=== PATIENT | male | born 1955 | race Caucasian/White ===

== ENCOUNTER 2016-05-06 16:49 | Emergency (ER) | payer BC ==
[~2016-05-06] VITALS: Ht 180.3 cm; Wt 143.2 kg
[~2016-05-06 16:49] MED LIST: ATEN100T PO; ATOR-22 PO; FLX10 PO; GLIM1TAB PO; OXYC1TAB3 PO; OXYSR10 PO; [UNRECOGNIZED DRUG - OTHER] MS
[2016-05-06 16:56] VITALS: TEMP 36.7; Ht 180.3 cm; Wt 143.2 kg
[2016-05-06] MEDS ORDERED: IBUP-1428 PO (17:22)
[2016-05-06] MEDS: LABETALOL HCL IV 5 MG/ML 20ML IV STA ×2 (17:25→17:52)
--- NOTE | 2016-05-06 17:29 | EMERGENCY ROOM VISIT NOTE ---
History Report prepared by Timoteo: Jan Leal Under the Supervision of: Dr. Keaton Morgan M.D. First contact with patient: 17:10 Chief Complaint: HYPERTENSION Stated Complaint: HYPERTENSION, ELEVATED HEART R- PHYSICIAN REFERRED History of Present Illness The patient is a 61 year old male who presents to the Emergency Room with complaints of persistent hypertension that was detected prior to arrival. The patient was referred here from his primary care physician, after it was found that the patient's heart rate was elevated and his blood pressure was "off the charts". Currently, the patient says that he feels fine and has been feeling fine, except for a cough that he has had for a couple weeks. He denies nausea, vomiting, fevers, chest pain, shortness of breath, abdominal pain, urinary burning, or leg swelling. He has chronic hypertension, but no history of diabetes. He does have a chronic tremor. He has no history of pneumonia. Source of History: patient Onset: Prior to arrival Position: other (global - hypertension) Timing: other (persistent) Associated Symptoms: + cough, No SOB, No abdominal pain, No chest pain, No fevers, No nausea, No urinary symptoms, No vomiting Note: Associated symptoms: Elevated heart rate. Denies leg swelling. Review of Systems See HPI for pertinent positives & negatives. A total of 10 systems reviewed and were otherwise negative. Past Medical & Surgical Medical Problems: (1) Hyperlipidemia (2) Hypertension (3) Tremor Surgical Problems: (1) Post-operative state Family History FHx: cancer Social History Smoking Status: Former Smoker Marital Status: single Housing Status: lives alone Occupation Status: employed Current/Historical Medications Scheduled Atenolol (Tenormin), 100 MG PO QAM Ibuprofen (Motrin), 800 MG PO QAM Allergies Coded Allergies: Erythromycin (Unverified Allergy, Unknown, per PCP/cardio note , 05/06/16) Physical Exam Vital Signs Date Time Temp Pulse Resp B/P Pulse Ox O2 Delivery O2 Flow Rate FiO2 05/06/16 18:59 101 18 132/88 97 05/06/16 18:32 112 132/88 05/06/16 17:36 110 20 180/97 96 05/06/16 17:25 116 20 182/94 95 05/06/16 16:56 36.7 108 18 202/118 96 Room Air Physical Exam GENERAL: Patient is morbidly obese, in no acute distress. HEENT: No acute trauma, normocephalic atraumatic, mucous membranes moist, no nasal congestion, no scleral icterus. NECK: No stridor, no adenopathy, no meningismus, trachea is midline. LUNGS: No dyspnea. Clear to auscultation and equal bilaterally. No wheeze, no rhonchi. HEART: Tachycardic heart rate and regular rhythm. No murmurs, rubs, gallops appreciated. ABDOMEN: Soft, nontender, bowel sounds positive, no masses appreciated, no peritonitis. BACK: No midline tenderness, no CVA tenderness EXTREMITIES: Normal motion all extremities, no cyanosis, no edema. NEUROLOGIC: Flat affect. Has a tremor. Alert and oriented, no focal weakness, cranial nerves grossly intact. SKIN: No rash, no jaundice, no diaphoresis. Medical Decision & Procedures ER Provider Diagnostic Interpretation: X ray results are stated below per my interpretation and the radiologist's interpretation. CHEST ONE VIEW PORTABLE CLINICAL HISTORY: tachycardia COMPARISON STUDY: 12/22/2014 FINDINGS: Generator pack spur presumed bilateral neural stimulators are again visualized. The heart is the upper limits of normal in size. There is ill-definition left hemidiaphragm. This may indicate a small left pleural effusion and/or left basilar atelectasis/consolidation. There is mild central vascular prominence. Evaluation is limited given the patient's large body habitus and AP portable technique.[ IMPRESSION: 1. Mild central vascular prominence 2. Ill-defined left hemidiaphragm. A left pleural effusion and/or left basilar atelectasis/consolidation cannot be excluded 3. Technically limited study given the patient's large body habitus and AP portable technique Electronically signed by: Deepak Huggins M.D. 05/06/2016 5:47 PM Dictated Date/Time: 05/06/2016 5:45 PM Laboratory Results 05/06/16 17:15 Red Blood Count 4.72, Mean Corpuscular Volume 85.4, Mean Corpuscular Hemoglobin 26.7, Mean Corpuscular Hemoglobin Concent 31.3, Mean Platelet Volume 9.7, Neutrophils (%) (Auto) 72.0, Lymphocytes (%) (Auto) 16.7, Monocytes (%) (Auto) 9.2, Eosinophils (%) (Auto) 1.3, Basophils (%) (Auto) 0.4, Neutrophils # (Auto) 3.74, Lymphocytes # (Auto) 0.87, Monocytes # (Auto) 0.48, Eosinophils # (Auto) 0.07, Basophils # (Auto) 0.02 05/06/16 17:15 Test 05/06/16 17:15 05/06/16 17:21 White Blood Count 5.20 K/uL (4.8-10.8) Red Blood Count 4.72 M/uL (4.7-6.1) Hemoglobin 12.6 g/dL (14.0-18.0) Hematocrit 40.3 % (42-52) Mean Corpuscular Volume 85.4 fL (80-100) Mean Corpuscular Hemoglobin 26.7 pg (25-34) Mean Corpuscular Hemoglobin Concent 31.3 g/dl (32-36) Platelet Count 300 K/uL (130-400) Mean Platelet Volume 9.7 fL (7.4-10.4) Neutrophils (%) (Auto) 72.0 % Lymphocytes (%) (Auto) 16.7 % Monocytes (%) (Auto) 9.2 % Eosinophils (%) (Auto) 1.3 % Basophils (%) (Auto) 0.4 % Neutrophils # (Auto) 3.74 K/uL (1.4-6.5) Lymphocytes # (Auto) 0.87 K/uL (1.2-3.4) Monocytes # (Auto) 0.48 K/uL (0.11-0.59) Eosinophils # (Auto) 0.07 K/uL (0-0.5) Basophils # (Auto) 0.02 K/uL (0-0.2) RDW Standard Deviation 47.2 fL (36.4-46.3) RDW Coefficient of Variation 14.9 % (11.5-14.5) Immature Granulocyte % (Auto) 0.4 % Immature Granulocyte # (Auto) 0.02 K/uL (0.00-0.02) Anion Gap 8.0 mmol/L (3-11) Est Creatinine Clear Calc Drug Dose 144.1 ml/min Estimated GFR () 113.1 Estimated GFR (Non- 97.6 BUN/Creatinine Ratio 22.5 (10-20) Calcium Level 8.4 mg/dl (8.5-10.1) Troponin I < 0.015 ng/ml (0-0.045) C-Reactive Protein 0.39 mg/dl (0-0.29) Bedside Glucose 146 mg/dl (70-99) Laboratory results as reviewed by me. Medications Administered Medications (Trade) Dose Ordered Sig/Parris Route Start Time Stop Time Status Last Admin Dose Admin Metoprolol Tartrate 5 mg 5 mg NOW STAT IV 05/06/16 18:21 05/06/16 18:23 DC 05/06/16 18:32 5 MG Sodium Chloride (Nss 250ml) 250 ml @ 999 mls/hr Q16M STAT IV 05/06/16 18:21 05/06/16 18:36 DC 05/06/16 18:31 999 MLS/HR ECG Indication: other (hypertension) Rate (beats per minute): 116 Rhythm: other (very poor baseline, appears to be tachycardic rate, unknown otherwise) Findings: other (very poor baseline) Change: Repeat ECG: Sinus tachycardia at 111 bpm, PVC, no acute ischemic changes, poor baseline. ED Course 172: The patient was evaluated in room B4B. A complete history and physical exam was performed. 172: Ordered Normodyne IV 20 mg IV. 1820: Ordered NSS 250 ml @ 999 mls/hr IV, Lopressor IV 5 mg IV. 182: I reevaluated the patient and he remembers that he did not take his Atenolol this morning. 1845: Reevaluated the patient and his heart rate is down to the 90s and he wants to go home. Discussed results and discharge instructions: He verbalized understanding and agreement. The patient is ready for discharge. Medical Decision Differential: Benign Hypertension, Hypertensive Urgency/Emergency, Cardiovascular Pathology, Endocrine, Metabolic/Electrolyte, Renal Disease, Endorgan Damage, amongst other pathologies entertained. 61 yr old male with chronic tremor arrives from PCP due to hypertension and tachycardia. Work-up benign and BP trending down on its own. He is in no distress and denies any symptoms. He refuses UA. After further discussions it became clear patient has been severely non-compliant with his meds, including atenolol which he has not been taking. Tachy resolved with lopressor. I have discussed the dangers of med noncompliance. There is no indication for admission/obs at this time and patient is not interested in further work-up nor evaluation. Aware of symptoms requiring RTED. Impression Primary Impression: Tachycardia Additional Impressions: Hypertension Medical non-compliance Scribe Attestation The scribe's documentation has been prepared under my direction and personally reviewed by me in its entirety. I confirm that the note above accurately reflects all work, treatment, procedures, and medical decision making performed by me. Departure Information Dispostion Home / Self-Care Referrals Nickolas Friedman M.D. (PCP) Patient Instructions My [facility] Additional Instructions It is very important that you take your medications as prescribed. If you have chest pain, passing out, difficulty breathing, vomiting, severe headache, weakness or other concerns return for further evaluation. Problem Qualifiers Additional Impressions: Hypertension Hypertension type: essential hypertension Qualified Codes: I10 - Essential ( primary) hypertension
[2016-05-06 17:35] LABS: BASO % 0.4 %; BASO ABS # 0.02 K/uL (0-0.2); COMPLETE YES; EOS % 1.3 %; HEMATOCRIT 40.3 % (42-52); IG% 0.4 %; LYMPH % 16.7 %; LYMPH ABS # 0.87 K/uL (1.2-3.4); MEAN CELL VOLUME 85.4 fL (80-100); MEAN CORPUSCULAR HEMOGLOBIN 26.7 pg (25-34); MEAN CORPUSCULAR HGB CONC 31.3 g/dl (32-36); MEAN PLATELET VOLUME 9.7 fL (7.4-10.4); MONO % 9.2 %; PLATELET COUNT 300 K/uL (130-400); RED BLOOD COUNT 4.72 M/uL (4.7-6.1)
--- NOTE | 2016-05-06 17:48 | DIAGNOSTIC IMAGING REPORT ---
CHEST ONE VIEW PORTABLE CLINICAL HISTORY: tachycardia COMPARISON STUDY: 12/22/2014 FINDINGS: Generator pack spur presumed bilateral neural stimulators are again visualized. The heart is the upper limits of normal in size. There is ill-definition left hemidiaphragm. This may indicate a small left pleural effusion and/or left basilar atelectasis/consolidation. There is mild central vascular prominence. Evaluation is limited given the patient's large body habitus and AP portable technique.[ IMPRESSION: 1. Mild central vascular prominence 2. Ill-defined left hemidiaphragm. A left pleural effusion and/or left basilar atelectasis/consolidation cannot be excluded 3. Technically limited study given the patient's large body habitus and AP portable technique Electronically signed by: Deepak Huggins M.D. 05/06/2016 5:47 PM Dictated Date/Time: 05/06/2016 5:45 PM
[2016-05-06 17:54] LABS: BLOOD UREA NITROGEN 18 mg/dl (7-18); BUN/CREATININE RATIO 22.5 (10-20); CALCIUM 8.4 mg/dl (8.5-10.1); CARBON DIOXIDE 25 mmol/L (21-32); CHLORIDE 104 mmol/L (98-107); CREATININE 0.79 mg/dl (0.60-1.40); GLUCOSE 150 mg/dl (70-99); POTASSIUM 4.1 mmol/L (3.5-5.1); SODIUM 137 mmol/L (136-145)
[2016-05-06 17:59] LABS: C-REACTIVE PROTEIN 0.39 mg/dl (0-0.29)
[2016-05-06] MEDS ORDERED: METOPROLOL TARTRATE 1 MG/ML VIAL IV STA (18:21)
[2016-05-06] MEDS ORDERED: SODIUM CHLORIDE 0.9% 250ML 250 ML IV STA (18:21)
[2016-05-06 18:59] VITALS: BP 132/88; PULSE 101; O2SAT 97
[2016-08-13] MEDS ORDERED: LSX40 PO (08:54)
[2016-08-13] MEDS ORDERED: GLC500 PO (08:54)
[2016-08-13] MEDS ORDERED: MCRK20 PO (08:54)
[2016-08-13] MEDS ORDERED: LSN5 PO (08:54)
[2016-08-13] MEDS ORDERED: ASPEC81 PO (08:54)
[2016-08-13] MEDS ORDERED: SNM/25100 PO (08:54)
[2016-08-13] MEDS ORDERED: TPRSR25 PO (08:54)
[2016-08-13] MEDS ORDERED: ULT50X PO (08:54)
[2016-08-21] MEDS ORDERED: VNCE1000 IV (17:33)
== END 2016-05-06 19:16 | disposition home or self-care (01) ==
LOC: C.EDB 16:53
DX: R00.0 Tachycardia, unspecified (principal); I10 Essential (primary) hypertension; Z91.14 Patient's other noncompliance with medication regimen; Z87.891 Personal history of nicotine dependence

== ENCOUNTER 2016-08-06 13:34 | Inpatient (IN) | payer BC ==
[~2016-08-06] VITALS: Ht 182.9 cm; Wt 169.2 kg
[~2016-08-06 13:34] MED LIST changes: -ATOR-22 PO; -GLIM1TAB PO; +IBUP-1428 PO; -OXYSR10 PO; -[UNRECOGNIZED DRUG - OTHER] MS
[2016-08-06] MEDS ORDERED: FLUO20CA36 PO (13:54)
--- NOTE | 2016-08-06 14:02 | EMERGENCY ROOM VISIT NOTE ---
History Report prepared by Timoteo: Dimple Rios Under the Supervision of: Dr. Surya Juárez D.O. First contact with patient: 13:51 Chief Complaint: FALL Stated Complaint: FALL/ BACK PAIN History of Present Illness The patient is a 61 year old male who presents to the Emergency Room with complaints of a sudden fall that occurred around 0830 this morning. He currently rates his discomfort as a 5/10 in severity. The patient states that he lost his balance today and fell out of bed. Nursing staff reports that the patient laid on the floor for four hours until a friend came to see him. The patient reports an increase in leg swelling, weight gain, and shortness of breath with lying flat. He reports a history of chronic back pain, arthritis, and tremor. The patient reports a surgical history of bilateral knee replacements and bilateral hip replacements. He states that he was unable to get up off the floor due to his arthritis. The patient reports normal eating and drinking. He denies any alcohol or tobacco use. The patient denies any head injury, neck pain, fever, urinary symptoms, hip pain, or extremity pain. Source of History: patient Onset: 0830 this morning Position: other (global) Symptom Intensity: 5/10 Quality: other (fall) Timing: other (sudden) Associated Symptoms: + SOB, + back pain, No fevers, No neck pain, No urinary symptoms Note: Associated Symptoms: increase in leg swelling, weight gain Review of Systems See HPI for pertinent positives & negatives. A total of 10 systems reviewed and were otherwise negative. Past Medical & Surgical Medical Problems: (1) Hyperlipidemia (2) Hypertension (3) Tremor Surgical Problems: (1) Post-operative state Family History FHx: cancer Social History Smoking Status: Never Smoker Marital Status: single Housing Status: lives alone Occupation Status: employed Current/Historical Medications Scheduled Atenolol (Tenormin), 100 MG PO QAM Fluoxetine HCl (Fluoxetine HCl), 20 MG PO DAILY Allergies Coded Allergies: Erythromycin (Unverified Allergy, Unknown, per PCP/cardio note , 08/06/16) Physical Exam Vital Signs Date Time Temp Pulse Resp B/P (MAP) Pulse Ox O2 Delivery O2 Flow Rate FiO2 08/06/16 16:30 91 14 94 08/06/16 16:24 176/101 08/06/16 16:00 84 15 94 08/06/16 15:30 86 17 95 08/06/16 15:00 85 15 95 08/06/16 14:54 95 Room Air 08/06/16 14:37 89 18 157/97 08/06/16 13:41 37.7 101 16 176/99 95 Room Air Physical Exam GENERAL: Patient is awake, alert, somewhat anxious appearing, does not appear to be in pain. EYES: The conjunctivae are clear. The pupils are round and reactive. EARS, NOSE, MOUTH AND THROAT: The nose is without any evidence of any deformity. Mucous membranes are moist tongue is midline NECK: The neck is nontender and supple. RESPIRATORY: Lung sounds are diminished throughout, scattered rales in all lung wheeler, shallow respirations. CARDIOVASCULAR: Regular rate and rhythm noted there no murmurs rubs or gallops normal S1 normal S2 GASTROINTESTINAL: The abdomen is soft. Bowel sounds are present in all quadrants. Abdomen is nontender MUSCULOSKELETAL/EXTREMITIES: There is no evidence of gross deformity full range of motion is noted in the hips and shoulders SKIN: Pedal edema noted bilaterally, no erythema or signs of cellulitis. NEUROLOGIC: Patient is awake alert and oriented x3. Medical Decision & Procedures ER Provider Diagnostic Interpretation: X-ray results as stated below per interpretation by me and the radiologist. CHEST ONE VIEW PORTABLE CLINICAL HISTORY: Sepsis COMPARISON STUDY: 05/06/2016 FINDINGS: The heart remains mildly enlarged. Bilateral neurostimulator generator packs are again visualized. There is mild central vascular prominence unchanged the prior study. There is no lobar consolidation. Evaluation is limited due to the patient's large body habitus.[ IMPRESSION: Mild cardiomegaly and central vascular prominence. No evidence of focal pulmonary consolidation Electronically signed by: Deepak Huggins M.D. 08/06/2016 2:22 PM Dictated Date/Time: 08/06/2016 2:21 PM Laboratory Results 08/06/16 13:55 Red Blood Count 4.75, Mean Corpuscular Volume 83.4, Mean Corpuscular Hemoglobin 24.8, Mean Corpuscular Hemoglobin Concent 29.8, Mean Platelet Volume 9.8, Neutrophils (%) (Auto) 82.3, Lymphocytes (%) (Auto) 7.4, Monocytes (%) (Auto) 9.3, Eosinophils (%) (Auto) 0.5, Basophils (%) (Auto) 0.3, Neutrophils # (Auto) 4.89, Lymphocytes # (Auto) 0.44, Monocytes # (Auto) 0.55, Eosinophils # (Auto) 0.03, Basophils # (Auto) 0.02 08/06/16 13:55 Test 08/06/16 13:55 08/06/16 14:43 White Blood Count 5.94 K/uL (4.8-10.8) Red Blood Count 4.75 M/uL (4.7-6.1) Hemoglobin 11.8 g/dL (14.0-18.0) Hematocrit 39.6 % (42-52) Mean Corpuscular Volume 83.4 fL (80-100) Mean Corpuscular Hemoglobin 24.8 pg (25-34) Mean Corpuscular Hemoglobin Concent 29.8 g/dl (32-36) Platelet Count 258 K/uL (130-400) Mean Platelet Volume 9.8 fL (7.4-10.4) Neutrophils (%) (Auto) 82.3 % Lymphocytes (%) (Auto) 7.4 % Monocytes (%) (Auto) 9.3 % Eosinophils (%) (Auto) 0.5 % Basophils (%) (Auto) 0.3 % Neutrophils # (Auto) 4.89 K/uL (1.4-6.5) Lymphocytes # (Auto) 0.44 K/uL (1.2-3.4) Monocytes # (Auto) 0.55 K/uL (0.11-0.59) Eosinophils # (Auto) 0.03 K/uL (0-0.5) Basophils # (Auto) 0.02 K/uL (0-0.2) RDW Standard Deviation 49.7 fL (36.4-46.3) RDW Coefficient of Variation 16.3 % (11.5-14.5) Immature Granulocyte % (Auto) 0.2 % Immature Granulocyte # (Auto) 0.01 K/uL (0.00-0.02) Erythrocyte Sedimentation Rate 19 mm/hr (0-14) Prothrombin Time 10.7 SECONDS (9.0-12.0) Prothromb Time International Ratio 1.0 (0.9-1.1) Activated Partial Thromboplast Time 21.3 SECONDS (21.0-31.0) Partial Thromboplastin Ratio 0.8 Anion Gap 8.0 mmol/L (3-11) Est Creatinine Clear Calc Drug Dose 158.7 ml/min Estimated GFR () 110.8 Estimated GFR (Non- 95.6 BUN/Creatinine Ratio 24.9 (10-20) Calcium Level 8.4 mg/dl (8.5-10.1) Phosphorus Level 3.0 mg/dl (2.5-4.9) Magnesium Level 2.1 mg/dl (1.8-2.4) Total Bilirubin 0.4 mg/dl (0.2-1) Aspartate Amino Transf (AST/SGOT) 15 U/L (15-37) Alanine Aminotransferase (ALT/SGPT) 25 U/L (12-78) Alkaline Phosphatase 50 U/L (45-117) Total Creatine Kinase 171 U/L (39-308) Creatine Kinase MB 1.3 ng/ml (0.5-3.6) Creatine Kinase MB Ratio 0.8 (0-3.0) Troponin I 0.048 ng/ml (0-0.045) C-Reactive Protein 0.44 mg/dl (0-0.29) Pro-B-Type Natriuretic Peptide 120 pg/ml (0-900) Total Protein 7.3 gm/dl (6.4-8.2) Albumin 3.5 gm/dl (3.4-5.0) Globulin 3.8 gm/dl (2.5-4.0) Albumin/Globulin Ratio 0.9 (0.9-2) Lipase 157 U/L (73-393) Venous Blood pH 7.42 (7.36-7.41) Venous Blood Partial Pressure CO2 45 mmHg (38.0-50.0) Venous Blood Partial Pressure O2 39 mmHg Venous Blood HCO3 28 mmol/L Venous Blood Oxygen Saturation 72.5 % Venous Blood Base Excess 3.3 mmol/L Laboratory results per my review. ECG Indication: SOB/dyspnea Rate (beats per minute): 89 Rhythm: normal sinus Findings: no ectopy, other (no acute ST segment abnormalities, poor baseline due to the patient's implanted stimulator) ED Course 1353: The patient was evaluated in room A3. A complete history and physical examination were performed. 1631: Per nursing staff, the patient had difficulty with his ambulation trial. 1644: I discussed the patients case with MICHAEL Carter. He is going to evaluate the patient for further treatment. 1705: I reevaluated the patient and he is resting. I discussed all the exam findings with him and I discussed the treatment plan. He verbalized complete understanding and agreement. He is going to be evaluated for further treatment/ Medical Decision Differential diagnosis: Etiologies such as metabolic, infection, hypo/hyperglycemia, electrolyte abnormalities, cardiac sources, intracerebral event, toxicologic, neurologic, as well as others were entertained. Medication Reconciliation: I attest that I have personally reviewed the patient' s current medications list. Blood pressure screening: Patient was found to have an elevated blood pressure and was referred to their primary doctor for recheck and further treatment. The patient is a 61-year-old male who presented to the emergency department for an evaluation of lower extremity weakness and back pain. The patient has a history of obesity. He fell out of bed and was unable to get back into bed. The patient was brought to the emergency room by ambulance after significant difficulty in trying to help him ambulate. The patient was very listless. I am unsure if this is the patient's baseline. I discussed the patient's laboratory and radiographic studies with him. Because of his ongoing symptoms and difficulty ambulating as well as the severity of his shortness of breath upon any induration whatsoever I discussed his case with the on-call [facility] hospitalist. He was found have an elevated troponin but I am unsure the significance of this at this time. He will definitely require further workup prior to any final disposition. Consults Time Called: 164 Consulting Physician: MICHAEL Carter Returned Call: 1644 I discussed the patients case with MICHAEL Carter. He is going to evaluate the patient for further treatment. Impression Primary Impression: Shortness of breath Additional Impressions: Dyspnea on exertion Weakness Chronic low back pain Inability to ambulate due to multiple joints Scribe Attestation The scribe's documentation has been prepared under my direction and personally reviewed by me in its entirety. I confirm that the note above accurately reflects all work, treatment, procedures, and medical decision making performed by me. Departure Information Dispostion Being Evaluated By Hospitalist Referrals Nickolas Friedman M.D. (PCP) Problem Qualifiers Additional Impressions: Chronic low back pain Back pain laterality: unspecified Sciatica presence: without sciatica Qualified Codes: M54.5 - Low back pain; G89.29 - Other chronic pain
[2016-08-06 14:11] LABS: BASO % 0.3 %; BASO ABS # 0.02 K/uL (0-0.2); COMPLETE YES; EOS % 0.5 %; HEMATOCRIT 39.6 % (42-52); IG% 0.2 %; LYMPH % 7.4 %; LYMPH ABS # 0.44 K/uL (1.2-3.4); MEAN CELL VOLUME 83.4 fL (80-100); MEAN CORPUSCULAR HEMOGLOBIN 24.8 pg (25-34); MEAN CORPUSCULAR HGB CONC 29.8 g/dl (32-36); MEAN PLATELET VOLUME 9.8 fL (7.4-10.4); MONO % 9.3 %; NEUT % 82.3 %; PLATELET COUNT 258 K/uL (130-400); RED BLOOD COUNT 4.75 M/uL (4.7-6.1); WHITE BLOOD COUNT 5.94 K/uL (4.8-10.8)
[2016-08-06 14:21] LABS: PARTIAL THROMBOPLASTIN RATIO 0.8; PROTHROMBIN TIME (PATIENT) 10.7 SECONDS (9.0-12.0)
--- NOTE | 2016-08-06 14:24 | DIAGNOSTIC IMAGING REPORT ---
CHEST ONE VIEW PORTABLE CLINICAL HISTORY: Sepsis COMPARISON STUDY: 05/06/2016 FINDINGS: The heart remains mildly enlarged. Bilateral neurostimulator generator packs are again visualized. There is mild central vascular prominence unchanged the prior study. There is no lobar consolidation. Evaluation is limited due to the patient's large body habitus.[ IMPRESSION: Mild cardiomegaly and central vascular prominence. No evidence of focal pulmonary consolidation Electronically signed by: Deepak Huggins M.D. 08/06/2016 2:22 PM Dictated Date/Time: 08/06/2016 2:21 PM
[2016-08-06 14:29] LABS: BUN/CREATININE RATIO 24.9 (10-20); C-REACTIVE PROTEIN 0.44 mg/dl (0-0.29); CALCIUM 8.4 mg/dl (8.5-10.1); CREATININE 0.83 mg/dl (0.60-1.40); MAGNESIUM 2.1 mg/dl (1.8-2.4); POTASSIUM 4.3 mmol/L (3.5-5.1)
[2016-08-06 14:38] LABS: ALB/GLOB RATIO 0.9 (0.9-2); CKMB/CK RATIO 0.8 (0-3.0)
[2016-08-06 14:51] LABS: VEN BLD GAS O2 SATURATION 72.5 %; VEN BLOOD GAS BASE EXCESS 3.3 mmol/L
[2016-08-06] MEDS ORDERED: ZOLPIDEM TARTRATE 5 MG TAB PO PRN (20:30)
[2016-08-06] MEDS ORDERED: POLYETHYLENE (MIRALAX) 17 GM PACK PO PRN (20:30)
--- NOTE | 2016-08-06 21:05 | HISTORY & PHYSICAL EXAMINATION ---
DATE OF ADMISSION: 08/06/2016 CHIEF COMPLAINT: Severe shortness of breath -- fall. HISTORY OF PRESENT ILLNESS: The patient is a 61-year-old man who is morbidly obese, does not smoke, lives by himself. The patient stated that he has static tremors that he has to implant neuro stimulators that keep his tremors under control. He also has morbid obesity, hypertension, and dyslipidemia. The patient had a fall that occurred earlier this morning and was not able to stand up due to left lower extremity weakness. He stayed on the floor for a few hours until his friend came to the house and found him and called 911. He complains of severe shortness of breath on minimal exertion and increased leg swelling. Also, complained of severe deterioration in his tremors in his hands. Will be admitted for further evaluation and management. REVIEW OF SYSTEMS: Denies any headache, double vision, blurry vision. Denies any chest pain but admits to severe shortness of breath. Denies any palpitations. Denies any cough, wheezing. Denies any diarrhea, blood in the stool. Denies any burning sensation in the urine or blood. Denies any focal weakness, tingling or numbness, but has weak left lower extremity. Denies any skin rash or erythema. Admits to significant tremors that are getting worse. FAMILY HISTORY: Positive for cancer. PAST MEDICAL HISTORY: As HPI. SOCIAL HISTORY: Does not smoke, drinks socially once every month. Single, lives alone. CURRENT HOME MEDICATIONS: 1. Atenolol 100 mg p.o. daily. 2. Fluoxetine 20 mg p.o. daily. ALLERGIES: ALLERGY TO ERYTHROMYCIN. PHYSICAL EXAMINATION: VITAL SIGNS: Temperature is 37.7, heart rate is 91, respirations 14, blood pressure 176/101, pulse ox is 94% on room air. GENERAL: Morbidly obese, appears to be in mild distress. HEENT: No jaundice. No pallor with mucous membranes. NECK: Supple. No swelling. HEART: S1, S2 normal. No gallop, rub or murmur. LUNGS: Extremely hard to auscultate due to morbid obesity but can appreciate decreased air entry bilaterally. ABDOMEN: Soft, nontender, nondistended. The patient does have 2 implants under the skin in the anterior chest wall on both sides, right and left. MUSCULOSKELETAL: Bilateral lower extremity edema. SKIN: No rash or erythema. NEUROLOGIC: Awake, alert, oriented to time, place, and person and follow commands. Moves all extremities, but has a very slow cerebration, Answers questions very slowly. IMAGING: Chest x-ray showed cardiomegaly and bilateral lung congestion. LABORATORY DATA: White blood cell count 5.9, hemoglobin 11.8, platelet 258. BUN is 21, creatinine 0.8. Sodium 138, potassium 4.3, magnesium is 2.1, phosphorus 3. BNP is 120. Lipase is 157. ASSESSMENT: 1. Severe exertional shortness of breath. 2. Severe deconditioning and generalized weakness. 3. Left lower extremity weakness. 4. Morbid obesity. 5. Clinically suspected obstructive sleep apnea/obesity hypoventilation syndrome. 6. 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 7. Suspected congestive heart failure, initial diagnosis unspecified. 8. Chronic lower back pain and neck pain. PLAN: 1. Admit patient to telemetry. Obtain D-dimer stat to rule out underlying PE or DVT. 2. Obtain neurology consult, patient was supposed to see Dr. Virk as an outpatient anyway. 3. Obtain 2-D echo. 4. Obtain TSH, lipids and hemoglobin A1c to stratify his risk. 5. Obtain serial cardiac enzymes, first set was borderline positive. 6. Obtain PT and OT. 7. Continue home medications. 8. We will switch atenolol to Toprol-XL and add small dose of lisinopril/hydrochlorothiazide to control the blood pressure. 9. Overnight oxygen saturation recording to rule out obstructive sleep apnea. [facility]
[2016-08-06 21:26] LABS: CHOLESTEROL/HDL RATIO 3.6; THYROID STIMULATING HORMONE 0.747 uIu/ml (0.300-4.500)
[2016-08-06 21:59] VITALS: BP_SYST 217; BP_SYST 221; BP_DIAS 110; BP_DIAS 133; PULSE 88; TEMP 37.5; O2SAT 96; BMI 52.3
[2016-08-06 22:19] VITALS: BP 176/90
[2016-08-06] MEDS: ASPIRIN 325 MG ECTAB PO SCH (22:28)
[2016-08-06] MEDS: HEPARIN SOD 5000 UNIT/0.5 ML CARP SQ SCH (22:30)
[2016-08-06 22:33] LABS: MANUAL MICROSCOPIC REQUIRED? NO; REVIEW REQ? NO; URINE APPEARANCE CLEAR (CLEAR); URINE BILIRUBIN NEG (NEG); URINE COLOR YELLOW; URINE NITRITE NEG (NEG); URINE SPECIFIC GRAVITY 1.023 (1.000-1.030); UROBILINOGEN NEG (NEG); ZZUR CULT IF INDIC CLEAN CATCH NO
[2016-08-06] MEDS ORDERED: METOPROLOL TARTRATE 1 MG/ML VIAL IV PRN (23:00)
[2016-08-06] MEDS: SODIUM CHLORIDE 0.9% 1000ML 1,000 ML IV SCH (23:35)
[2016-08-06] MEDS: ACETAMINOPHEN 500 MG TAB PO SCH (23:51)
[2016-08-07] VITALS (16 sets, daily range): BP systolic 136–162; BP diastolic 66–94; PULSE 72–92; TEMP 36.6–37.4; O2SAT 90–99; Ht 182.9 cm; Wt 169.2 kg
[2016-08-07 02:23] LABS: BASO % 0.1 %; BASO ABS # 0.01 K/uL (0-0.2); COMPLETE YES; EOS % 1.3 %; HEMATOCRIT 35.4 % (42-52); IG% 0.3 %; LYMPH % 13.5 %; MEAN CELL VOLUME 84.1 fL (80-100); MEAN CORPUSCULAR HEMOGLOBIN 26.1 pg (25-34); MEAN CORPUSCULAR HGB CONC 31.1 g/dl (32-36); MEAN PLATELET VOLUME 9.5 fL (7.4-10.4); MONO % 10.2 %; NEUT % 74.6 %; PLATELET COUNT 246 K/uL (130-400); RED BLOOD COUNT 4.21 M/uL (4.7-6.1); WHITE BLOOD COUNT 6.69 K/uL (4.8-10.8)
[2016-08-07 02:36] LABS: ALT/SGPT 22 U/L (12-78); AST/SGOT 13 U/L (15-37); BLOOD UREA NITROGEN 16 mg/dl (7-18); BUN/CREATININE RATIO 22.4 (10-20); CALCIUM 7.8 mg/dl (8.5-10.1); CARBON DIOXIDE 29 mmol/L (21-32); CHLORIDE 103 mmol/L (98-107); CREATININE 0.71 mg/dl (0.60-1.40); GLUCOSE 170 mg/dl (70-99); MAGNESIUM 2.1 mg/dl (1.8-2.4); POTASSIUM 3.7 mmol/L (3.5-5.1); SODIUM 139 mmol/L (136-145)
[2016-08-07 02:45] LABS: ALB/GLOB RATIO 0.9 (0.9-2); ALKALINE PHOSPHATASE 51 U/L (45-117); PHOSPHORUS 3.9 mg/dl (2.5-4.9)
[2016-08-07] MEDS: ACETAMINOPHEN 500 MG TAB PO SCH ×3 (05:35→19:47)
[2016-08-07] MEDS: HEPARIN SOD 5000 UNIT/0.5 ML CARP SQ SCH ×3 (05:39→20:38)
[2016-08-07 06:53] LABS: ESTIMATED AVERAGE GLUCOSE 166 mg/dl; HA1C FLAG Normal (Normal)
[2016-08-07] MEDS ORDERED: PERFLUTREN LIPID MICROSPHERE (DEFINITY) IV ONE (07:24)
--- NOTE | 2016-08-07 08:08 | Hospitalist Progress Note ---
Hospitalist Progress Note Date of Service Aug 07, 2016. (Guera Freeman PA-C) Subjective Pt evaluation today including: conversation w/ patient, physical exam, chart review, lab review, review of studies Pain: None PO Intake: Good Voiding: no voiding problems The patient was seen and examined this morning. Pt reports feeling very tired as he did not sleep overnight. His breathing is "wheezy" and has a cough, which sounds wet to him and he's hoping that he can cough something up. He denies any chest pain. Of note, he reports having two implanted neurostimulators and a generator that runs them which slow his speech. If he turns off the generator, he starts talking normally after a while, but tremors also return. This was placed by Dr. Calderón at [facility] in 2012 per his report. While the generator runs it impairs the ability for us to get an EKG. He has gained 25 lbs in the past 6 months due to worsened mobility. He does not check his blood sugar as previously the hgb A1C has been fine, he has not required medication for a long time, but had taken something orally for glucose control in the past. Constitutional: + fatigue, No fever, No chills, No sweats Eyes: No redness, No diplopia ENT: No nasal symptoms, No sore throat, No trouble swallowing Respiratory: + cough, + wheezing, + shortness of breath, + dyspnea on exertion, No sputum, No dyspnea at rest Cardiovascular: No chest pain, No palpitations Abdomen: No pain, No nausea, No vomiting, No diarrhea, No constipation Musculoskeletal: + swelling (BLE), No joint pain Neurologic: + weakness (BLE), + problem reported (uses cane for ambulation) , No numbness/tingling Endo: + fatigue Skin: No rash, No itch (Guera Freeman PA-C) Objective Vital Signs Date Time Temp Pulse Resp B/P (MAP) Pulse Ox O2 Delivery O2 Flow Rate FiO2 08/07/16 07:04 36.7 74 20 159/84 (109) 96 Room Air 08/07/16 04:00 36.6 72 19 153/85 (107) 96 Room Air 08/07/16 04:00 95 Room Air 08/07/16 00:30 36.6 86 18 156/66 (96) 95 Room Air 08/07/16 00:30 95 Room Air 08/07/16 00:00 95 08/06/16 22:19 176/90 (118) 08/06/16 21:59 37.5 88 19 217/110 96 Room Air 221/133 08/06/16 21:14 37.7 82 17 155/99 98 08/06/16 20:45 82 17 155/99 98 08/06/16 20:15 90 15 98 08/06/16 19:45 87 17 97 08/06/16 19:15 89 19 97 08/06/16 18:45 82 18 08/06/16 18:40 85 14 96 08/06/16 18:10 83 14 97 08/06/16 18:05 83 18 176/99 96 08/06/16 17:35 87 18 96 08/06/16 17:05 88 17 94 08/06/16 16:35 87 17 94 08/06/16 16:30 91 14 94 08/06/16 16:24 176/101 08/06/16 16:00 84 15 94 08/06/16 15:30 86 17 95 08/06/16 15:00 85 15 95 08/06/16 14:54 95 Room Air 08/06/16 14:37 89 18 157/97 08/06/16 13:41 37.7 101 16 176/99 95 Room Air (Guera Freeman, PA-C) Physical Exam General Appearance: WD/WN, no apparent distress, + obese (morbidly), + pertinent finding (slow speech) Eyes: PERRL, EOMI ENT: hearing grossly normal, pharynx normal Neck: supple, no JVD Respiratory/Chest: no respiratory distress, no accessory muscle use, + pertinent finding (On room air, + cough, nonproductive, + inspiratory & expiratory wheeze on R, diminished breath sounds on the left. ) Cardiovascular: regular rate, rhythm, no JVD, no murmur Abdomen: normal bowel sounds, non tender, soft, no organomegaly Extremities: no calf tenderness, + pedal edema (1+ pitting in BLE) Neurologic/Psychiatric: alert, oriented x 3, + pertinent finding (speech is slowed. No tremor apparent throughout exam. ) Skin: normal color, warm/dry (Guera Freeman PA-C) Laboratory Results Last 24 Hours Test 08/06/16 13:55 08/06/16 14:06 08/06/16 14:43 08/06/16 20:41 White Blood Count 5.94 K/uL Red Blood Count 4.75 M/uL Hemoglobin 11.8 g/dL Hematocrit 39.6 % Mean Corpuscular Volume 83.4 fL Mean Corpuscular Hemoglobin 24.8 pg Mean Corpuscular Hemoglobin Concent 29.8 g/dl Platelet Count 258 K/uL Mean Platelet Volume 9.8 fL Neutrophils (%) (Auto) 82.3 % Lymphocytes (%) (Auto) 7.4 % Monocytes (%) (Auto) 9.3 % Eosinophils (%) (Auto) 0.5 % Basophils (%) (Auto) 0.3 % Neutrophils # (Auto) 4.89 K/uL Lymphocytes # (Auto) 0.44 K/uL Monocytes # (Auto) 0.55 K/uL Eosinophils # (Auto) 0.03 K/uL Basophils # (Auto) 0.02 K/uL RDW Standard Deviation 49.7 fL RDW Coefficient of Variation 16.3 % Immature Granulocyte % (Auto) 0.2 % Immature Granulocyte # (Auto) 0.01 K/uL Erythrocyte Sedimentation Rate 19 mm/hr Prothrombin Time 10.7 SECONDS Prothromb Time International Ratio 1.0 Activated Partial Thromboplast Time 21.3 SECONDS Partial Thromboplastin Ratio 0.8 Sodium Level 138 mmol/L Potassium Level 4.3 mmol/L Chloride Level 104 mmol/L Carbon Dioxide Level 26 mmol/L Anion Gap 8.0 mmol/L Blood Urea Nitrogen 21 mg/dl Creatinine 0.83 mg/dl Est Creatinine Clear Calc Drug Dose 158.7 ml/min Estimated GFR () 110.8 Estimated GFR (Non- 95.6 BUN/Creatinine Ratio 24.9 Random Glucose 159 mg/dl Calcium Level 8.4 mg/dl Phosphorus Level 3.0 mg/dl Magnesium Level 2.1 mg/dl Total Bilirubin 0.4 mg/dl Aspartate Amino Transf (AST/SGOT) 15 U/L Alanine Aminotransferase (ALT/SGPT) 25 U/L Alkaline Phosphatase 50 U/L Total Creatine Kinase 171 U/L Creatine Kinase MB 1.3 ng/ml Creatine Kinase MB Ratio 0.8 Troponin I 0.048 ng/ml 0.059 ng/ml C-Reactive Protein 0.44 mg/dl Pro-B-Type Natriuretic Peptide 120 pg/ml Total Protein 7.3 gm/dl Albumin 3.5 gm/dl Globulin 3.8 gm/dl Albumin/Globulin Ratio 0.9 Lipase 157 U/L Bedside Lactic Acid Venous 1.99 mmol/L Venous Blood pH 7.42 Venous Blood Partial Pressure CO2 45 mmHg Venous Blood Partial Pressure O2 39 mmHg Venous Blood HCO3 28 mmol/L Venous Blood Oxygen Saturation 72.5 % Venous Blood Base Excess 3.3 mmol/L Triglycerides Level 115 mg/dl Cholesterol Level 160 mg/dl HDL Cholesterol 45 mg/dl LDL Cholesterol, Calculated 92 mg/dl VLDL Cholesterol, Calculated 23 mg/dl Cholesterol/HDL Ratio 3.6 Procalcitonin 0.10 ng/ml Thyroid Stimulating Hormone (TSH) 0.747 uIu/ml Test 08/06/16 21:45 08/07/16 02:05 08/07/16 07:28 Urine Color YELLOW Urine Appearance CLEAR Urine pH 6.0 Urine Specific Bayard 1.023 Urine Protein NEG Urine Glucose (UA) 2+ Urine Ketones NEG Urine Occult Blood NEG Urine Nitrite NEG Urine Bilirubin NEG Urine Urobilinogen NEG Urine Leukocyte Esterase NEG Urine WBC (Auto) 1-5 /hpf Urine RBC (Auto) 0-4 /hpf Urine Hyaline Casts (Auto) 1-5 /lpf Urine Epithelial Cells (Auto) 10-20 /lpf Urine Bacteria (Auto) NEG White Blood Count 6.69 K/uL Red Blood Count 4.21 M/uL Hemoglobin 11.0 g/dL Hematocrit 35.4 % Mean Corpuscular Volume 84.1 fL Mean Corpuscular Hemoglobin 26.1 pg Mean Corpuscular Hemoglobin Concent 31.1 g/dl Platelet Count 246 K/uL Mean Platelet Volume 9.5 fL Neutrophils (%) (Auto) 74.6 % Lymphocytes (%) (Auto) 13.5 % Monocytes (%) (Auto) 10.2 % Eosinophils (%) (Auto) 1.3 % Basophils (%) (Auto) 0.1 % Neutrophils # (Auto) 4.99 K/uL Lymphocytes # (Auto) 0.90 K/uL Monocytes # (Auto) 0.68 K/uL Eosinophils # (Auto) 0.09 K/uL Basophils # (Auto) 0.01 K/uL RDW Standard Deviation 50.4 fL RDW Coefficient of Variation 16.6 % Immature Granulocyte % (Auto) 0.3 % Immature Granulocyte # (Auto) 0.02 K/uL Sodium Level 139 mmol/L Potassium Level 3.7 mmol/L Chloride Level 103 mmol/L Carbon Dioxide Level 29 mmol/L Anion Gap 7.0 mmol/L Blood Urea Nitrogen 16 mg/dl Creatinine 0.71 mg/dl Est Creatinine Clear Calc Drug Dose 182.4 ml/min Estimated GFR () 118.2 Estimated GFR (Non- 102.0 BUN/Creatinine Ratio 22.4 Random Glucose 170 mg/dl Estimated Average Glucose 166 mg/dl Hemoglobin A1c 7.4 % Lactic Acid Level 1.2 mmol/L Calcium Level 7.8 mg/dl Phosphorus Level 3.9 mg/dl Magnesium Level 2.1 mg/dl Total Bilirubin 0.4 mg/dl Aspartate Amino Transf (AST/SGOT) 13 U/L Alanine Aminotransferase (ALT/SGPT) 22 U/L Alkaline Phosphatase 51 U/L Creatine Kinase MB 1.4 ng/ml Creatine Kinase MB Ratio Troponin I 0.049 ng/ml Total Protein 6.6 gm/dl Albumin 3.2 gm/dl Globulin 3.4 gm/dl Albumin/Globulin Ratio 0.9 Hepatitis C Antibody Screen NEG Bedside Glucose 118 mg/dl (Guera Freeman, PAJasperC) Assessment and Plan 61 yo M with PMHx of hz of tremors with implant neuro stimulator, HTN, HLD, morbid obesity who sustained a fall yesterday and was unable to get up due to bilateral lower extremity weakness, sob on minimal exertion and increased leg swelling. Weakness and SOB with exertion and increased leg swelling - Neurology consulted, pt follows with Dr. Virk as an outpatient. - ? If there is a component of heart failure? Troponins were mildly elevated 0.048-->0.059-->0.049. Echo completed showing grade 1 diastolic dysfunction Possible that this was a cardiac event although will rule out PE today with CTA. EKG was obtained however neuro stimulator inhibits accurate read. I have asked the pt to bring in the device to turn it off in the event that we need a readable EKG. - CXR reviewed: IMPRESSION: Mild cardiomegaly and central vascular prominence. No evidence of focal pulmonary consolidation - D-dimer in process,have ordered a CTA to r/o PE or DVT due to body habitus - Follow BCx - PT/OT consulted Tremor - s/p neuro-stimulator and generator [place] [address] Calderón at [facility], office #: [phone] - will call and attempt to get EMR - Have asked the pt to bring the generator to the hospital so that if stimulator needs turned off, it is available to do so. HTN - Pt was in hypertensive urgency when arrived with SBBp > 200s. - Will hold atenolol 100 QAm for now and change to Toprol-XL 25 mg QAM and Lisinopril 5 mg QAM. He got a dose of toprol yesterday and BP seems to be much better. - Checking 2-D echo - Lipids are WNL: HDL is 45 and LDL is 92. DM II - Hgb A1C= 7.4 - A1C has been fine for years per pt report. He was previously on an oral agent, although was taken off bc his numbers were ok. He cannot recall this medication or when it was stopped. Pt not on any regimen as an outpatient currently, nor does he check blood glucose regularly. May need to initiate metformin as an outpatient or start him on insulin. - ISS with accuchecks ordered - Will ask cardiopulmonary supervisor to visit the patient. Morbid Obesity - BMI=54. - Pt has gained 25 lbs in the past 6 months, discussion regarding diet was held. He is agreeable to being more careful with his diet, and is also agreeable to speaking with the cardiopulmonary supervisor. ARCHIE - Pt wears CPAP at home at baseline, will order for tonight. He did not wear it last night but did not sleep. Speech appears slow by pt reports this is his baseline, if speech or neurological status worsens will check ABG. DVT ppx: Teds, SCDS, heparin Q8H CODE STATUS: FULL code Disposition: From home, lives alone, discharge unknown, likely > 2 days. (Guera Freeman PA-C) Attending Attestation & Admission Note: Pt seen/examined, chart reviewed, and care plan d/w TRUNG Freeman. I agree w/ the burch components of her documentation. Pt with c/o cough, sob, weight gain. Vitals - elevated BPs, O2 sats acceptable gen - nad, obese neck - unable to assess for JVD due to body habitus heart - RRR, s1, s2 lungs - diffuse wheezing, decreased BS bases abd - soft, NT, obese, BS+ ext - edema 2+ b/l, stasis changes, pulses 2+ b/l neuro - mild tremors a1c 7.4% bmp stable trop minimally elevated A/P: 1. suspected acute/chronic diastolic CHF - lasix 60mg IV x 1; re-eval in am 2. morbid obesity - BMI 54 3. probable pulmonary HTN based on CTA findings 4. no evidence of PEs on CTA 5. parkinson's disease with deep brain stimulator - neuro recommending adding sinemet 6. T2DM 7. HTN - uncontrolled; adding BB, YUNIEL 8. ambulatory dysfunction - PT, OT consults 9. recent fall 10. mediastinal and hilar lymphadenopathy - chronic - etiology?? sarcoid? other ? Theresa DURAN MD (Sky Duran MD)
[2016-08-07] MEDS: ASPIRIN 325 MG ECTAB PO SCH (08:42)
[2016-08-07] MEDS ORDERED: METOPROLOL SUCC 25MG EXT REL TAB PO SCH (09:00)
--- NOTE | 2016-08-07 09:18 | Medical Student: [facility] ---
Consultation Date of Consultation: Aug 07, 2016. Attending Physician: Sky Duran MD Reason for Consultation: weakness and tremors History of Present Illness Henrik Canas is a 61-year-old male with past medical history of essential tremor and bilateral total knee and hip replacements who presented to the ED on 2016 after falling. On the morning of 08/06/2016 at 0830, Mr. Canas attempted to transfer out of bed. He reported feeling unsteady and weak in his legs. He denies any explicit lightheadedness or vertigo during the episode. He fell on his left side and could not stand up. He states that he was dehydrated and after his fall felt as if he were "in a daze." At around 1130, he called his friend for help, and upon arrival, his friend called 911. He denies any head trauma or loss of consciousness during his fall. Today Mr. Canas complains primarily of weakness (i.e., feeling fatigued) in all four limbs and back pain. Currently, patient complains primarily of full body weakness, low back pain, and a persistent cough. Past Medical/Surgical History Medical History: 1) Mixed tremor - Mr. Canas reports having a bilateral resting tremor in his hands for his whole life, which was brought to his attention when a childhood friend commented during adulthood that he has noticed a tremor for as long as he knew Mr. Canas. In retrospect, Mr. Canas's essential tremor was improved with alcohol. He reports drinking 3-4 drinks a day for twenty years but stopped drinking alcohol in 2010 left hip replacement. At that point, his essential tremor returned in both hands and his left leg. He saw Dr. Virk, who prescribed ropinirole, which did not improve his tremor, and primidone, which his tremor initially responded to. However, he eventually failed primidone therapy and in March 2012, he sought a second opinion for his tremor and underwent deep brain stimulation implantation at [facility]. His left hand and leg tremor disappeared with it but his right hand still had a slight tremor afterwards. The procedure also slowed down his speech considerably and he reports that his speech is continuing to slow down. He has not seen Dr. Virk since 2010. However, he made an appointment to see him soon due to the worsening of the tremor in both hands and in his left leg. The tremors reappeared around six months ago. Mr. Canas states the tremor appears when he moves, but I observed a resting tremor in both hands and feet during this interview. Additionally, three months ago, he began experiencing increased rigidity and "locking up" when attempting to walk. 2) Chronic low back pain 3) Hypertension - takes atenolol 100 mg. 4) Diabetes - previous history of metformin therapy but reports stopping it 2-3 years ago since he "did not have diabetes." However, his random glucose upon admission was 170 mg/dL. 5) Hyperlipidemia 6) Depression - his depression has worsened in the past month due to all of his chronic health problems and was placed on 20 mg Prozac last week. It is not currently on his medication list as an inpatient. 7) Morbid obesity 8) Sleep apnea - reports using CPAP every night when sleeping in his bed. Surgical History: 1) Implantation of deep brain stimulator devices - underwent surgery at [facility] in March 2012 for ET. Replaced the device in his chest in March 2013 with a rechargeable device. 2) Status post bilateral total knee and hip replacements - his right and left knees were replaced in 2010, his left hip was replaced in 2011, and his right hip was replaced in 2015. 3) Status post tonsillectomy - performed at age 7. Family History Mother age age 80 from bladder cancer. Father at age 62 from cirrhosis secondary to hepatitis B or C. 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[employer]) Allergies Coded Allergies: Erythromycin (Unverified Allergy, Unknown, per PCP/cardio note , 08/06/16) Medications Current Inpatient Medications Medications (Trade) Dose Ordered Sig/Parris Route Start Time Stop Time Status Last Admin Dose Admin Heparin Sodium (Porcine) (Heparin Sq 5000 Unit/0.5ml) 5,000 unit Q8 SQ 08/06/16 22:00 09/05/16 21:59 08/07/16 05:39 5,000 UNIT Sodium Chloride 1,000 ml @ 15 mls/hr Q24H IV 08/06/16 22:00 09/05/16 21:59 6/20/17 23:35 15 MLS/HR Zolpidem Tartrate (Ambien Tab) 5 mg HSZ PRN PO 08/06/16 20:30 09/05/16 20:29 Aspirin (Ecotrin Tab) 325 mg QAM PO 08/06/16 22:00 09/05/16 21:59 08/07/16 08:42 325 MG Polyethylene (Miralax Powder Packet) 17 gm DAILY PRN PO 08/06/16 20:30 09/05/16 20:29 Acetaminophen (Tylenol Tab) 1,000 mg Q8 PO 08/07/16 06:00 09/06/16 05:59 08/07/16 05:35 1,000 MG Metoprolol Tartrate (Lopressor Iv) 5 mg Q4H PRN IV 08/06/16 23:00 09/05/16 22:59 Metoprolol Succinate (Toprol Xl Tab) 25 mg QAM PO 08/07/16 09:00 09/06/16 08:59 Lisinopril (Zestril Tab) 5 mg QAM PO 08/07/16 09:00 09/06/16 08:59 Physical Exam Date Time Temp Pulse Resp B/P (MAP) Pulse Ox O2 Delivery O2 Flow Rate FiO2 08/07/16 07:04 36.7 74 20 159/84 (109) 96 Room Air 08/07/16 04:00 36.6 72 19 153/85 (107) 96 Room Air 08/07/16 04:00 95 Room Air 08/07/16 00:30 36.6 86 18 156/66 (96) 95 Room Air 08/07/16 00:30 95 Room Air 08/07/16 00:00 95 08/06/16 22:19 176/90 (118) 08/06/16 21:59 37.5 88 19 217/110 96 Room Air 221/133 08/06/16 21:14 37.7 82 17 155/99 98 08/06/16 20:45 82 17 155/99 98 08/06/16 20:15 90 15 98 08/06/16 19:45 87 17 97 08/06/16 19:15 89 19 97 08/06/16 18:45 82 18 08/06/16 18:40 85 14 96 08/06/16 18:10 83 14 97 08/06/16 18:05 83 18 176/99 96 08/06/16 17:35 87 18 96 08/06/16 17:05 88 17 94 08/06/16 16:35 87 17 94 08/06/16 16:30 91 14 94 08/06/16 16:24 176/101 08/06/16 16:00 84 15 94 08/06/16 15:30 86 17 95 08/06/16 15:00 85 15 95 08/06/16 14:54 95 Room Air 08/06/16 14:37 89 18 157/97 08/06/16 13:41 37.7 101 16 176/99 95 Room Air Eyes: bilateral eyes normal inspection, bilateral eyes PERRL, bilateral eyes EOMI Mr. Canas is a pleasant 61-year-old male who was alert and oriented to person, place, and time. He was very pleasant to talk to. His thought processes are intact. His speech is notably slow and bus mechanic, but otherwise is free of dysarthria or aphasia. He demonstrates good recall of remote and recent events. Mr. Canas has mild to moderate masked facies, but his mood and affect seemed appropriate judging by our conversation. He reports worsening depression in the past month, but since starting Prozac last week, he has felt better, stating he thinks more clearly. CN II - both pupils are equally round and reactive to light. Visual wheeler intact bilaterally. CN III, IV, - all extraocular movements are full and intact. No nystagmus was noted. Right eyelid seemed slightly droopy, although patient did not notice it. CN V - intact sensation to light touch in forehead, upper lip, and chin bilaterally and symmetrically. CN VII - no facial droop or asymmetry noted. Normal strength of muscles of facial expression bilaterally. Masked facies. CN VIII - finger rub detected bilaterally. CN IX, X - palate elevated bilaterally & symmetrically. Midline tongue protrusion. CN XI - 5/5 strength on shoulder shrug against resistance bilaterally. CN XII - 5/5 strength on lateral deviation of tongue against resistance bilaterally. On motor exam, Mr. Canas demonstrated 5/5 strength in both deltoids, biceps, triceps, wrist extensors and flexors, and intrinsic hand muscles and 5/5 strength in both quadriceps, hip flexors, hamstrings, and gastrocnemius. He was able to complete bilateral rapid tapping movements. Bulk was normal. Mild to moderate cogwheel rigidity noted in the left arm but no rigidity in his right arm. A resting tremor was noted in both hands and feet that disappeared with movement. Dystonia was noted in the right hand. On [id number] testing, he displayed an action tremor bilaterally. Reflexes were elicited in the upper extremities, 1/4, but not in the lower extremities. A plantar reflex was elicited in both feet. Sensation to light touch was intact and symmetric in all four extremities. Gait was not assessed; patient had difficulty standing up out of a chair due to weakness. Laboratory Results Last 24 Hours Test 08/06/16 13:55 08/06/16 14:06 08/06/16 14:43 08/06/16 20:41 White Blood Count 5.94 K/uL Red Blood Count 4.75 M/uL Hemoglobin 11.8 g/dL Hematocrit 39.6 % Mean Corpuscular Volume 83.4 fL Mean Corpuscular Hemoglobin 24.8 pg Mean Corpuscular Hemoglobin Concent 29.8 g/dl Platelet Count 258 K/uL Mean Platelet Volume 9.8 fL Neutrophils (%) (Auto) 82.3 % Lymphocytes (%) (Auto) 7.4 % Monocytes (%) (Auto) 9.3 % Eosinophils (%) (Auto) 0.5 % Basophils (%) (Auto) 0.3 % Neutrophils # (Auto) 4.89 K/uL Lymphocytes # (Auto) 0.44 K/uL Monocytes # (Auto) 0.55 K/uL Eosinophils # (Auto) 0.03 K/uL Basophils # (Auto) 0.02 K/uL RDW Standard Deviation 49.7 fL RDW Coefficient of Variation 16.3 % Immature Granulocyte % (Auto) 0.2 % Immature Granulocyte # (Auto) 0.01 K/uL Erythrocyte Sedimentation Rate 19 mm/hr Prothrombin Time 10.7 SECONDS Prothromb Time International Ratio 1.0 Activated Partial Thromboplast Time 21.3 SECONDS Partial Thromboplastin Ratio 0.8 Sodium Level 138 mmol/L Potassium Level 4.3 mmol/L Chloride Level 104 mmol/L Carbon Dioxide Level 26 mmol/L Anion Gap 8.0 mmol/L Blood Urea Nitrogen 21 mg/dl Creatinine 0.83 mg/dl Est Creatinine Clear Calc Drug Dose 158.7 ml/min Estimated GFR () 110.8 Estimated GFR (Non- 95.6 BUN/Creatinine Ratio 24.9 Random Glucose 159 mg/dl Calcium Level 8.4 mg/dl Phosphorus Level 3.0 mg/dl Magnesium Level 2.1 mg/dl Total Bilirubin 0.4 mg/dl Aspartate Amino Transf (AST/SGOT) 15 U/L Alanine Aminotransferase (ALT/SGPT) 25 U/L Alkaline Phosphatase 50 U/L Total Creatine Kinase 171 U/L Creatine Kinase MB 1.3 ng/ml Creatine Kinase MB Ratio 0.8 Troponin I 0.048 ng/ml 0.059 ng/ml C-Reactive Protein 0.44 mg/dl Pro-B-Type Natriuretic Peptide 120 pg/ml Total Protein 7.3 gm/dl Albumin 3.5 gm/dl Globulin 3.8 gm/dl Albumin/Globulin Ratio 0.9 Lipase 157 U/L Bedside Lactic Acid Venous 1.99 mmol/L Venous Blood pH 7.42 Venous Blood Partial Pressure CO2 45 mmHg Venous Blood Partial Pressure O2 39 mmHg Venous Blood HCO3 28 mmol/L Venous Blood Oxygen Saturation 72.5 % Venous Blood Base Excess 3.3 mmol/L Triglycerides Level 115 mg/dl Cholesterol Level 160 mg/dl HDL Cholesterol 45 mg/dl LDL Cholesterol, Calculated 92 mg/dl VLDL Cholesterol, Calculated 23 mg/dl Cholesterol/HDL Ratio 3.6 Procalcitonin 0.10 ng/ml Thyroid Stimulating Hormone (TSH) 0.747 uIu/ml Test 08/06/16 21:45 08/07/16 02:05 08/07/16 07:28 08/07/16 08:24 Urine Color YELLOW Urine Appearance CLEAR Urine pH 6.0 Urine Specific [place] 1.023 Urine Protein NEG Urine Glucose (UA) 2+ Urine Ketones NEG Urine Occult Blood NEG Urine Nitrite NEG Urine Bilirubin NEG Urine Urobilinogen NEG Urine Leukocyte Esterase NEG Urine WBC (Auto) 1-5 /hpf Urine RBC (Auto) 0-4 /hpf Urine Hyaline Casts (Auto) 1-5 /lpf Urine Epithelial Cells (Auto) 10-20 /lpf Urine Bacteria (Auto) NEG White Blood Count 6.69 K/uL Red Blood Count 4.21 M/uL Hemoglobin 11.0 g/dL Hematocrit 35.4 % Mean Corpuscular Volume 84.1 fL Mean Corpuscular Hemoglobin 26.1 pg Mean Corpuscular Hemoglobin Concent 31.1 g/dl Platelet Count 246 K/uL Mean Platelet Volume 9.5 fL Neutrophils (%) (Auto) 74.6 % Lymphocytes (%) (Auto) 13.5 % Monocytes (%) (Auto) 10.2 % Eosinophils (%) (Auto) 1.3 % Basophils (%) (Auto) 0.1 % Neutrophils # (Auto) 4.99 K/uL Lymphocytes # (Auto) 0.90 K/uL Monocytes # (Auto) 0.68 K/uL Eosinophils # (Auto) 0.09 K/uL Basophils # (Auto) 0.01 K/uL RDW Standard Deviation 50.4 fL RDW Coefficient of Variation 16.6 % Immature Granulocyte % (Auto) 0.3 % Immature Granulocyte # (Auto) 0.02 K/uL Sodium Level 139 mmol/L Potassium Level 3.7 mmol/L Chloride Level 103 mmol/L Carbon Dioxide Level 29 mmol/L Anion Gap 7.0 mmol/L Blood Urea Nitrogen 16 mg/dl Creatinine 0.71 mg/dl Est Creatinine Clear Calc Drug Dose 182.4 ml/min Estimated GFR () 118.2 Estimated GFR (Non- 102.0 BUN/Creatinine Ratio 22.4 Random Glucose 170 mg/dl Estimated Average Glucose 166 mg/dl Hemoglobin A1c 7.4 % Lactic Acid Level 1.2 mmol/L Calcium Level 7.8 mg/dl Phosphorus Level 3.9 mg/dl Magnesium Level 2.1 mg/dl Total Bilirubin 0.4 mg/dl Aspartate Amino Transf (AST/SGOT) 13 U/L Alanine Aminotransferase (ALT/SGPT) 22 U/L Alkaline Phosphatase 51 U/L Creatine Kinase MB 1.4 ng/ml Creatine Kinase MB Ratio Troponin I 0.049 ng/ml Total Protein 6.6 gm/dl Albumin 3.2 gm/dl Globulin 3.4 gm/dl Albumin/Globulin Ratio 0.9 Hepatitis C Antibody Screen NEG Bedside Glucose 118 mg/dl Test 08/07/16 08:30 Assessment & Plan Problem List: Chronic low back pain Fall Assessment 1) Mixed tremor - patient presents with both a resting tremor and action tremor. His tremors on exam and from his history therefore suggest that he has both Parkinson disease and essential tremor, or his Parkinson disease includes elements of an action tremor. While much of history covered his essential tremor , he has several symptoms suggesting PD, including a resting tremor in all four extremities, bradykinesia, slight masked facies, dystonia, cogwheel rigidity, and anecdotal episodes of rigidity and "freezing." He is also weak and has poor balance. Plan 1) Start Sinemet - while he failed on Requip therapy after initiation in 2010, he now clearly has signs of PD and therefore Sinemet is warranted. He has an appointment with Dr. Virk in August but may start now on Sinemet. 2) Monitor DBS implants - his tremors were markedly improved with DBS implantation but have worsened in the past six months. He is monitored for his DBS twice a year but it would be recommended to follow up on his implant soon. 3) Restart Prozac - while patient reports starting Prozac last week, it does not currently appear on his medication list. As his depression has recently worsened, it is important to continue antidepressant therapy. 4) PT and OT - patient is quite weak and has poor balance, which led to his admission. However, his individual muscle strength is good. He would benefit greatly from an inpatient stay at a rehab center to regain his strength and mobility. He additionally lives alone and should thus make adjustments at home as needed with OT so he can complete ADLs.
[2016-08-07] MEDS ORDERED: OPTIRAY 320 IV PRN (09:30)
[2016-08-07] MEDS: LISINOPRIL 5 MG TAB PO SCH (10:15)
--- NOTE | 2016-08-07 10:24 | Neurology Consultation ---
Neurology Consultation Date of Consultation: Aug 07, 2016. Attending Physician: Sky Duran MD Primary Care Physician: Nickolas Friedman M.D. Reason for Consultation: Patient is a 61-year-old, who was asked to see at the request of Dr. Michoacano Noel, for neurologic consultation regarding tremor and weakness. History of Present Illness Source: patient, caregiver, clinic records, hospital records This patient tells me that he remembers having a bit of tremor in his hands, of a mild nature, when he was a teenager, in his 20s, and thereafter. He was always fairly mild and he noted that when he had a drink of alcohol it would dampen. He was a fairly heavy drinker for at least 20 years having as many as 3 -4 drinks per day but he stopped in 2010 following his total hip replacement surgery. After this, he noted that his tremor became much more prominent and he noted to sit with action and with rest. He saw Dr. Virk in 2010 who diagnosed katie-parkinsonism and a resting tremor. Requip was of no help. Primidone 50 mg 3 times a day helps some but then stopped helping. On his own, the patient went to [facility] ended up having a deep brain stimulator placed in 2012 for Parkinson's and tremor. This greatly decreased the left-sided tremor but he still had a little tremor of the right upper extremity. Following the deep brain stimulation surgery he had "slowed speech" he knows exactly what he wants to say and is not confused but comes out and a mechanically slow fashion. This has been consistent since his surgery. The patient has noticed that over the last 6 months he has had increased left- sided tremor and the right upper extremity tremor. Over the last 3 months she' s been slower and more rigid in the limbs. His speech is slower also. He has a slight bit of drooling recently. His deep brain stimulator was last checked in [place] in March 2016 and they had adjusted the voltage up bilaterally. I do not have any details regarding this. On August 06, the patient was attempting to get out of bed but as he dangled his legs over the bed and tried to stand up he lost his balance and fell. He did not hit his head or have loss of consciousness. He did not have dizziness or lightheadedness. He simply couldn't maintain his balance. He because of his size and arthritic condition as well as the parkinsonism, he could not get himself up off the floor. Around 11:30 he called for a friend and by 12:30 he was attended to by EMS. He arrived emergency room at 1341 hours with a temperature 37.7, pulse 101, respiratory rate 16, blood pressure 176/99, and O2 saturation 95%. He was in pain diffusely but had no focal findings. His speech was noticeably slow but he answered questions correctly. He feels that his left leg is a little weaker than his right and his tremor is worse. He has low back pain chronically. CBC showed mild anemia, sedimentation rate 19, glucose 159, calcium 8.4, hemoglobin A1c 7.4 and lipid profile was unremarkable. Because of his physical problems. The patient has had some significant depression over the last month. He was initiated on 20 mg fluoxetine one week ago and feels that this is already helping. 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 Since 2010 when he stopped his twenty-year history of 3-4 drinks of alcohol per day, he drinks perhaps one every 3 months or so Smoking Status: Never smoker Smokeless Tobacco Use: No Alcohol Use: occasionally Drug Use: none Marital Status: single, Housing Status: lives alone Occupation Status: retired Allergies Coded Allergies: Erythromycin (Unverified Allergy, Unknown, per PCP/cardio note , 08/06/16) Current Inpatient Medications Current Inpatient Medications Medications (Trade) Dose Ordered Sig/Parris Route Start Time Stop Time Status Last Admin Dose Admin Heparin Sodium (Porcine) (Heparin Sq 5000 Unit/0.5ml) 5,000 unit Q8 SQ 08/06/16 22:00 09/05/16 21:59 08/07/16 05:39 5,000 UNIT Sodium Chloride 1,000 ml @ 15 mls/hr Q24H IV 08/06/16 22:00 09/05/16 21:59 08/06/16 23:35 15 MLS/HR Zolpidem Tartrate (Ambien Tab) 5 mg HSZ PRN PO 08/06/16 20:30 09/05/16 20:29 Aspirin (Ecotrin Tab) 325 mg QAM PO 08/06/16 22:00 09/05/16 21:59 08/07/16 08:42 325 MG Polyethylene (Miralax Powder Packet) 17 gm DAILY PRN PO 08/06/16 20:30 09/05/16 20:29 Acetaminophen (Tylenol Tab) 1,000 mg Q8 PO 08/07/16 06:00 09/06/16 05:59 08/07/16 05:35 1,000 MG Metoprolol Tartrate (Lopressor Iv) 5 mg Q4H PRN IV 08/06/16 23:00 09/05/16 22:59 Metoprolol Succinate (Toprol Xl Tab) 25 mg QAM PO 08/07/16 09:00 09/06/16 08:59 Lisinopril (Zestril Tab) 5 mg QAM PO 08/07/16 09:00 09/06/16 08:59 Albuterol/ Ipratropium (Duoneb) 3 ml QIDR INH 08/07/16 12:00 09/06/16 11:59 Ioversol (Optiray 320) 100 ml UD PRN IV 08/07/16 09:30 08/11/16 09:29 Review of Systems Constitutional: + weakness, + fatigue Eyes: No worsening of vision, No diplopia ENT: No tinnitus, No trouble swallowing Respiratory: No cough, No shortness of breath Cardiovascular: No chest pain, No palpitations Abdomen: No pain, No nausea Musculoskeletal: + joint pain, No muscle pain Genitourinary - Male: No dysuria, No urinary incontinence Neurologic: + weakness, + balance problems, No memory loss, No numbness/ tingling, No vertigo Psychiatric: + depression symptoms, No anxiety Endocrine: + fatigue Hematologic / Lymphatic: No abnormal bleeding/bruising Integumentary: No rash Allergic / Immunologic: No hives Physical Exam Vital Signs (Past 24 Hrs): Date Time Temp Pulse Resp B/P (MAP) Pulse Ox O2 Delivery O2 Flow Rate FiO2 08/07/16 07:04 36.7 74 20 159/84 (109) 96 Room Air 08/07/16 04:00 36.6 72 19 153/85 (107) 96 Room Air 08/07/16 04:00 95 Room Air 08/07/16 00:30 36.6 86 18 156/66 (96) 95 Room Air 08/07/16 00:30 95 Room Air 08/07/16 00:00 95 08/06/16 22:19 176/90 (118) 08/06/16 21:59 37.5 88 19 217/110 96 Room Air 221/133 08/06/16 21:14 37.7 82 17 155/99 98 08/06/16 20:45 82 17 155/99 98 08/06/16 20:15 90 15 98 08/06/16 19:45 87 17 97 08/06/16 19:15 89 19 97 08/06/16 18:45 82 18 08/06/16 18:40 85 14 96 08/06/16 18:10 83 14 97 08/06/16 18:05 83 18 176/99 96 08/06/16 17:35 87 18 96 08/06/16 17:05 88 17 94 08/06/16 16:35 87 17 94 08/06/16 16:30 91 14 94 08/06/16 16:24 176/101 08/06/16 16:00 84 15 94 08/06/16 15:30 86 17 95 08/06/16 15:00 85 15 95 08/06/16 14:54 95 Room Air 08/06/16 14:37 89 18 157/97 08/06/16 13:41 37.7 101 16 176/99 95 Room Air Patient is right-handed. The patient is awake and alert. Speech is slow and deliberate but he does not have any specific aphasia or dysarthria. Mentation and thought processes are intact with orientation and normal fund of knowledge. Mood and affect seem normal and appropriate. Appearance and grooming are normal. The discs are sharp with positive venous pulsations. There are no exudates, hemorrhages, or blood vessel changes seen. Pupils are 4mm bilaterally and reactive to light. Extraocular eye muscles are intact without nystagmus. Visual acuity and visual wheeler seem normal grossly to confrontation. He has a mild positive glabellar sign. There are no deficits to sensation of the face bilaterally. Corneal reflexes are positive bilaterally. Facial strength and symmetry is normal bilaterally. Hearing seems intact grossly to voice and finger rub. Palate moves well without asymmetry. There is normal sternocleidomastoid and trapezius strength bilaterally. Tongue is midline with good strength bilaterally. He has a mild to moderate masklike face and has bradykinesia in general a mild to moderate degree. Neck is somewhat stiff with a reasonable range of motion. There are no cervical bruits. There are no cranial or ocular bruits. Heart is without murmur. Cervical, thoracic, and lumbar spine are nontender to palpation. Gait is is not testable. Stance sitting in the chair is normal. He is very difficult for him to push himself up and stand from a sitting position. He loses his balance easily. With outstretched arms there is no drift. There are mild resting tremors in the hands bilaterally and the left leg. These decrease with action. There is no ataxia with [id number] testing. He does have some mild action tremor bilaterally. There is decreased facility in the hands. There are no abnormal involuntary movements noted. Motor strength is 5/5 diffusely in the arms bilaterally including deltoids, biceps, brachioradialis, wrist flexors and extensors, cafeteria food server, and intrinsic hand muscles. Motor strength is 5/5 diffusely in the legs bilaterally including hip flexors, quadriceps, hamstring, gastrocnemius, tibialis anterior, tibialis posterior, and peroneii muscles bilaterally. Toe extensors are normal and there is good bulk in the extensor digitorum brevis muscle bilaterally. The limbs have very mild cogwheel rigidity on the left and minimal to no rigidity on the right Sensory examination is intact to pin and touch throughout all four limbs. Reflexes are 0/4 in the biceps, triceps, brachioradialis, quadriceps, and Achilles tendons bilaterally. Toes are downgoing with plantar stimulation bilaterally. Peripheral pulses are present and of normal quality distally in all four limbs. There is no peripheral edema noted. Laboratory Results Past 24 Hours: 08/07/16 02:05 Red Blood Count 4.21, Mean Corpuscular Volume 84.1, Mean Corpuscular Hemoglobin 26.1, Mean Corpuscular Hemoglobin Concent 31.1, Mean Platelet Volume 9.5, Neutrophils (%) (Auto) 74.6, Lymphocytes (%) (Auto) 13.5, Monocytes (%) (Auto) 10.2, Eosinophils (%) (Auto) 1.3, Basophils (%) (Auto) 0.1, Neutrophils # (Auto ) 4.99, Lymphocytes # (Auto) 0.90, Monocytes # (Auto) 0.68, Eosinophils # (Auto ) 0.09, Basophils # (Auto) 0.01 08/07/16 02:05 Test 08/06/16 13:55 08/06/16 14:06 08/06/16 14:43 08/06/16 20:41 Erythrocyte Sedimentation Rate 19 mm/hr (0-14) Prothrombin Time 10.7 SECONDS (9.0-12.0) Prothromb Time International Ratio 1.0 (0.9-1.1) Activated Partial Thromboplast Time 21.3 SECONDS (21.0-31.0) Partial Thromboplastin Ratio 0.8 Total Creatine Kinase 171 U/L (39-308) C-Reactive Protein 0.44 mg/dl (0-0.29) Pro-B-Type Natriuretic Peptide 120 pg/ml (0-900) Lipase 157 U/L (73-393) Bedside Lactic Acid Venous 1.99 mmol/L (0.90-1.70) Venous Blood pH 7.42 (7.36-7.41) Venous Blood Partial Pressure CO2 45 mmHg (38.0-50.0) Venous Blood Partial Pressure O2 39 mmHg Venous Blood HCO3 28 mmol/L Venous Blood Oxygen Saturation 72.5 % Venous Blood Base Excess 3.3 mmol/L Triglycerides Level 115 mg/dl (0-150) Cholesterol Level 160 mg/dl (0-200) HDL Cholesterol 45 mg/dl LDL Cholesterol, Calculated 92 mg/dl VLDL Cholesterol, Calculated 23 mg/dl Cholesterol/HDL Ratio 3.6 Procalcitonin 0.10 ng/ml (0-0.5) Thyroid Stimulating Hormone (TSH) 0.747 uIu/ml (0.300-4.500) Test 08/06/16 21:45 08/07/16 02:05 08/07/16 07:28 08/07/16 08:24 Urine Color YELLOW Urine Appearance CLEAR (CLEAR) Urine pH 6.0 (4.5-7.5) Urine Specific Artie 1.023 (1.000-1.030) Urine Protein NEG (NEG) Urine Glucose (UA) 2+ (NEG) Urine Ketones NEG (NEG) Urine Occult Blood NEG (NEG) Urine Nitrite NEG (NEG) Urine Bilirubin NEG (NEG) Urine Urobilinogen NEG (NEG) Urine Leukocyte Esterase NEG (NEG) Urine WBC (Auto) 1-5 /hpf (0-5) Urine RBC (Auto) 0-4 /hpf (0-4) Urine Hyaline Casts (Auto) 1-5 /lpf (0-5) Urine Epithelial Cells (Auto) 10-20 /lpf (0-5) Urine Bacteria (Auto) NEG (NEG) White Blood Count 6.69 K/uL (4.8-10.8) Red Blood Count 4.21 M/uL (4.7-6.1) Hemoglobin 11.0 g/dL (14.0-18.0) Hematocrit 35.4 % (42-52) Mean Corpuscular Volume 84.1 fL (80-100) Mean Corpuscular Hemoglobin 26.1 pg (25-34) Mean Corpuscular Hemoglobin Concent 31.1 g/dl (32-36) Platelet Count 246 K/uL (130-400) Mean Platelet Volume 9.5 fL (7.4-10.4) Neutrophils (%) (Auto) 74.6 % Lymphocytes (%) (Auto) 13.5 % Monocytes (%) (Auto) 10.2 % Eosinophils (%) (Auto) 1.3 % Basophils (%) (Auto) 0.1 % Neutrophils # (Auto) 4.99 K/uL (1.4-6.5) Lymphocytes # (Auto) 0.90 K/uL (1.2-3.4) Monocytes # (Auto) 0.68 K/uL (0.11-0.59) Eosinophils # (Auto) 0.09 K/uL (0-0.5) Basophils # (Auto) 0.01 K/uL (0-0.2) RDW Standard Deviation 50.4 fL (36.4-46.3) RDW Coefficient of Variation 16.6 % (11.5-14.5) Immature Granulocyte % (Auto) 0.3 % Immature Granulocyte # (Auto) 0.02 K/uL (0.00-0.02) Anion Gap 7.0 mmol/L (3-11) Est Creatinine Clear Calc Drug Dose 182.4 ml/min Estimated GFR () 118.2 Estimated GFR (Non- 102.0 BUN/Creatinine Ratio 22.4 (10-20) Estimated Average Glucose 166 mg/dl Hemoglobin A1c 7.4 % (4.5-5.6) Lactic Acid Level 1.2 mmol/L (0.4-2.0) Calcium Level 7.8 mg/dl (8.5-10.1) Phosphorus Level 3.9 mg/dl (2.5-4.9) Magnesium Level 2.1 mg/dl (1.8-2.4) Total Bilirubin 0.4 mg/dl (0.2-1) Aspartate Amino Transf (AST/SGOT) 13 U/L (15-37) Alanine Aminotransferase (ALT/SGPT) 22 U/L (12-78) Alkaline Phosphatase 51 U/L (45-117) Total Protein 6.6 gm/dl (6.4-8.2) Albumin 3.2 gm/dl (3.4-5.0) Globulin 3.4 gm/dl (2.5-4.0) Albumin/Globulin Ratio 0.9 (0.9-2) Hepatitis C Antibody Screen NEG (NEG) Bedside Glucose 118 mg/dl (70-99) Creatine Kinase MB Ratio (0-3.0) Test 08/07/16 08:30 Creatine Kinase MB 1.2 ng/ml (0.5-3.6) Troponin I 0.031 ng/ml (0-0.045) Impression 1. Parkinson's disease Mixed tremor with predominant resting and also action components. This is coupled with bradykinesia and some cogwheel rigidity left greater than right side. A significant percentage of Parkinson's patients can have a mixed tremor. Patient has a deep brain stimulator which did help but now he is progressing despite the stimulator and a recent increase in voltage March 2016. 2. Leg weakness. This is a making it difficult for him to stand from a seated position and is likely a combination of his size, deconditioning, and his Parkinson's disease. He has some cardiac issues and possible congestive heart failure which could contribute to his general feelings of weakness and fatigue. 3. Depression This is secondary to his physical condition and is mild. He is already making some improvement with low-dose fluoxetine after one week. 4. Sleep apnea He uses C Pap at night 5. Slowed speech. This is a direct result of his deep brain stimulation procedure. 6. Significant osteoarthritis This gives him chronic spine pain and has resulted in hip and knee replacements bilaterally. Plan 1. Initiate Sinemet 25/100, 1 tablet by mouth 3 times daily This can be titrated as an outpatient. 2. Physical and occupational therapy consults. Consider rehabilitation hospital stay for conditioning and strengthening 3. As an outpatient he will have to have his deep brain stimulator checked and voltage adjusted as necessary. 4. There is no neurologic reason for aspirin daily. I have no problem with an 81 mg aspirin tablet daily however. 5. Restart the fluoxetine and he was on as an outpatient at 20 mg daily. 6. Make sure he gets his C Pap device at night I spoke with Dr. Duran regarding this case including differential diagnosis and treatment options.
--- NOTE | 2016-08-07 11:00 | ECHOCARDIOGRAM REPORT ---
*NOTICE TO RECEIVING CONSTITUTION PARTY AGENCY This information is strictly Confidential and protected under [place] law. [place] law prohibits you from making any further disclosure of this information unless further disclosure is expressly permitted by the written consent of the person to whom it pertains or is authorized by law. A general authorization for the release of medical or other information is not sufficient for this purpose. Hospital accepts no responsibility if the information is made available to any other person, INCLUDING THE PATIENT. Interpretation Summary * Name: JUAN ABDULLAHI Study Date: 08/07/2016 06:59 AM BP: 159/84 mmHg * Patient Location: C.2E\S\E205\S\1 HR: 74 * : 1955 (M/d/yyyy) Gender: Male Height: 72 in * Age: 61 yrs Ethnicity: CA Weight: 396 lb * Ordering Physician: Artemio Marvin * Referring Physician: Self, Referred * Performed By: Dimple Connolly RDCS * * Reason For Study: PULMONARY HTN * BSA: 2.8 m2 * -- Conclusions -- * Image quality was sub-optimal and will affect interpretation. * The left ventricle is mildly dilated. * There is moderate concentric left ventricular hypertrophy. * Left ventricular systolic function is normal. * Grade I diastolic dysfunction, (abnormal relaxation pattern). * Pulmonary pressures could not be measured due to the lack of significant tricuspid regurgitation. * Compared to a study from 2015, there is no appreciable difference Procedure Details * A contrast injection of Definity was performed to improve assessment of LV function. * Contrast was injected into an intravenous site in the left arm. * One vial of Definity ultrasound contrast was diluted in normal saline to a total volume of 10 ml. A total of '2' ml of solution was administered during imaging. * Lot # [id number] of Definity utilized for procedure. * Expiration date SEP 03. * The attending nurse who injected the contrast agent was SWAPNIL ASTORGA. * The study was technically difficult. * Image quality was sub-optimal and will affect interpretation. Left Ventricle * The left ventricle is mildly dilated. * There is moderate concentric left ventricular hypertrophy. * Ejection Fraction = 55-60%. * Left ventricular systolic function is normal. * Grade I diastolic dysfunction, (abnormal relaxation pattern). * The left ventricular wall motion is normal. Right Ventricle * The right ventricle is not well visualized. * Grossly normal function with limited visualization Atria * The left atrium is not well visualized. * Right atrium not well visualized. Mitral Valve * The mitral valve is not well visualized. * Significant mitral regurgitation is absent. Tricuspid Valve * The tricuspid valve is not well visualized. * No tricuspid regurgitation. Aortic Valve * The aortic valve is not well visualized. * No hemodynamically significant valvular aortic stenosis. * There is no significant aortic regurgitation. Pericardium/Pleural * There is no pericardial effusion. MMode 2D Measurements and Calculations IVSd 1.4 cm IVSs 1.8 cm LVIDd 6.4 cm LVIDs 4.6 cm LVPWd 1.5 cm LVPWs 2.1 cm IVS/LVPW 0.95 FS 28.5 % EDV(Teich) 206.9 ml ESV(Teich) 95.6 ml EF(Teich) 53.8 % EDV(cubed) 259.5 ml ESV(cubed) 95.1 ml EF(cubed) 63.4 % % IVS thick 27.1 % % LVPW thick 36.5 % LV mass(C)d 462.7 grams LV mass(C)dI 162.5 grams/m\S\2 LV mass(C)s 427.4 grams LV mass(C)sI 150.1 grams/m\S\2 SV(Teich) 111.4 ml SI(Teich) 39.1 ml/m\S\2 SV(cubed) 164.5 ml SI(cubed) 57.8 ml/m\S\2 LVAd ap4 45.6 cm\S\2 LVLd ap4 10.2 cm EDV(MOD-sp4) 166.0 ml EDV(sp4-el) 173.9 ml LVAs ap4 27.3 cm\S\2 LVLs ap4 8.7 cm ESV(MOD-sp4) 74.0 ml ESV(sp4-el) 72.4 ml EF(MOD-sp4) 55.4 % EF(sp4-el) 58.3 % LVAd ap2 39.3 cm\S\2 LVLd ap2 9.7 cm EDV(MOD-sp2) 128.5 ml EDV(sp2-el) 134.9 ml LVAs ap2 23.9 cm\S\2 LVLs ap2 8.2 cm ESV(MOD-sp2) 58.8 ml ESV(sp2-el) 59.4 ml EF(MOD-sp2) 54.3 % EF(sp2-el) 56.0 % LVLd %diff -4.61 % EDV(MOD-bp) 148.6 ml LVLs %diff -6.38 % ESV(MOD-bp) 63.5 ml EF(MOD-bp) 57.2 % SV(MOD-sp4) 92.0 ml SI(MOD-sp4) 32.3 ml/m\S\2 SV(MOD-sp2) 69.7 ml SI(MOD-sp2) 24.5 ml/m\S\2 SV(MOD-bp) 85.0 ml SI(MOD-bp) 29.9 ml/m\S\2 SV(sp4-el) 101.4 ml SI(sp4-el) 35.6 ml/m\S\2 SV(sp2-el) 75.5 ml SI(sp2-el) 26.5 ml/m\S\2 Doppler Measurements and Calculations MV E max therese 66.0 cm/sec MV A max therese 74.2 cm/sec MV E/A 0.89 MV dec time 0.17 sec Ao V2 max 106.9 cm/sec Ao max PG 4.6 mmHg Ao max PG (full) 2.5 mmHg LV V1 max PG 2.1 mmHg LV V1 max 72.3 cm/sec
[2016-08-07] MEDS: ALBUT/IPRATROP 3MG/0.5MG NEB 3 ML VIAL INH SCH ×3 (11:16→19:12)
[2016-08-07] MEDS ORDERED: GLUCOSE 40% GEL 15 GM TUBE PO PRN (11:30)
[2016-08-07] MEDS ORDERED: GLUCOSE 10 TABS/TUBE PO PRN (11:30)
[2016-08-07] MEDS ORDERED: DEXTROSE 50% 50 ML SYR IV PRN (11:30)
[2016-08-07] MEDS ORDERED: GLUCAGON FOR INJ 1 MG VIAL SQ PRN (11:30)
--- NOTE | 2016-08-07 11:40 | DIAGNOSTIC IMAGING REPORT ---
CT ANGIOGRAM OF THE CHEST CLINICAL HISTORY: Dyspnea. COMPARISON STUDY: Chest CT dated 11/15/2014. Chest x-ray dated 08/06/2016. TECHNIQUE: Following the IV administration of 119 cc of Optiray 320, CT angiogram of the chest was performed from the upper abdomen to the thoracic inlet utilizing the pulmonary embolus protocol. Images are reviewed in the axial, sagittal, and coronal planes. 3-D MIPS images are created and assessed. IV contrast was administered without complication. The examination is significantly degraded by large body habitus and by streak artifact from the patient's body wall abutting the CT gantry. The examination is also significantly degraded by motion artifact. CT DOSE: 724.20 mGy.cm FINDINGS: Thyroid: Imaged portions of the thyroid gland are normal in size and attenuation. Thoracic aorta: The thoracic aorta is normal in caliber and the arch demonstrates standard 3-vessel anatomy. No dissection is seen. Pulmonary vasculature: The main pulmonary arteries are dilated suggesting pulmonary artery hypertension. There are no filling defects identified in main, lobar, or proximal segmental pulmonary branches to suggest pulmonary embolus. Evaluation of the peripheral vessels is significantly degraded by motion artifact. Heart: The heart is enlarged and there is a small pericardial effusion. Lungs and pleural spaces: Evaluation of the lung parenchyma is significantly degraded by motion artifact. There is a trace left pleural effusion. There is no airspace consolidation typical for pneumonia. Small nodules are identified in the left upper lobe on image #206 and in the right upper lobe on image #187. These measure up to 10 mm and are unchanged from 11/15/2014. A 9 mm right middle lobe nodule is seen on image #111. A 10 mm pleural-based nodule is seen at the right lung base image #89. These were also likely present previously but are difficult to visualize due to artifact. Mediastinum: There is mediastinal lymphadenopathy. An AP window node on image #150 measures up to 1.9 cm in short axis. Paratracheal nodes measure up to 1.5 cm in short axis. Kalyani: There are numerous mildly enlarged bilateral hilar lymph nodes. These measure up to 2.2 cm in short axis. Axillae: There is no axillary lymphadenopathy. Upper abdomen: There is a small hiatal hernia. Hepatic steatosis is observed. Soft tissues: Gynecomastia is noted. Electronic devices are present within the upper chest wall. Skeletal structures: The skeletal structures appear osteopenic. No lytic or blastic bony lesions are seen. Moderate degenerative changes are present throughout the thoracic spine. IMPRESSION: 1. Motion and streak artifact degraded examination. 2. There is no evidence of pulmonary embolus in the main, lobar, or proximal segmental pulmonary arteries. 3. Cardiomegaly and small pericardial effusion. 4. Nonspecific mediastinal and hilar lymphadenopathy. This was also seen on 11/15/2014. Pulmonology follow-up is recommended. 5. Evaluation of the lung parenchyma is significantly degraded by motion. There is no airspace consolidation typical for pneumonia. A trace left pleural effusion is noted. 6. Numerous pulmonary and pleural-based nodules are identified and measure up to 10 mm. These were also seen on 11/15/2014 and are pathologically indeterminant but of low suspicion. 7. Hepatic steatosis and small hiatal hernia. 8. Additional changes as above. Electronically signed by: Aryan Ayers M.D. 08/07/2016 11:38 AM Dictated Date/Time: 08/07/2016 11:28 AM
[2016-08-07] MEDS ORDERED: FUROSEMIDE INJ 60 MG in SYRINGE 0 ML IV SCH (13:30)
[2016-08-07] MEDS: CARBIDOPA/LEVODOPA 25/100MG TAB PO SCH ×2 (14:05→19:47)
[2016-08-07] MEDS: INSULIN ASPART 100 UNITS/ML 3 ML PEN SC SCH ×2 (16:48→20:10)
[2016-08-07] MEDS: SODIUM CHLORIDE 0.9% 1000ML 1,000 ML IV SCH (19:45)
[2016-08-08] VITALS (12 sets, daily range): BP systolic 132–166; BP diastolic 72–89; PULSE 72–114; TEMP 36.4–36.9; O2SAT 93–96
[2016-08-08] MEDS: HEPARIN SOD 5000 UNIT/0.5 ML CARP SQ SCH ×3 (05:52→21:23)
[2016-08-08] MEDS: ACETAMINOPHEN 500 MG TAB PO SCH ×3 (05:52→21:16)
[2016-08-08 06:55] LABS: BUN/CREATININE RATIO 24.6 (10-20); CALCIUM 8.4 mg/dl (8.5-10.1); CREATININE 0.68 mg/dl (0.60-1.40); POTASSIUM 3.8 mmol/L (3.5-5.1)
[2016-08-08] MEDS: ALBUT/IPRATROP 3MG/0.5MG NEB 3 ML VIAL INH SCH ×4 (07:07→19:39)
--- NOTE | 2016-08-08 07:20 | Hospitalist Progress Note ---
Hospitalist Progress Note Date of Service Aug 08, 2016. (Guera Freeman PA-C) Subjective Pt evaluation today including: conversation w/ patient, physical exam, chart review, lab review, review of studies Pain: None PO Intake: Good Voiding: no voiding problems The patient was seen and examined this morning. Pt reports he feels a little better overall this morning. Yesterday when he got given lasix IV he states "I felt it in my kidneys, and now its finally starting to feel normal". He had large volume of urine outs yesterday, he denies difficulty with urination and needs to use the restroom multiple times daily. He has been ambulating from bed to chair without difficulty and is using the walker during our visit. He notes the swelling in his legs is much improved. Also his cough and wheezing is much better. He had a BM last night. Pt denies any other acute complaints. Constitutional: No fever, No chills, No sweats Eyes: No redness, No diplopia ENT: No sore throat, No trouble swallowing Respiratory: No shortness of breath, No dyspnea at rest Cardiovascular: No chest pain, No palpitations Abdomen: No pain, No nausea, No vomiting, No diarrhea, No constipation Musculoskeletal: No joint pain, No muscle pain, No swelling Male : No dysuria Neurologic: No weakness, No numbness/tingling Endo: No fatigue Skin: No rash, No itch (Guera Freeman PA-C) Objective Vital Signs Date Time Temp Pulse Resp B/P (MAP) Pulse Ox O2 Delivery O2 Flow Rate FiO2 08/08/16 07:09 88 16 95 Room Air 08/08/16 04:00 Room Air 08/08/16 03:53 36.6 72 18 139/72 (94) 95 Room Air 08/08/16 00:00 Room Air 08/07/16 23:50 36.6 76 20 136/73 (94) 94 Room Air 08/07/16 20:00 Room Air 08/07/16 20:00 95 08/07/16 19:18 36.9 92 20 145/81 (102) 99 Room Air 08/07/16 19:13 92 16 93 Room Air 08/07/16 16:04 92 16 95 Room Air 08/07/16 16:00 95 Room Air 08/07/16 15:10 36.6 89 24 161/93 (115) 95 Room Air 08/07/16 15:10 36.6 89 24 161/93 (115) 95 Room Air 08/07/16 14:02 162/87 (112) 08/07/16 14:00 85 158/82 (107) 08/07/16 12:00 Room Air 08/07/16 08:00 96 Room Air (Guera Freeman PA-C) Physical Exam Notes: General Appearance: WD/WN, no apparent distress, + obese (morbidly), + pertinent finding (slow speech) Eyes: PERRL, EOMI ENT: hearing grossly normal, pharynx normal Neck: supple, no JVD Respiratory/Chest: no respiratory distress, no accessory muscle use, + pertinent finding (On room air, no cough, breath sounds are clear throughout and much improved, no adventitious breath sounds including wheezing rhales or rhonchi. Cardiovascular: regular rate, rhythm, no JVD, no murmur Abdomen: normal bowel sounds, non tender, soft, no organomegaly Extremities: no calf tenderness, + pedal edema (1+ pitting in BLE, improved) Neurologic/Psychiatric: alert, oriented x 3, + pertinent finding (speech is slowed. + Mild tremor in RUE ) Skin: normal color, warm/dry (Guera Freeman, TRUNG-C) Laboratory Results Last 24 Hours Test 08/07/16 07:28 08/07/16 08:24 08/07/16 08:30 08/07/16 14:15 Bedside Glucose 118 mg/dl Creatine Kinase MB Ratio Creatine Kinase MB 1.2 ng/ml 1.5 ng/ml Troponin I 0.031 ng/ml 0.023 ng/ml Test 08/07/16 16:17 08/07/16 20:00 08/07/16 20:24 08/07/16 20:52 Bedside Glucose 157 mg/dl 147 mg/dl Creatine Kinase MB Ratio Creatine Kinase MB 1.2 ng/ml Troponin I < 0.015 ng/ml Test 08/08/16 05:47 Sodium Level 138 mmol/L Potassium Level 3.8 mmol/L Chloride Level 102 mmol/L Carbon Dioxide Level 30 mmol/L Anion Gap 6.0 mmol/L Blood Urea Nitrogen 17 mg/dl Creatinine 0.68 mg/dl Est Creatinine Clear Calc Drug Dose 194.0 ml/min Estimated GFR () 120.3 Estimated GFR (Non- 103.8 BUN/Creatinine Ratio 24.6 Random Glucose 117 mg/dl Calcium Level 8.4 mg/dl (Guera Freeman, DEVON) Assessment and Plan 61 yo M with PMHx of hz of tremors with implant neuro stimulator, HTN, HLD, morbid obesity who sustained a fall yesterday and was unable to get up due to bilateral lower extremity weakness, sob on minimal exertion and increased leg swelling. Weakness and SOB with exertion and increased leg swelling - Neurology consulted, pt follows with Dr. Virk as an outpatient. Appreciate Dr. Reyes's imput. Sinemet 25/100 TID ordered as well as fluoxetine 20 mg daily. Diastolic CHF, mild - Troponins were mildly elevated 0.048-->0.059-->0.049. - CTA negative for PE - EKG was obtained however neuro stimulator inhibits accurate read. Currently the pts neurostimulator is off and this is likely why his tremor is much more apparent this morning. Will await EKG read for results - Echo was obtained- showing grade 1 diastolic dysfunction and dilated pulmonary vasculature indicating pulmonary hypertension -- Conclusions -- * Image quality was sub-optimal and will affect interpretation. * The left ventricle is mildly dilated. * There is moderate concentric left ventricular hypertrophy. * Left ventricular systolic function is normal. * Grade I diastolic dysfunction, (abnormal relaxation pattern). * Pulmonary pressures could not be measured due to the lack of significant tricuspid regurgitation. * Compared to a study from 2015, there is no appreciable difference - Breath sounds are much improved today with diuresis yesterday, outs were > 4175 mL yesterday, will give another dose of IV lasix 60 mg this morning. - Follow BCx - PT/OT consulted Parkinsonism with mild Tremor - s/p neuro-stimulator and generator [place] [address] Calderón at [facility], office #: [phone] - Appreciate neuro recs - Continue Sinemet 25/100 TID HTN - Pt was in hypertensive urgency when arrived with SBBp > 200s. - Will hold atenolol 100 QAm for now and change to Toprol-XL, increased to 50 mg QAM today and continue Lisinopril 5 mg QAM. BP seems to be much improved on this regimen. Will continue this at time of discharge as well. - Echo as above. - Lipids are WNL: HDL is 45 and LDL is 92. DM II - Hgb A1C= 7.4 - A1C has been fine for years per pt report. He was previously on an oral agent, although was taken off bc his numbers were ok. He cannot recall this medication or when it was stopped. Pt not on any regimen as an outpatient currently, nor does he check blood glucose regularly. May need to initiate metformin as an outpatient or start him on insulin. - ISS with accuchecks ordered - hand shaker has visited the patient - appreciate. He will need Rx for lancets and testing strips at time of discharge Morbid Obesity - BMI=54. - Pt has gained 25 lbs in the past 6 months, discussion regarding diet was held. He is agreeable to being more careful with his diet,- appreciate court crier ARCHIE - Pt wears CPAP at home at baseline- ordered yesterday although was not set up per respiratory- I discussed with nursing, they will call to have it set up since pt could not get his home unit yesterday. - Speech slow at baseline with neurostimulator on, by pt reports this is his baseline, if speech or neurological status worsens will check ABG. - Noc ox completed last night which he failed DVT ppx: Teds, SCDS, heparin Q8H CODE STATUS: FULL code Disposition: From home, lives alone,move out of tele today, likely d/c in 1 day (Guera Freeman, DEVON) Attending Attestation & Admission Note: Pt seen/examined, chart reviewed, and care plan d/w TRUNG Freeman. I agree w/ the burch components of her documentation. Pt feels much better today. Breathing is improved. Tele stable overnight. Vitals - elevated BPs continues, O2 sats nl in RA gen - nad, obese neck - unable to assess for JVD due to body habitus heart - RRR, s1, s2 lungs - wheezing essentially resolved today; decreased BS bases abd - soft, NT, obese, BS+ ext - edema 1-2+ b/l, stasis changes, pulses 2+ b/l neuro - mild tremors BMP nl A/P: 1. acute/chronic diastolic CHF - lasix 60mg IV this AM again; cont salt/fluid restriction; re-eval in am 2. morbid obesity - BMI 54 3. probable pulmonary HTN based on CTA findings - will need to be assessed for home O2 at d/c 4. mediastinal and hilar lymphadenopathy - chronic - etiology?? sarcoid? other? 5. parkinson's disease with deep brain stimulator - sinemet added 6. T2DM - controlled; metformin at d/c? 7. HTN - uncontrolled; increase BB 8. ambulatory dysfunction - PT, OT consults 9. recent fall Theresa DURAN MD (Sky Duran MD)
[2016-08-08] MEDS: INSULIN ASPART 100 UNITS/ML 3 ML PEN SC SCH ×4 (07:46→21:00)
[2016-08-08] MEDS: ASPIRIN 325 MG ECTAB PO SCH (08:59)
[2016-08-08] MEDS: LISINOPRIL 5 MG TAB PO SCH (08:59)
[2016-08-08] MEDS: CARBIDOPA/LEVODOPA 25/100MG TAB PO SCH ×3 (08:59→21:16)
[2016-08-08] MEDS: FLUOXETINE HCL 20 MG CAP PO SCH (08:59)
[2016-08-08] MEDS ORDERED: FUROSEMIDE INJ 60 MG in SYRINGE 0 ML IV ONE (09:30)
--- NOTE | 2016-08-08 09:52 | Neurology Progress Notes ---
Neurology Progress Note Date of Service Aug 08, 2016. Subjective Patient has no complaint of pain or headache. He is not dizzy and has no new weakness or numbness. He is thinking well and is not confused. Patient feels that he may be slightly better on the Sinemet today compared to yesterday. His stimulator was turned off to do an EKG and his tremors were remarkably worse. Back on, his tremors are dampened considerably. Glucose was 116 this morning. Echocardiogram reveals moderate LVH but no change from 2015 Objective Date Time Temp Pulse Resp B/P (MAP) Pulse Ox O2 Delivery O2 Flow Rate FiO2 08/08/16 08:18 36.8 114 20 155/76 (102) 94 08/08/16 07:09 88 16 95 Room Air 08/08/16 04:00 Room Air 08/08/16 03:53 36.6 72 18 139/72 (94) 95 Room Air 08/08/16 00:00 Room Air 08/07/16 23:50 36.6 76 20 136/73 (94) 94 Room Air 08/07/16 20:00 Room Air 08/07/16 20:00 95 08/07/16 19:18 36.9 92 20 145/81 (102) 99 Room Air 08/07/16 19:13 92 16 93 Room Air 08/07/16 16:04 92 16 95 Room Air 08/07/16 16:00 95 Room Air 08/07/16 15:10 36.6 89 24 161/93 (115) 95 Room Air 08/07/16 15:10 36.6 89 24 161/93 (115) 95 Room Air 08/07/16 14:02 162/87 (112) 08/07/16 14:00 85 158/82 (107) 08/07/16 12:00 Room Air Last 24 Hours Test 08/07/16 14:15 08/07/16 16:17 08/07/16 20:00 08/07/16 20:24 Creatine Kinase MB 1.5 ng/ml Creatine Kinase MB Ratio Troponin I 0.023 ng/ml Bedside Glucose 157 mg/dl 147 mg/dl Test 08/07/16 20:52 08/08/16 05:47 08/08/16 06:37 Creatine Kinase MB 1.2 ng/ml Troponin I < 0.015 ng/ml Sodium Level 138 mmol/L Potassium Level 3.8 mmol/L Chloride Level 102 mmol/L Carbon Dioxide Level 30 mmol/L Anion Gap 6.0 mmol/L Blood Urea Nitrogen 17 mg/dl Creatinine 0.68 mg/dl Est Creatinine Clear Calc Drug Dose 194.0 ml/min Estimated GFR () 120.3 Estimated GFR (Non- 103.8 BUN/Creatinine Ratio 24.6 Random Glucose 117 mg/dl Calcium Level 8.4 mg/dl Bedside Glucose 116 mg/dl Exam: He is awake and alert. Speech is slow as per yesterday. He comprehends well and follows commands well. Mood and affect are normal Extraocular eye muscles are intact without nystagmus. He has [id number] bradykinesia in general and a masklike face. He has some mild cogwheel rigidity bilaterally and some resting tremor of the hands bilaterally. He has some action tremor of a mild nature bilaterally but is good strength in all 4 limbs. There is no ataxia with [id number] testing. Current Inpatient Medications Medications (Trade) Dose Ordered Sig/Parris Route Start Time Stop Time Status Last Admin Dose Admin Heparin Sodium (Porcine) (Heparin Sq 5000 Unit/0.5ml) 5,000 unit Q8 SQ 08/06/16 22:00 09/05/16 21:59 08/07/16 20:38 5,000 UNIT Sodium Chloride 1,000 ml @ 15 mls/hr Q24H IV 08/06/16 22:00 09/05/16 21:59 08/06/16 23:35 15 MLS/HR Aspirin (Ecotrin Tab) 325 mg QAM PO 08/06/16 22:00 09/05/16 21:59 08/08/16 08:59 325 MG Polyethylene (Miralax Powder Packet) 17 gm DAILY PRN PO 08/06/16 20:30 09/05/16 20:29 Acetaminophen (Tylenol Tab) 1,000 mg Q8 PO 08/07/16 06:00 09/06/16 05:59 08/07/16 19:47 1,000 MG Metoprolol Tartrate (Lopressor Iv) 5 mg Q4H PRN IV 08/06/16 23:00 09/05/16 22:59 Lisinopril (Zestril Tab) 5 mg QAM PO 08/07/16 09:00 09/06/16 08:59 08/08/16 08:59 5 MG Albuterol/ Ipratropium (Duoneb) 3 ml QIDR INH 08/07/16 12:00 09/06/16 11:59 08/08/16 07:07 3 ML Ioversol (Optiray 320) 100 ml UD PRN IV 08/07/16 09:30 08/11/16 09:29 Insulin Aspart (novoLOG ASPART) SLIDING SCALE If C... ACHS SC 08/07/16 16:15 09/06/16 16:14 08/08/16 07:46 5 UNITS Glucose (Glucose 40% Gel) 15-30 GRAMS 15 GRAMS... UD PRN PO 08/07/16 11:30 09/06/16 11:29 Glucose (Glucose Chew Tab) 4-8 Tablets 4 Tabl... UD PRN PO 08/07/16 11:30 09/06/16 11:29 Dextrose (Dextrose 50% 50ML Syringe) 25-50ML OF 50% DW IV FOR... UD PRN IV 08/07/16 11:30 09/06/16 11:29 Glucagon (Glucagon Inj) 1 mg UD PRN SQ 08/07/16 11:30 09/06/16 11:29 Carbidopa/Levodopa (Sinemet 25/ 100MG Tab) 1 tab TID PO 08/07/16 14:00 09/06/16 13:59 08/08/16 08:59 1 TAB Fluoxetine HCl (Prozac Cap) 20 mg QAM PO 08/08/16 09:00 09/07/16 08:59 08/08/16 08:59 20 MG Metoprolol Succinate (Toprol Xl Tab) 50 mg QAM PO 08/08/16 09:00 09/06/16 08:59 Impression 1. Parkinson's disease Mixed tremor with predominant resting and also action components. This is coupled with bradykinesia and some cogwheel rigidity left greater than right side. A significant percentage of Parkinson's patients can have a mixed tremor. Patient has a deep brain stimulator which did help but now he is progressing despite the stimulator and a recent increase in voltage March 2016. He is now one day on low-dose carbidopa/levodopa 25/100mg tid and no side effects 2. Leg weakness. This is a making it difficult for him to stand from a seated position and is likely a combination of his size, deconditioning, and his Parkinson's disease. He has some cardiac issues and possible congestive heart failure which could contribute to his general feelings of weakness and fatigue. 3. Depression This is secondary to his physical condition and is mild. He is already making some improvement with low-dose fluoxetine after one week. 4. Sleep apnea He uses C Pap at night 5. Slowed speech. This is a direct result of his deep brain stimulation procedure. 6. Significant osteoarthritis This gives him chronic spine pain and has resulted in hip and knee replacements bilaterally. Plan 1. Continue Sinemet 25/100, 1 tablet by mouth 3 times daily This can be titrated as an outpatient, in 3-4 weeks. 2. Physical and occupational therapy consults. I recommend rehabilitation hospital stay for conditioning and strengthening - COnsider consult Dr. Perez as well 3. As an outpatient he will have to have his deep brain stimulator checked and voltage adjusted as necessary. 4. There is no neurologic reason for aspirin daily. I have no problem with an 81 mg aspirin tablet daily however. 5. Continue fluoxetine 20 mg daily. 6. Make sure he gets his C Pap device at night
[2016-08-08] MEDS: METOPROLOL SUCC 25MG EXT REL TAB PO SCH (10:17)
[2016-08-09] VITALS (11 sets, daily range): BP systolic 121–168; BP diastolic 55–98; PULSE 76–105; TEMP 36.3–36.7; O2SAT 92–97
[2016-08-09] MEDS: SODIUM CHLORIDE 0.9% 1000ML 1,000 ML IV SCH (00:58)
[2016-08-09] MEDS: ACETAMINOPHEN 500 MG TAB PO SCH ×3 (05:52→21:28)
[2016-08-09] MEDS: HEPARIN SOD 5000 UNIT/0.5 ML CARP SQ SCH ×3 (05:59→21:29)
[2016-08-09 06:29] LABS: BUN/CREATININE RATIO 20.1 (10-20); CALCIUM 8.8 mg/dl (8.5-10.1); CREATININE 0.91 mg/dl (0.60-1.40); MAGNESIUM 2.5 mg/dl (1.8-2.4); POTASSIUM 4.3 mmol/L (3.5-5.1)
[2016-08-09] MEDS: ALBUT/IPRATROP 3MG/0.5MG NEB 3 ML VIAL INH SCH ×4 (07:35→19:04)
[2016-08-09] MEDS: INSULIN ASPART 100 UNITS/ML 3 ML PEN SC SCH ×4 (07:51→20:10)
--- NOTE | 2016-08-09 08:02 | Neurology Progress Notes ---
Neurology Progress Note Date of Service Aug 09, 2016. Subjective Patient is doing very well. He feels there is some improvement on the Sinemet. Unfortunately, he feels that wears off after 4 hours. He has no side effects to the medication is not having confusion or hallucinations. He does not have pain. His tremor is about the same. Nursing reports no new events overnight. Glucose this morning was 125. Blood pressure remains elevated at 160/96 Objective Date Time Temp Pulse Resp B/P (MAP) Pulse Ox O2 Delivery O2 Flow Rate FiO2 08/09/16 07:36 80 20 94 Room Air 08/09/16 07:16 36.7 83 21 160/96 (117) 93 Room Air 08/09/16 04:00 Room Air 08/09/16 03:27 36.3 76 21 168/98 (121) 96 CPAP 08/08/16 23:59 Room Air 08/08/16 23:35 36.4 89 22 132/72 (92) 95 Room Air 08/08/16 22:04 82 96 21 08/08/16 20:03 36.8 93 20 148/76 (100) 94 Room Air 08/08/16 20:00 Room Air 08/08/16 19:39 90 20 95 Room Air 08/08/16 16:00 94 Room Air 08/08/16 15:33 36.6 84 24 138/82 (100) 93 Room Air 08/08/16 15:23 88 20 95 Room Air 08/08/16 11:51 36.9 89 18 166/89 (114) 95 08/08/16 08:18 36.8 114 20 155/76 (102) 94 08/08/16 08:00 94 Room Air Last 24 Hours Test 08/08/16 11:25 08/08/16 16:09 08/08/16 20:34 08/09/16 05:28 Bedside Glucose 129 mg/dl 123 mg/dl 112 mg/dl Sodium Level 137 mmol/L Potassium Level 4.3 mmol/L Chloride Level 100 mmol/L Carbon Dioxide Level 31 mmol/L Anion Gap 6.0 mmol/L Blood Urea Nitrogen 18 mg/dl Creatinine 0.91 mg/dl Est Creatinine Clear Calc Drug Dose 145.0 ml/min Estimated GFR () 105.8 Estimated GFR (Non- 91.3 BUN/Creatinine Ratio 20.1 Random Glucose 128 mg/dl Calcium Level 8.8 mg/dl Magnesium Level 2.5 mg/dl Test 08/09/16 07:02 Bedside Glucose 133 mg/dl Exam: He is awake and alert. Speech is slow but without dysarthria or aphasia. He is relatively soft with his speech. Patient has no facial droop and extraocular eye muscles are intact without nystagmus. There is a mild to moderate masked face and bradykinesia present. There is mild rigidity in the arms and there is mild resting tremor. Strength is symmetrical in the limbs. Current Inpatient Medications Medications (Trade) Dose Ordered Sig/Parris Route Start Time Stop Time Status Last Admin Dose Admin Heparin Sodium (Porcine) (Heparin Sq 5000 Unit/0.5ml) 5,000 unit Q8 SQ 08/06/16 22:00 09/05/16 21:59 08/09/16 05:59 5,000 UNIT Sodium Chloride 1,000 ml @ 15 mls/hr Q24H IV 08/06/16 22:00 09/05/16 21:59 08/09/16 00:58 15 MLS/HR Aspirin (Ecotrin Tab) 325 mg QAM PO 08/06/16 22:00 09/05/16 21:59 08/08/16 08:59 325 MG Polyethylene (Miralax Powder Packet) 17 gm DAILY PRN PO 08/06/16 20:30 09/05/16 20:29 Acetaminophen (Tylenol Tab) 1,000 mg Q8 PO 08/07/16 06:00 09/06/16 05:59 08/09/16 05:52 1,000 MG Metoprolol Tartrate (Lopressor Iv) 5 mg Q4H PRN IV 08/06/16 23:00 09/05/16 22:59 Lisinopril (Zestril Tab) 5 mg QAM PO 08/07/16 09:00 09/06/16 08:59 08/08/16 08:59 5 MG Albuterol/ Ipratropium (Duoneb) 3 ml QIDR INH 08/07/16 12:00 09/06/16 11:59 08/09/16 07:35 3 ML Ioversol (Optiray 320) 100 ml UD PRN IV 08/07/16 09:30 08/11/16 09:29 Insulin Aspart (novoLOG ASPART) SLIDING SCALE If C... ACHS SC 08/07/16 16:15 09/06/16 16:14 08/08/16 16:45 4 UNITS Glucose (Glucose 40% Gel) 15-30 GRAMS 15 GRAMS... UD PRN PO 08/07/16 11:30 09/06/16 11:29 Glucose (Glucose Chew Tab) 4-8 Tablets 4 Tabl... UD PRN PO 08/07/16 11:30 09/06/16 11:29 Dextrose (Dextrose 50% 50ML Syringe) 25-50ML OF 50% DW IV FOR... UD PRN IV 08/07/16 11:30 09/06/16 11:29 Glucagon (Glucagon Inj) 1 mg UD PRN SQ 08/07/16 11:30 09/06/16 11:29 Carbidopa/Levodopa (Sinemet 25/ 100MG Tab) 1 tab TID PO 08/07/16 14:00 09/06/16 13:59 08/08/16 21:16 1 TAB Fluoxetine HCl (Prozac Cap) 20 mg QAM PO 08/08/16 09:00 09/07/16 08:59 08/08/16 08:59 20 MG Metoprolol Succinate (Toprol Xl Tab) 50 mg QAM PO 08/08/16 09:00 09/06/16 08:59 08/08/16 10:17 50 MG Impression 1. Parkinson's disease Mixed tremor with predominant resting and also action components. This is coupled with bradykinesia and some cogwheel rigidity left greater than right side. A significant percentage of Parkinson's patients can have a mixed tremor. Patient has a deep brain stimulator which did help but now he is progressing despite the stimulator and a recent increase in voltage March 2016. He is now day two on low-dose carbidopa/levodopa 25/100mg tid with no side effects. Unfortunately, his spacing is too far apart and he is "wearing off" between doses. 2. Leg weakness. This is a making it difficult for him to stand from a seated position and is likely a combination of his size, deconditioning, and his Parkinson's disease. He has some cardiac issues and possible congestive heart failure which could contribute to his general feelings of weakness and fatigue. 3. Depression This is secondary to his physical condition and is mild. He is already making some improvement with low-dose fluoxetine after one week. 4. Sleep apnea He uses C Pap at night 5. Slowed speech. This is a direct result of his deep brain stimulation procedure. 6. Significant osteoarthritis This gives him chronic spine pain and has resulted in hip and knee replacements bilaterally. Plan 1. Increase Sinemet 25/100 to 4 times daily; 0800, 1200, 1600, 2000 hours. Stay at this dose before and after discharge. This can be titrated further as an outpatient - already has an appointment with Dr. Virk in August 2. Continue intensive physical and other rehabilitation. 3. I recommend [facility] stay for conditioning and strengthening - They have an excellent Parkinson's program involving physical, occupational and speech therapy ("[facility]") 3. As an outpatient he will have to have his deep brain stimulator checked and voltage adjusted as necessary. 4. There is no neurologic reason for aspirin daily. I have no problem with an 81 mg aspirin tablet daily however. 5. Continue fluoxetine 20 mg daily. 6. Make sure he gets his C Pap device at night I have no further neurologic testing or treatment recommendations to make at this time. Please contact me if I can be of further assistance on this case. I have spoken to Josy Freeman PA-C regarding this case, including treatment options.
[2016-08-09] MEDS: METOPROLOL SUCC 25MG EXT REL TAB PO SCH (08:43)
[2016-08-09] MEDS: ASPIRIN 325 MG ECTAB PO SCH (08:43)
[2016-08-09] MEDS: CARBIDOPA/LEVODOPA 25/100MG TAB PO SCH ×4 (08:44→19:33)
[2016-08-09] MEDS: FLUOXETINE HCL 20 MG CAP PO SCH (08:44)
[2016-08-09] MEDS: LISINOPRIL 5 MG TAB PO SCH (08:44)
--- NOTE | 2016-08-09 09:41 | Hospitalist Progress Note ---
Hospitalist Progress Note Date of Service Aug 09, 2016. (Guera Freeman PA-C) Subjective Pt evaluation today including: conversation w/ patient, physical exam, chart review, lab review, review of studies Pain: none PO Intake: Good Voiding: no voiding problems The patient was seen and examined this morning. Pt reports doing well overall, he has urinated a large volume of outs. Pt reports he has lost 20 lbs since being here with fluid diuresis. He denies feeling as short of breath with ambulation, he is not coughing much, and feels his breathing is much improved. He denies any chest pain. He reports sinemet is working a little to help control his tremors, he is also agreeable to going to [facility] at time of discharge for aggressive PT/speech rehab until sinemet kicks in a little more as discussed with Dr. Reyes. Additional Comments: ROS: 6 point ROS reviewed and otherwise negative. (Guera Freeman PA-C) Objective Vital Signs Date Time Temp Pulse Resp B/P (MAP) Pulse Ox O2 Delivery O2 Flow Rate FiO2 08/09/16 07:36 80 20 94 Room Air 08/09/16 07:16 36.7 83 21 160/96 (117) 93 Room Air 08/09/16 04:00 Room Air 08/09/16 03:27 36.3 76 21 168/98 (121) 96 CPAP 08/08/16 23:59 Room Air 08/08/16 23:35 36.4 89 22 132/72 (92) 95 Room Air 08/08/16 22:04 82 96 21 08/08/16 20:03 36.8 93 20 148/76 (100) 94 Room Air 08/08/16 20:00 Room Air 08/08/16 19:39 90 20 95 Room Air 08/08/16 16:00 94 Room Air 08/08/16 15:33 36.6 84 24 138/82 (100) 93 Room Air 08/08/16 15:23 88 20 95 Room Air 08/08/16 11:51 36.9 89 18 166/89 (114) 95 (Guera Freeman PA-C) Physical Exam Notes: General Appearance: WD/WN, no apparent distress, + obese (morbidly), + pertinent finding (slow speech) Eyes: PERRL, EOMI ENT: hearing grossly normal, pharynx normal Neck: supple, no JVD Respiratory/Chest: no respiratory distress, no accessory muscle use, + pertinent finding (On room air, no cough, breath sounds are clear throughout and much improved, no adventitious breath sounds including wheezing rhales or rhonchi. Cardiovascular: regular rate, rhythm, no JVD, no murmur Abdomen: normal bowel sounds, non tender, soft, no organomegaly Extremities: no calf tenderness, + pedal edema (still with 1+ pitting in BLE, improved) Neurologic/Psychiatric: alert, oriented x 3, + pertinent finding (speech is slowed. + Mild tremor in RUE ) Skin: normal color, warm/dry (Guera Freeman, DEVON) Laboratory Results Last 24 Hours Test 08/08/16 11:25 08/08/16 16:09 08/08/16 20:34 08/09/16 05:28 Bedside Glucose 129 mg/dl 123 mg/dl 112 mg/dl Sodium Level 137 mmol/L Potassium Level 4.3 mmol/L Chloride Level 100 mmol/L Carbon Dioxide Level 31 mmol/L Anion Gap 6.0 mmol/L Blood Urea Nitrogen 18 mg/dl Creatinine 0.91 mg/dl Est Creatinine Clear Calc Drug Dose 145.0 ml/min Estimated GFR () 105.8 Estimated GFR (Non- 91.3 BUN/Creatinine Ratio 20.1 Random Glucose 128 mg/dl Calcium Level 8.8 mg/dl Magnesium Level 2.5 mg/dl Test 08/09/16 07:02 Bedside Glucose 133 mg/dl (Guera Freeman PA-C) Assessment and Plan 61 yo M with PMHx of hz of tremors with implant neuro stimulator, HTN, HLD, morbid obesity who sustained a fall yesterday and was unable to get up due to bilateral lower extremity weakness, sob on minimal exertion and increased leg swelling. Weakness and SOB with exertion and increased leg swelling - Neurology consulted, appreciate Dr. Reyes's imput. Sinemet 25/100 increased to QID today per Dr. Reyes's recommendations. Outpatient follow up with Dr. Virk scheduled in August. Diastolic CHF, mild, with pulmonary hypertension - Troponins were mildly elevated 0.048-->0.059-->0.049. - CTA negative for PE - EKG was obtained while neurostimulator was turned off and appears in NSR. No signs of ischemia. - Echo was obtained- showing grade 1 diastolic dysfunction and dilated pulmonary vasculature indicating pulmonary hypertension -- Conclusions -- * Image quality was sub-optimal and will affect interpretation. * The left ventricle is mildly dilated. * There is moderate concentric left ventricular hypertrophy. * Left ventricular systolic function is normal. * Grade I diastolic dysfunction, (abnormal relaxation pattern). * Pulmonary pressures could not be measured due to the lack of significant tricuspid regurgitation. * Compared to a study from 2015, there is no appreciable difference - Breath sounds are much improved today with diuresis yesterday, outs were > 4L x 2 days in a row, Cr is stable, will give another dose of IV lasix 60 mg this morning. - Will continue him on metprolol 50 mg BID and lisinopril. - BCx are negative - PT/OT consulted - will try for [facility] for Parkinsonian rehab Parkinsonism with mild Tremor - s/p neuro-stimulator and generator [place] [address] Calderón at [facility], office #: [phone] - Appreciate neuro recs - Continue Sinemet 25/100 QID, increased today. - Outpatient f/u with Dr. Virk in August already set up. HTN - Pt was in hypertensive urgency when arrived with SBBp > 200s. - Will hold atenolol 100 QAm for now and change to Toprol-XL, continue at 50 mg QAM and Lisinopril 5 mg QAM. BP seems to be much improved on this regimen. Will continue this at time of discharge as well. - Echo as above. - Lipids are WNL: HDL is 45 and LDL is 92. DM II - Hgb A1C= 7.4 - A1C has been fine for years per pt report. He was previously on an oral agent, although was taken off bc his numbers were ok. He cannot recall this medication or when it was stopped. Pt not on any regimen as an outpatient currently, nor does he check blood glucose regularly. May need to initiate metformin as an outpatient or start him on insulin. - ISS with accuchecks ordered - breastfeeding educator has visited the patient - appreciate. He will need Rx for lancets and testing strips at time of discharge Morbid Obesity - BMI=54. - Pt has gained 25 lbs in the past 6 months, discussion regarding diet was held. He is agreeable to being more careful with his diet,- appreciate staff educator - Since diuresis, the patient is - 20 lbs since admission. ARCHIE - Pt wears CPAP at home at baseline- wore it last night. He did not get to wear this the first 2 nights of admission. - Speech slow at baseline with neurostimulator on, by pt reports this is his baseline, if speech or neurological status worsens will check ABG. - Noc ox completed last night which he failed because he was not on cpap DVT ppx: Teds, SCDS, heparin Q8H CODE STATUS: FULL code Disposition: From home, lives alone,move out of tele today, likely d/c within 24 hours. (Guera Freeman, DEVON) Attending Attestation & Admission Note: Pt seen/examined, chart reviewed, and care plan d/w TRUNG Freeman. I agree w/ the burch components of her documentation. Pt feeling much better Most pulmonary symptoms (dyspnea on exertion etc) resolved tele normal overnight Vitals - labile BPs near net 10 L negative gen - nad, obese neck - unable to assess for JVD due to body habitus heart - RRR, s1, s2 lungs - scant rales bases, no wheezes abd - soft, NT, obese, BS+ ext - edema 1+ on left, trace on right neuro - mild tremors BMP nl A/P: 1. acute/chronic diastolic CHF - markedly improved; lasix 60mg IV this AM again ; cont salt/fluid restriction; re-eval in am 2. morbid obesity - BMI 50 3. probable pulmonary HTN based on CTA findings - will need to be assessed for home O2 at d/c 4. mediastinal and hilar lymphadenopathy - chronic - etiology?? sarcoid? other? 5. parkinson's disease with deep brain stimulator - sinemet added and titrated by neuro 6. T2DM - controlled; metformin at d/c? 7. HTN - improving BPs 8. ambulatory dysfunction - PT, OT consults appreciated; possible [facility] at d/c 9. recent fall - due to PD Theresa DURAN MD (Sky Duran MD)
[2016-08-09] MEDS ORDERED: FUROSEMIDE INJ 60 MG in SYRINGE 0 ML IV ONE (10:30)
[2016-08-10] VITALS (12 sets, daily range): BP systolic 127–171; BP diastolic 61–87; PULSE 80–95; TEMP 36.1–36.8; O2SAT 92–97
[2016-08-10] MEDS: ACETAMINOPHEN 500 MG TAB PO SCH ×3 (05:38→22:02)
[2016-08-10] MEDS: HEPARIN SOD 5000 UNIT/0.5 ML CARP SQ SCH ×3 (05:39→22:02)
[2016-08-10 06:24] LABS: HEMATOCRIT 43.2 % (42-52); MEAN CELL VOLUME 83.7 fL (80-100); MEAN CORPUSCULAR HEMOGLOBIN 24.8 pg (25-34); MEAN CORPUSCULAR HGB CONC 29.6 g/dl (32-36); MEAN PLATELET VOLUME 10.5 fL (7.4-10.4); PLATELET COUNT 288 K/uL (130-400); RED BLOOD COUNT 5.16 M/uL (4.7-6.1); WHITE BLOOD COUNT 6.03 K/uL (4.8-10.8)
[2016-08-10 06:57] LABS: BUN/CREATININE RATIO 23.8 (10-20); CALCIUM 9.2 mg/dl (8.5-10.1); CREATININE 0.9 mg/dl (0.60-1.40); POTASSIUM 4.1 mmol/L (3.5-5.1)
[2016-08-10] MEDS: ALBUT/IPRATROP 3MG/0.5MG NEB 3 ML VIAL INH SCH ×4 (06:59→19:02)
[2016-08-10] MEDS: FLUOXETINE HCL 20 MG CAP PO SCH (08:19)
[2016-08-10] MEDS: INSULIN ASPART 100 UNITS/ML 3 ML PEN SC SCH ×4 (08:20→22:02)
[2016-08-10] MEDS: CARBIDOPA/LEVODOPA 25/100MG TAB PO SCH ×4 (08:23→19:57)
[2016-08-10] MEDS: METOPROLOL SUCC 25MG EXT REL TAB PO SCH (08:23)
[2016-08-10] MEDS: LISINOPRIL 5 MG TAB PO SCH (08:24)
[2016-08-10] MEDS: ASPIRIN 325 MG ECTAB PO SCH (08:24)
[2016-08-10] MEDS ORDERED: POTASSIUM CHLORIDE 20 MEQ TABCR PO ONE (08:30)
[2016-08-10] MEDS ORDERED: FUROSEMIDE INJ 60 MG in SYRINGE 0 ML IV SCH (09:00)
[2016-08-10] MEDS ORDERED: METOPROLOL SUCC 25MG EXT REL TAB PO ONE (13:00)
[2016-08-10] MEDS ORDERED: OPTIRAY 320 IV PRN (13:00)
--- NOTE | 2016-08-10 14:31 | DIAGNOSTIC IMAGING REPORT ---
CT SCAN OF THE NECK WITH IV CONTRAST CLINICAL HISTORY: Mediastinal lymphadenopathy. Assess for cervical lymphadenopathy. COMPARISON STUDY: CT scan of cervical spine dated 01/29/2011. Chest CT dated 08/07/2016. TECHNIQUE: Following the IV administration of 120 cc of Optiray 320, CT scan of the soft tissues of the neck was performed from the skull base to the upper chest. Images are reviewed in the axial, sagittal, and coronal planes. IV contrast was administered without complication. Examination is degraded by large body habitus and streak artifact. CT DOSE: 2222.84 mGy.cm FINDINGS: Pharynx: The nasopharynx, oropharynx, and laryngeal pharynx are normal in appearance. The pharyngeal airway is widely patent. There is no evidence of mass lesion. The vocal cords are symmetric. The parapharyngeal fat is well maintained. The prevertebral/retropharyngeal soft tissues are within normal limits. The epiglottis is normal. Lymphadenopathy: No cervical lymphadenopathy is seen Thyroid: Normal in size and attenuation. Salivary glands: The parotid and submandibular glands are within normal limits. Brain parenchyma: The visualized brain parenchyma at the skull base is normal in appearance. Vascular structures: The internal carotid arteries and jugular veins are widely patent bilaterally. Moderate atherosclerotic calcification is seen in the carotid bulbs. Skeletal structures: The skeletal structures are osteopenic. There is moderate to advanced multilevel cervical spondylosis. No lytic or blastic lesions are seen. The imaged calvarium at the skull base appears intact. Sinuses and mastoids: Moderate mucosal thickening is seen in the maxillary antra. A retention cyst is noted in the right maxillary antrum. The remaining visualized paranasal sinuses and the mastoid air cells are clear. Upper chest: Scattered upper lobe pulmonary nodules and mildly enlarged based on lymph nodes are noted. See report of chest CT dated 08/07/2016 for detailed intrathoracic findings. Electronically by is are present in the ventral chest wall bilaterally. Leads extend into the occipital soft tissues. IMPRESSION: 1. No acute abnormality is seen. 2. There is no cervical lymphadenopathy identified as clinically queried. Electronically signed by: Aryan Ayers M.D. 08/10/2016 2:30 PM Dictated Date/Time: 08/10/2016 2:24 PM
[2016-08-11] VITALS (7 sets, daily range): BP systolic 136–145; BP diastolic 2–81; PULSE 80–97; TEMP 36.7–36.8; O2SAT 93–98
--- NOTE | 2016-08-11 01:02 | Progress Note ---
Subjective Date of Service: late entry for visit Aug 10, 2016. Subjective Pt evaluation today including: conversation w/ patient, physical exam, chart review, lab review, review of inpatient medication list Pain: denies PO Intake: normal Voiding: no voiding problems tele overnight normal he feels very good denies dyspnea still willing to go to rehab Problem List Medical Problems: (1) Chronic low back pain Status: Acute (2) Dyspnea on exertion Status: Acute (3) Inability to ambulate due to multiple joints Status: Acute (4) Medical non-compliance Status: Acute (5) Shortness of breath Status: Acute (6) Weakness Status: Acute Review of Systems Constitutional: No fever Respiratory: No cough, No sputum, No wheezing, No shortness of breath, No dyspnea on exertion Cardiac: No chest pain, No orthopnea Abdomen: No pain Objective Vital Signs Date Time Temp Pulse Resp B/P (MAP) Pulse Ox O2 Delivery O2 Flow Rate FiO2 08/10/16 23:15 36.7 80 18 127/61 (83) 94 Room Air 08/10/16 23:04 82 96 21 08/10/16 20:22 36.1 92 18 156/81 (106) 95 Room Air 08/10/16 19:44 36.8 85 20 95 08/10/16 19:02 95 18 97 Room Air 08/10/16 16:00 Room Air 08/10/16 15:35 36.8 85 20 127/77 (94) 95 Room Air 08/10/16 14:57 84 18 94 Room Air 08/10/16 12:08 36.4 94 22 153/83 (106) 92 Room Air 08/10/16 12:00 Room Air 08/10/16 11:09 95 18 96 Room Air 08/10/16 08:00 Room Air 08/10/16 07:52 36.8 81 22 171/87 (115) 96 Room Air 08/10/16 07:01 81 18 96 Room Air 08/10/16 04:00 CPAP 08/10/16 03:18 36.7 86 22 127/85 (99) 93 Room Air Physical Exam General Appearance: no apparent distress, + obese ENT: pharynx normal Neck: + adenopathy present (? b/l cervical ), + pertinent finding (difficult to assess for JVD) Respiratory/Chest: lungs clear, no respiratory distress, no accessory muscle use Cardiovascular: regular rate, rhythm, no gallop Abdomen: normal bowel sounds, non tender, soft, no organomegaly Extremities: + pedal edema (left leg, <1+; none on right) Neurologic/Psychiatric: alert, oriented x 3, + pertinent finding (rigidity and tremors present) Skin: + pertinent finding (stasis changes b/l legs, worse on left ) Laboratory Results Last 24 Hours Test 08/10/16 05:50 08/10/16 06:53 08/10/16 11:09 08/10/16 16:12 White Blood Count 6.03 K/uL Red Blood Count 5.16 M/uL Hemoglobin 12.8 g/dL Hematocrit 43.2 % Mean Corpuscular Volume 83.7 fL Mean Corpuscular Hemoglobin 24.8 pg Mean Corpuscular Hemoglobin Concent 29.6 g/dl RDW Standard Deviation 50.7 fL RDW Coefficient of Variation 16.5 % Platelet Count 288 K/uL Mean Platelet Volume 10.5 fL Sodium Level 136 mmol/L Potassium Level 4.1 mmol/L Chloride Level 98 mmol/L Carbon Dioxide Level 29 mmol/L Anion Gap 9.0 mmol/L Blood Urea Nitrogen 21 mg/dl Creatinine 0.90 mg/dl Est Creatinine Clear Calc Drug Dose 141.5 ml/min Estimated GFR () 107.2 Estimated GFR (Non- 92.5 BUN/Creatinine Ratio 23.8 Random Glucose 124 mg/dl Calcium Level 9.2 mg/dl Bedside Glucose 132 mg/dl 131 mg/dl 120 mg/dl Test 08/10/16 20:24 Bedside Glucose 111 mg/dl Assessment and Plan 61yo male: 1. acute/chronic diastolic CHF - continues to diurese nicely and symptoms markedly improved; lasix 60mg IV this AM again; cont salt/fluid restriction; re- eval in am clinically and with BMP. Suspect we are approaching euvolemia. 2. morbid obesity - BMI 50 3. probable pulmonary HTN based on CTA findings - will need to be assessed for home O2 at d/c 4. mediastinal and hilar lymphadenopathy - chronic - etiology?? sarcoid? other? Appears to have cervical lymphadenopathy. CT neck ordered. If he does have neck lymphadenopathy could consider biopsy. 5. parkinson's disease with deep brain stimulator - sinemet added and titrated by neuro 6. T2DM - controlled; metformin at d/c? 7. HTN - uncontrolled; increase BB to 75mg daily. 8. ambulatory dysfunction - PT, OT consults appreciated; possible [facility] at d/c 9. recent fall - due to PD d/c tele move to med/surg Continued [facility] stay due to: multiple IV medications needed Discharge planning: rehab hospital
[2016-08-11] MEDS: HEPARIN SOD 5000 UNIT/0.5 ML CARP SQ SCH ×3 (06:37→22:21)
[2016-08-11] MEDS: ACETAMINOPHEN 500 MG TAB PO SCH ×3 (06:38→22:20)
[2016-08-11] MEDS: ALBUT/IPRATROP 3MG/0.5MG NEB 3 ML VIAL INH SCH ×4 (06:58→19:25)
[2016-08-11 07:15] LABS: BUN/CREATININE RATIO 22.9 (10-20); CREATININE 0.75 mg/dl (0.60-1.40); POTASSIUM 4.3 mmol/L (3.5-5.1)
[2016-08-11 07:49] LABS: CALCIUM 8.6 mg/dl (8.5-10.1)
[2016-08-11] MEDS: ASPIRIN 325 MG ECTAB PO SCH (08:25)
[2016-08-11] MEDS: FLUOXETINE HCL 20 MG CAP PO SCH (08:26)
[2016-08-11] MEDS: LISINOPRIL 5 MG TAB PO SCH (08:26)
[2016-08-11] MEDS: CARBIDOPA/LEVODOPA 25/100MG TAB PO SCH ×4 (08:26→20:18)
[2016-08-11] MEDS: INSULIN ASPART 100 UNITS/ML 3 ML PEN SC SCH ×4 (08:33→22:21)
[2016-08-11] MEDS ORDERED: FUROSEMIDE INJ 40 MG in SYRINGE 0 ML IV SCH (09:00)
[2016-08-11] MEDS: METOPROLOL SUCC 25MG EXT REL TAB PO SCH (09:30)
[2016-08-11] MEDS ORDERED: TRAMADOL HCL 50 MG TAB PO PRN (10:00)
--- NOTE | 2016-08-11 21:12 | Progress Note ---
Subjective Date of Service: Aug 11, 2016. Subjective Pt evaluation today including: conversation w/ patient, physical exam, chart review, lab review Pain: back - lumbar area - chronic PO Intake: normal Voiding: no voiding problems no issues overnight denies orthopnea, dyspnea on exertion, chest pain, cough only complaint is that of chronic lumbar back pain Problem List Medical Problems: (1) Chronic low back pain Status: Acute (2) Dyspnea on exertion Status: Acute (3) Inability to ambulate due to multiple joints Status: Acute (4) Medical non-compliance Status: Acute (5) Shortness of breath Status: Acute (6) Weakness Status: Acute Review of Systems Constitutional: No fever Respiratory: No cough, No sputum, No wheezing, No shortness of breath, No dyspnea on exertion Cardiac: No chest pain, No orthopnea, No PND Abdomen: No pain Objective Vital Signs Date Time Temp Pulse Resp B/P (MAP) Pulse Ox O2 Delivery O2 Flow Rate FiO2 08/11/16 19:26 89 18 94 Room Air 08/11/16 15:58 Room Air 08/11/16 15:38 36.7 85 18 136/81 (99) 94 Room Air 85 08/11/16 15:16 95 18 95 Room Air 08/11/16 11:16 94 18 94 Room Air 08/11/16 08:22 Room Air 08/11/16 07:38 36.8 89 18 145/80 (101) 93 Room Air 89 08/11/16 06:58 97 18 94 Room Air 08/11/16 00:00 CPAP 08/10/16 23:15 36.7 80 18 127/61 (83) 94 Room Air 08/10/16 23:04 82 96 21 Physical Exam General Appearance: no apparent distress, + obese ENT: pharynx normal Neck: no JVD Respiratory/Chest: lungs clear, no respiratory distress, no accessory muscle use Cardiovascular: regular rate, rhythm, no gallop, no murmur Abdomen: normal bowel sounds, non tender, soft, no organomegaly Extremities: + pedal edema (trace - left leg; none on right) Neurologic/Psychiatric: alert, oriented x 3, + pertinent finding (tremors, masked facies, rigidity) Skin: + pertinent finding (stasis changes left leg - no change) Comments: back - tender to palpation over lower lumbar spine and paraspinal areas Laboratory Results Last 24 Hours Test 08/11/16 06:15 08/11/16 07:50 08/11/16 11:23 08/11/16 16:40 Sodium Level 137 mmol/L Potassium Level 4.3 mmol/L Chloride Level 100 mmol/L Carbon Dioxide Level 30 mmol/L Anion Gap 7.0 mmol/L Blood Urea Nitrogen 17 mg/dl Creatinine 0.75 mg/dl Est Creatinine Clear Calc Drug Dose 169.3 ml/min Estimated GFR () 115.6 Estimated GFR (Non- 99.7 BUN/Creatinine Ratio 22.9 Random Glucose 118 mg/dl Calcium Level 8.6 mg/dl Bedside Glucose 121 mg/dl 131 mg/dl 116 mg/dl Test 08/11/16 19:51 Bedside Glucose 118 mg/dl Assessment and Plan 61yo male: 1. acute/chronic diastolic CHF - continues to diurese nicely and all pulmonary symptoms resolved. Net neg 15+ liters. BUN/Cr stable. Lasix 40mg IV x 1 today. Suspect we can start PO lasix tomorrow. Would go with 40mg once daily, but could need less. Cont fluid/salt restriction. Suspect he is euvolemic at this time. Referral to CHF clinic after discharge. 2. morbid obesity - BMI 50 3. probable pulmonary HTN based on CTA findings - will need to be assessed for home O2 at d/c 4. mediastinal and hilar lymphadenopathy - chronic - etiology?? sarcoid? other? CT neck without lymphadenopathy. Recommend referral to pulmonary at discharge. 5. parkinson's disease with deep brain stimulator - sinemet added and titrated by neuro 6. T2DM - controlled; metformin at d/c? 7. HTN - improved with increase in BB to 75mg daily. Cont YUNIEL. 8. ambulatory dysfunction - PT, OT consults appreciated; hopefully tx to [facility] tomorrow for acute inpatient rehab 9. recent fall - due to PD 10. chronic low back pain - likely DJD - tramadol 50mg prn dispo - [facility] if insurance approves he is good candidate for rehab Continued [facility] stay due to: multiple IV medications needed Discharge planning: rehab hospital
[2016-08-12] VITALS (9 sets, daily range): BP systolic 129–152; BP diastolic 72–83; PULSE 74–86; TEMP 36.3–36.8; O2SAT 91–98
[2016-08-12] MEDS: ACETAMINOPHEN 500 MG TAB PO SCH ×3 (06:14→20:45)
[2016-08-12] MEDS: HEPARIN SOD 5000 UNIT/0.5 ML CARP SQ SCH ×3 (06:16→21:26)
[2016-08-12] MEDS: ALBUT/IPRATROP 3MG/0.5MG NEB 3 ML VIAL INH SCH ×4 (07:16→19:50)
[2016-08-12 07:30] LABS: MEAN CELL VOLUME 84.2 fL (80-100); MEAN CORPUSCULAR HEMOGLOBIN 25.5 pg (25-34); MEAN CORPUSCULAR HGB CONC 30.2 g/dl (32-36); MEAN PLATELET VOLUME 10.1 fL (7.4-10.4); PLATELET COUNT 261 K/uL (130-400); RED BLOOD COUNT 4.87 M/uL (4.7-6.1); WHITE BLOOD COUNT 5.05 K/uL (4.8-10.8)
[2016-08-12] MEDS: LISINOPRIL 5 MG TAB PO SCH (07:50)
[2016-08-12] MEDS: CARBIDOPA/LEVODOPA 25/100MG TAB PO SCH ×4 (07:50→20:42)
[2016-08-12] MEDS: ASPIRIN 325 MG ECTAB PO SCH (07:50)
[2016-08-12] MEDS: METOPROLOL SUCC 25MG EXT REL TAB PO SCH (07:50)
[2016-08-12] MEDS: FLUOXETINE HCL 20 MG CAP PO SCH (07:50)
[2016-08-12] MEDS: FUROSEMIDE 40 MG TAB PO SCH (07:51)
[2016-08-12] MEDS: POTASSIUM CHLORIDE 20 MEQ TABCR PO SCH (07:51)
[2016-08-12] MEDS: INSULIN ASPART 100 UNITS/ML 3 ML PEN SC SCH ×4 (07:56→20:46)
[2016-08-12 07:59] LABS: BUN/CREATININE RATIO 23.3 (10-20); CALCIUM 8.9 mg/dl (8.5-10.1); CREATININE 0.97 mg/dl (0.60-1.40); MAGNESIUM 2.4 mg/dl (1.8-2.4); POTASSIUM 4.1 mmol/L (3.5-5.1)
--- NOTE | 2016-08-12 16:07 | Progress Note ---
Subjective Date of Service: Aug 12, 2016. Subjective Pt evaluation today including: conversation w/ patient, physical exam, lab review, review of inpatient medication list Pain: no pain PO Intake: adequate Voiding: no voiding problems patient reports he is breathing better, not quite at baseline but much improved diuresing well, no issues urinating moving bowels, eating well participated in therapy, up to date notes submitted for insurance authorization today, hopeful for answer by tomorrow Problem List Medical Problems: (1) Chronic low back pain Status: Acute (2) Dyspnea on exertion Status: Acute (3) Inability to ambulate due to multiple joints Status: Acute (4) Medical non-compliance Status: Acute (5) Shortness of breath Status: Acute (6) Weakness Status: Acute Review of Systems Respiratory: + dyspnea on exertion Neurologic: + weakness All Other Systems: Reviewed and Negative Medications Current Inpatient Medications Medications (Trade) Dose Ordered Sig/Parris Route Start Time Stop Time Status Last Admin Dose Admin Heparin Sodium (Porcine) (Heparin Sq 5000 Unit/0.5ml) 5,000 unit Q8 SQ 08/06/16 22:00 09/05/16 21:59 08/12/16 14:51 5,000 UNIT Aspirin (Ecotrin Tab) 325 mg QAM PO 08/06/16 22:00 09/05/16 21:59 08/12/16 07:50 325 MG Polyethylene (Miralax Powder Packet) 17 gm DAILY PRN PO 08/06/16 20:30 09/05/16 20:29 Acetaminophen (Tylenol Tab) 1,000 mg Q8 PO 08/07/16 06:00 09/06/16 05:59 08/12/16 14:49 1,000 MG Metoprolol Tartrate (Lopressor Iv) 5 mg Q4H PRN IV 08/06/16 23:00 09/05/16 22:59 Lisinopril (Zestril Tab) 5 mg QAM PO 08/07/16 09:00 09/06/16 08:59 08/12/16 07:50 5 MG Albuterol/ Ipratropium (Duoneb) 3 ml QIDR INH 08/07/16 12:00 09/06/16 11:59 08/12/16 15:20 3 ML Insulin Aspart (novoLOG ASPART) SLIDING SCALE If C... ACHS SC 08/07/16 16:15 09/06/16 16:14 08/12/16 12:30 8 UNITS Glucose (Glucose 40% Gel) 15-30 GRAMS 15 GRAMS... UD PRN PO 08/07/16 11:30 09/06/16 11:29 Glucose (Glucose Chew Tab) 4-8 Tablets 4 Tabl... UD PRN PO 08/07/16 11:30 09/06/16 11:29 Dextrose (Dextrose 50% 50ML Syringe) 25-50ML OF 50% DW IV FOR... UD PRN IV 08/07/16 11:30 09/06/16 11:29 Glucagon (Glucagon Inj) 1 mg UD PRN SQ 08/07/16 11:30 09/06/16 11:29 Fluoxetine HCl (Prozac Cap) 20 mg QAM PO 08/08/16 09:00 09/07/16 08:59 08/12/16 07:50 20 MG Carbidopa/Levodopa (Sinemet 25/ 100MG Tab) 1 tab QID@0800,1200,1600,2000 PO 08/09/16 09:00 09/08/16 08:59 08/12/16 12:27 1 TAB Ioversol (Optiray 320) 125 ml UD PRN IV 08/10/16 13:00 08/14/16 12:59 Metoprolol Succinate (Toprol Xl Tab) 75 mg QAM PO 08/11/16 09:00 09/06/16 08:59 08/12/16 07:50 75 MG Tramadol HCl (Ultram Tab) 50 mg Q4H PRN PO 08/11/16 10:00 09/10/16 09:59 08/11/16 13:36 50 MG Furosemide (Lasix Tab) 40 mg QAM PO 08/12/16 09:00 09/11/16 08:59 08/12/16 07:51 40 MG Potassium Chloride (Klor-Con Tab) 20 meq QAM PO 08/12/16 09:00 09/11/16 08:59 08/12/16 07:51 20 MEQ Objective Vital Signs Date Time Temp Pulse Resp B/P (MAP) Pulse Ox O2 Delivery O2 Flow Rate FiO2 08/12/16 15:41 Room Air 08/12/16 15:20 78 18 96 Room Air 08/12/16 15:09 36.8 86 20 144/82 (102) 98 Room Air 08/12/16 11:10 78 18 96 Room Air 08/12/16 08:11 Room Air 08/12/16 07:24 36.6 82 20 152/83 (106) 96 Room Air 08/12/16 07:20 82 18 91 Room Air 08/12/16 00:05 74 93 21 08/12/16 00:00 Room Air 08/11/16 23:10 36.7 80 20 142/2 (48) 98 Room Air 08/11/16 20:00 Room Air 08/11/16 19:26 89 18 94 Room Air Physical Exam General Appearance: no apparent distress, + obese Neck: supple, no adenopathy, no JVD, trachea midline Respiratory/Chest: chest non-tender, lungs clear, no respiratory distress, no accessory muscle use, + decreased breath sounds Cardiovascular: regular rate, rhythm, no gallop, no JVD, no murmur Abdomen: normal bowel sounds, non tender, soft, no organomegaly Extremities: normal range of motion, non-tender, normal inspection, no calf tenderness, pelvis stable, + pedal edema (trace bilaterally) Neurologic/Psychiatric: back winder II-XII nml as tested, no motor/sensory deficits, alert, normal mood/affect, oriented x 3 Skin: normal color, warm/dry, no rash Lymphatic: no adenopathy Laboratory Results Last 24 Hours Test 08/11/16 16:40 08/11/16 19:51 08/12/16 06:57 08/12/16 07:32 Bedside Glucose 116 mg/dl 118 mg/dl 123 mg/dl White Blood Count 5.05 K/uL Red Blood Count 4.87 M/uL Hemoglobin 12.4 g/dL Hematocrit 41.0 % Mean Corpuscular Volume 84.2 fL Mean Corpuscular Hemoglobin 25.5 pg Mean Corpuscular Hemoglobin Concent 30.2 g/dl RDW Standard Deviation 51.1 fL RDW Coefficient of Variation 16.6 % Platelet Count 261 K/uL Mean Platelet Volume 10.1 fL Sodium Level 135 mmol/L Potassium Level 4.1 mmol/L Chloride Level 97 mmol/L Carbon Dioxide Level 29 mmol/L Anion Gap 9.0 mmol/L Blood Urea Nitrogen 23 mg/dl Creatinine 0.97 mg/dl Est Creatinine Clear Calc Drug Dose 130.9 ml/min Estimated GFR () 97.9 Estimated GFR (Non- 84.5 BUN/Creatinine Ratio 23.3 Random Glucose 120 mg/dl Calcium Level 8.9 mg/dl Magnesium Level 2.4 mg/dl Test 08/12/16 11:10 Bedside Glucose 130 mg/dl Assessment and Plan 61yo male: 1. acute/chronic diastolic CHF - continues to diurese nicely and all pulmonary symptoms resolved. Net neg 17+ liters. BUN/Cr stable. transitioned to Lasix 40mg PO daily today, watch effect on diuresis Cont fluid/salt restriction. very close to euvolemia right now good candidate for rehab needs CHF follow up in clinic 2. morbid obesity - BMI 50 3. probable pulmonary HTN based on CTA findings - breathing room air currently 4. mediastinal and hilar lymphadenopathy - chronic - etiology?? sarcoid? other? CT neck without lymphadenopathy. Recommend referral to pulmonary at discharge. 5. parkinson's disease with deep brain stimulator - sinemet added and titrated by neuro 6. T2DM - controlled; consider Metformin on d/c 7. HTN - improved with increase in BB to 75mg daily. Cont YUNIEL. 8. ambulatory dysfunction - PT, OT consults appreciated; hopefully tx to [facility] tomorrow for acute inpatient rehab insurance auth needed for tomorrow 9. recent fall - due to PD 10. chronic low back pain - likely DJD - tramadol 50mg prn Continued [facility] stay due to: multiple IV medications needed Discharge planning: rehab hospital
[2016-08-12] MEDS ORDERED: NURSING VERBAL MED ORDER ONE (21:45)
[2016-08-12] MEDS ORDERED: CALCIUM CARBONATE 500 MG CHEWABLE PO PRN (22:15)
[2016-08-13] MEDS: ACETAMINOPHEN 500 MG TAB PO SCH (05:45)
[2016-08-13] MEDS: HEPARIN SOD 5000 UNIT/0.5 ML CARP SQ SCH (05:46)
[2016-08-13 07:02] VITALS: BP 136/84; PULSE 82; TEMP 37.1; O2SAT 94
[2016-08-13] MEDS ORDERED: NURSING DECISION MEDICATION ORDER SCH (07:15)
[2016-08-13] MEDS ORDERED: MICONAZOLE NITRATE POWDER 43 GM EXT PRN (07:15)
[2016-08-13] MEDS: ALBUT/IPRATROP 3MG/0.5MG NEB 3 ML VIAL INH SCH (07:29)
[2016-08-13 07:32] VITALS: PULSE 84; O2SAT 95
[2016-08-13 08:00] VITALS: O2SAT 94
[2016-08-13] MEDS: FUROSEMIDE 40 MG TAB PO SCH (08:07)
[2016-08-13] MEDS: FLUOXETINE HCL 20 MG CAP PO SCH (08:07)
[2016-08-13] MEDS: POTASSIUM CHLORIDE 20 MEQ TABCR PO SCH (08:07)
[2016-08-13] MEDS: LISINOPRIL 5 MG TAB PO SCH (08:07)
[2016-08-13] MEDS: CARBIDOPA/LEVODOPA 25/100MG TAB PO SCH (08:07)
[2016-08-13] MEDS: METOPROLOL SUCC 25MG EXT REL TAB PO SCH (08:08)
[2016-08-13] MEDS: ASPIRIN 325 MG ECTAB PO SCH (08:08)
[2016-08-13] MEDS: INSULIN ASPART 100 UNITS/ML 3 ML PEN SC SCH (08:12)
[2016-08-13] MEDS ORDERED: LSX40 PO (08:54)
[2016-08-13] MEDS ORDERED: ASPEC81 PO (08:54)
[2016-08-13] MEDS ORDERED: TPRSR25 PO (08:54)
[2016-08-13] MEDS ORDERED: MCRK20 PO (08:54)
[2016-08-13] MEDS ORDERED: GLC500 PO (08:54)
[2016-08-13] MEDS ORDERED: LSN5 PO (08:54)
[2016-08-13] MEDS ORDERED: ULT50X PO (08:54)
[2016-08-13] MEDS ORDERED: SNM/25100 PO (08:54)
--- NOTE | 2016-08-13 09:01 | Discharge Instructions ---
Discharge Instructions Date of Service Aug 13, 2016. Admission Reason for Admission: Shortness Of Breath Discharge Discharge Diagnosis / Problem: Acute diastolic heart failure, Parkinson's disease, fall at home Discharge Goals Goal(s): Improve function, Increase independence, Improve disease control Activity Recommendations Activity Level: Assistance Required Therapies: Physical Therapy, Occupational Therapy Lifting Limitations: none Exercise/Sports Limitations: as tolerated Shower/Bathe: no limitations . Additional Information Patient informed of condition: Yes Advance Directives: No DNR: No Level of Care: Acute Rehab Communicable Disease: No Prognosis: Improving Oxygen at (LPM): no Negron Catheter: No Instructions / Follow-Up Instructions / Follow-Up Medications: please refer to medication list for new and continued and stopped medications - LISINOPRIL, METOPROLOL, LASIX: all started to treat diastolic heart failure, tolerating well - METFORMIN: started due to new diagnosis of DM type II, HbA1c 7.6, try to titrate up to 1000mg BID if he has no side effects - ASPIRIN: 81mg daily for cardiac protection - POTASSIUM: supplement losses from Lasix - SINEMET: started this admission by neurology, patient has a history of deep brain stimulator, responded well to this dose of Sinemet - ULTRAM: as needed for pain Acute diastolic heart failure: new diagnosis, diuresed 17 liters, lost 10kg (20 lbs), need to weigh patient daily, his weight on discharge is 169kg continue Lasix for diuresis daily fluid restriction to 1500cc/day ARCHIE: wears CPAP chronically FOLLOW UP - physician at [facility] this week - Dr. Friedman, one week after discharge from [facility] - Dr. Reyes (neurology) in one month Call 911 and go to the Emergency Room if: * You have tightness or pain in your chest that does not go away with rest or Nitroglycerin * You are very short of breath even with rest Call your doctor if any of the following symptoms or problems start or get worse: * Shortness of breath or difficulty breathing * Wake up at night short of breath * Chest pain * Cough * Swelling of your hands, fee, or legs * More fatigued or tired with your normal activity * Palpitations - sudden fast heart beats WEIGHT * Weigh yourself every morning after using the bathroom. * Use the same scale. * Wear the same amount of clothing. * Write your weight down on your chart. * Call your doctor if you gain more than 2-3 pounds in 1-2 days. MEDICATIONS * Use this discharge instruction sheet for instructions. * Take your medications at the time your doctor ordered. * Do not skip a dose of your medicines. * If you miss a dose of medicine, take as soon as possible, but DO NOT DOUBLE A DOSE. * Read your medicine information when you get home. * Know all of the side effects of your medicine. * Call your doctor's office if you have any side effects. * Be sure all of your doctors know what medicine and herbs you take (including cold, flu, and herbal medicine). * Pain Medicine: If you do not get relief from your pain, please call your doctor for help. Take the following with you to your follow-up doctor appointments: * Weight Chart * Medication List * List of questions Do not drink excessive alcohol, beer or wine. Current Hospital Diet Patient's current hospital diet: Diabetes Type 2 Diet Discharge Diet Recommended Diet: AHA Diet (Heart Healthy), Diabetes Type 2 Diet Fluid Restriction: 1500 ml (6 cups) Pending Studies Studies pending at discharge: no Physician Orders On Transfer Weigh: daily, continue this after discharge from rehab POLST Discussion: Not Applicable Laboratory Results Hemoglobin A1c Test 08/07/16 02:05 Range/Units Estimated Average Glucose 166 mg/dl Hemoglobin A1c 7.4 H 4.5-5.6 % Lipid Panel Test 08/06/16 20:41 Range/Units Triglycerides Level 115 0-150 mg/dl Cholesterol Level 160 0-200 mg/dl HDL Cholesterol 45 mg/dl Cholesterol/HDL Ratio 3.6 LDL Cholesterol, Calculated 92 mg/dl Medical Emergencies . Who to Call and When: Medical Emergencies: If at any time you feel your situation is an emergency, please call 911 immediately. . Non-Emergent Contact Non-Emergency issues call your: Primary Care Provider Call Non-Emergent contact if: you have any medication questions . . "Provider Documentation" section prepared by Sai Steel. . Core Measure Problem Core Measures: None [place] Drug Monitoring Program Search Results: no issues identified
[2016-08-13 09:10] VITALS: BP 136/84; PULSE 84; TEMP 37.1; O2SAT 94
--- NOTE | 2016-08-14 08:57 | Discharge Summary ---
Discharge Summary Date of Service Aug 13, 2016. Discharge Summary Admission Date: Aug 06, 2016 at 20:31 Discharge Date: Aug 13, 2016 Discharge Disposition: Rehab Principal Diagnosis: Acute on chronic diastolic heart failure Problems/Secondary Diagnoses: Morbid obesity Parkinson disease DM type II Chronic low back pain Immunizations: Have You Had Influenza Vaccine: N/A Influenza Vaccine Date: Jan 19, 2010 History of Tetanus Vaccine?: No History of Pneumococcal: No History of Hepatitis B Vaccine: No Procedures: none Consultations: PT/OT Medication Reconciliation New Medications: Aspirin (Aspirin EC Low Dose) 81 Mg Ectab 81 MG PO DAILY, #30 TABS 3 Refills Metformin HCl (Metformin HCl) 500 Mg Tab 500 MG PO BID, #60 TABS 3 Refills Furosemide (Furosemide) 40 Mg Tab 40 MG PO QAM, #30 TAB 2 Refills Levodopa/Carbidopa (Sinemet 25MG/100MG) 1 Ea Tab 1 TAB PO QID@0800,1200,1600,2000, #120 TAB 2 Refills Lisinopril (Lisinopril) 5 Mg Tab 5 MG PO QAM, #30 TAB 3 Refills Metoprolol Succinate (Metoprolol Succinate ER) 25 Mg Tabcr 75 MG PO QAM, #90 TABS 2 Refills Potassium Chloride (Klor-Con M20) 20 Meq Tabcr 20 MEQ PO QAM, #30 TABS 2 Refills Tramadol HCl (Tramadol HCl) 50 Mg Tab 50 MG PO Q4H PRN for Pain, #30 TAB 0 Refills Continued Medications: Fluoxetine HCl (Fluoxetine HCl) 20 Mg Cap 20 MG PO DAILY, #30 Discontinued Medications: Atenolol (Tenormin) 100 Mg Tab 100 MG PO QAM Discharge Exam Patient was doing well on day of discharge, no issues breathing. Was continuing to respond to Lasix PO for heart failure. Eating well, had a bowel movement the day prior, urinating well. He was ready for discharge to rehab the day prior but had to wait for insurance authorization which we got the morning of 08/13/16. Review of Systems: Constitutional: + weakness, + fatigue, No fever, No chills, No sweats, No weight loss, No problem reported Eyes: No worsening of vision, No eye pain, No redness, No discharge, No diplopia, No problem reported ENT: No hearing loss, No unusual epistaxis, No nasal symptoms, No sore throat, No tinnitus, No dental problems, No trouble swallowing, No problem reported Respiratory: + dyspnea on exertion (mild), No cough, No sputum, No wheezing , No shortness of breath, No dyspnea at rest, No hemoptysis, No problem reported Cardiovascular: + edema, No chest pain, No orthopnea, No PND, No claudication, No palpitations, No problem reported Abdomen: No pain, No nausea, No vomiting, No diarrhea, No constipation, No GI bleeding, No problem reported Musculoskeletal: + joint pain (back), No muscle pain, No swelling, No calf pain, No problem reported Genitourinary - Male: No hematuria, No dysuria, No urinary frequency, No urinary urgency Neurologic: + problem reported (slow gait, bradykinesia, chronic with Parkinson's), No memory loss, No paralysis, No weakness, No numbness/tingling, No vertigo, No balance problems Psychiatric: No depression symptoms, No anhedonism, No anxiety, No insomnia , No substance abuse, No problem reported Endocrine: No fatigue, No excessive thirst, No excessive urination, No problem reported Hematologic / Lymphatic: No abnormal bleeding/bruising, No clotting problems , No swollen lymph nodes, No night sweats, No problem reported Integumentary: No rash, No itch, No new/changing skin lesions, No color change, No bleeding, No problem reported Physical Exam: General Appearance: no apparent distress, + obese (morbid) Eyes: normal inspection, EOMI, sclerae normal ENT: normal ENT inspection, hearing grossly normal, pharynx normal Neck: supple, no adenopathy, no JVD, trachea midline Respiratory/Chest: chest non-tender, lungs clear, normal breath sounds, no respiratory distress, no accessory muscle use Cardiovascular: regular rate, rhythm, no gallop, no JVD, no murmur, normal peripheral pulses Abdomen / GI: normal bowel sounds, non tender, soft, no organomegaly Extremities: normal inspection, no calf tenderness, normal capillary refill , normal range of motion, + pedal edema (bilateraly, pitting) 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 acute/chronic diastolic CHF - continues to diurese nicely and all pulmonary symptoms resolved. Net neg 17+ liters. BUN/Cr stable. transitioned to Lasix 40mg PO daily today, watch effect on diuresis Cont fluid/salt restriction. still with peripheral edema but no pulmonary edema echocardiogram showed dilated LV but EF preserved at 55-60%, grade I diastolic dysfunction good candidate for rehab, transfer to [facility] on 08/13 needs CHF follow up in clinic 2. morbid obesity - BMI 50, encourage weight loss as heart failure and Parkinson's better controlled 3. probable pulmonary HTN based on CTA findings - breathing room air currently 4. mediastinal and hilar lymphadenopathy - chronic - etiology?? sarcoid? other? CT neck without lymphadenopathy. Recommend referral to pulmonary at a later date, once discharged from [facility] 5. parkinson's disease with deep brain stimulator - sinemet added and titrated by neuro, tolerating well 6. T2DM - controlled with Novolog SS HbA1c is 7.4, will start Metformin 500mg BID and titrate as side effects allow 7. HTN - improved with increase in Toprol to 75mg daily. Cont YUNIEL. 8. ambulatory dysfunction - PT, OT consults appreciated; transfer to [facility] on 9. recent fall - due to PD 10. chronic low back pain - likely DJD - tramadol 50mg prn controlling pain Total Time Spent: Greater than 30 minutes This includes examination of the patient, discharge planning, medication reconciliation, and communication with other providers. Discharge Instructions Please refer to the electronic Patient Visit Report (Discharge Instructions) for additional information. Follow-Up physician at [facility] Dr. Friedman one week after discharge from [facility] Dr. Reyes in one month, follow up on Parkinson's with the addition of Sinemet Additional Copies To [facility]; Christine Reyes M.D.; Nickolas Friedman M.D.
[2016-08-21] MEDS ORDERED: VNCE1000 IV (17:33)
== END 2016-08-13 11:02 | DRG 292 ==
LOC: EDBD 13:34 → C.EDA 13:36 → C.2E 20:31 → ENRESERV 20:39 → C.MS2W 08-10 20:21
PROVIDERS: ADMIT Internal Medicine; ATTEND Internal Medicine
DX: I50.33 Acute on chronic diastolic (congestive) heart failure (principal); Z68.43 Body mass index [BMI] 50.0-59.9, adult; E66.01 Morbid (severe) obesity due to excess calories; G20 Parkinson's disease; E11.9 Type 2 diabetes mellitus without complications; M54.5 Low back pain; M54.2 Cervicalgia; G89.29 Other chronic pain; I27.2 Other secondary pulmonary hypertension; W06.XXXA Fall from bed, initial encounter; R59.0 Localized enlarged lymph nodes; G47.33 Obstructive sleep apnea (adult) (pediatric); M19.90 Unspecified osteoarthritis, unspecified site; R26.89 Other abnormalities of gait and mobility; R47.89 Other speech disturbances; E78.5 Hyperlipidemia, unspecified; Y92.003 Bedroom of unspecified non-institutional (private) residence as the place of occurrence of the external cause; Z79.899 Other long term (current) drug therapy; Z99.89 Dependence on other enabling machines and devices; Z91.19 Patient's noncompliance with other medical treatment and regimen; Z96.653 Presence of artificial knee joint, bilateral; Z96.643 Presence of artificial hip joint, bilateral

== ENCOUNTER 2016-08-14 02:42 | Inpatient (IN) | payer BC ==
[~2016-08-14] VITALS: Ht 182.9 cm; Wt 163.5 kg
[~2016-08-14 02:42] MED LIST changes: +ASPEC81 PO; -ATEN100T PO; +FLUO20CA36 PO; -FLX10 PO; +GLC500 PO; -IBUP-1428 PO; +LSN5 PO; +LSX40 PO; +MCRK20 PO; -OXYC1TAB3 PO; +SNM/25100 PO; +TPRSR25 PO; +ULT50X PO
--- NOTE | 2016-08-14 03:01 | EMERGENCY ROOM VISIT NOTE ---
History Report prepared by Timoteo: Chandler Terrazas Under the Supervision of: Dr. Keaton Morgan M.D. First contact with patient: 02:52 Chief Complaint: GI ASSESSMENT Stated Complaint: GI BLEED Nursing Triage Summary: Pt c/o abdominal pain with nausea since this am. Was d/c from [facility] for a fall and CHF to [facility]. Pt was OOB to bathroom and staff members noted bright red blood in stool. Pt states he did vomit earlier this evening, all undigested food. History of Present Illness The patient is a 61 year old male who presents to the Emergency Room with complaints of rectal bleeding starting tonight. Yesterday morning, the patient was sent to [facility] from [facility] after being treated for a fall and CHF. He had a vomiting episode yesterday evening. The [facility] staff noted bright red blood in his stool today. He currently complains of diffuse abdominal pain. He denies any history of abdominal surgeries. The patient is currently receiving heparin shots. Source of History: patient Onset: tonight Position: other (global) Quality: other (rectal bleeding) Associated Symptoms: + vomiting, + abdominal pain Review of Systems See HPI for pertinent positives & negatives. A total of 10 systems reviewed and were otherwise negative. Past Medical & Surgical Medical Problems: (1) Hyperlipidemia (2) Hypertension (3) SOB (shortness of breath) (4) Tremor Surgical Problems: (1) Post-operative state Family History FHx: cancer Social History Smoking Status: Never Smoker Drug Use: none Marital Status: single, Housing Status: lives alone Occupation Status: retired Current/Historical Medications Scheduled Aspirin (Aspirin EC Low Dose), 81 MG PO DAILY Fluoxetine HCl (Fluoxetine HCl), 20 MG PO DAILY Furosemide (Furosemide), 40 MG PO QAM Levodopa/Carbidopa (Sinemet 25MG/100MG), 1 TAB PO QID@0800,1200,1600,2000 Lisinopril (Lisinopril), 5 MG PO QAM Metformin HCl (Metformin HCl), 500 MG PO BID Metoprolol Succinate (Metoprolol Succinate ER), 75 MG PO QAM Potassium Chloride (Klor-Con M20), 20 MEQ PO QAM Scheduled PRN Tramadol HCl (Tramadol HCl), 50 MG PO Q4H PRN for Pain Allergies Coded Allergies: Erythromycin (Unverified Allergy, Unknown, per PCP/cardio note , 08/06/16) Physical Exam Vital Signs Date Time Temp Pulse Resp B/P (MAP) Pulse Ox O2 Delivery O2 Flow Rate FiO2 08/14/16 04:29 94 18 124/83 96 Room Air 08/14/16 03:26 96 15 156/99 95 Room Air 08/14/16 02:56 96 08/14/16 02:49 95 Room Air 08/14/16 02:45 37.2 94 18 147/91 95 Room Air Physical Exam GENERAL: Patient is chronically ill-appearing and in moderate distress. HEENT: No acute trauma, normocephalic atraumatic, mucous membranes moist, no nasal congestion, no scleral icterus. NECK: No stridor, no adenopathy, no meningismus, trachea is midline. LUNGS: No dyspnea. Diffuse crackles all lung wheeler. HEART: Regular rate and rhythm. No murmurs, rubs, gallops appreciated. ABDOMEN: Soft, vague lower abdominal tenderness to palpation, bowel sounds positive, no masses appreciated, no peritonitis. BACK: No midline tenderness, no CVA tenderness RECTAL: Normal perirectal area, exam reveals large amount of bloody stool within rectal vault. EXTREMITIES: Normal motion all extremities, no cyanosis, no edema. NEUROLOGIC: Alert and oriented, no acute motor or sensory deficits, no focal weakness, cranial nerves grossly intact. SKIN: No rash, no jaundice, no diaphoresis. Medical Decision & Procedures ER Provider Diagnostic Interpretation: X ray results are stated below per my interpretation and the radiologist's interpretation. ONE VIEW CHEST X-RAY Perihilar inflammation similar from 1 week ago, enlarged heart is also similar in size to previous chest x-ray, no pneumothorax, no clear evidence of effusion. He has bilateral upper chest stimulators. He has osteo degeneration of shoulder joints. CT results as stated below per interpretation by me and the radiologist: CT ABDOMEN AND PELVIS Impression: There is a large amount of stool and gas throughout the colon. The ascending colon is approaching the upper limits of normal in caliber measuring approximately 8.5 cm in diameter. No obvious obstructive mass is seen. Findings are suggestive of a colonic ileus or colitis. No dilated loop of small bowel identified. Remainder of noncontrast study shows no definite evidence for an additional acute inflammatory process. Radiologist: Irvin Simpson MD Laboratory Results 08/14/16 03:00 Red Blood Count 4.71, Mean Corpuscular Volume 83.2, Mean Corpuscular Hemoglobin 25.5, Mean Corpuscular Hemoglobin Concent 30.6, Mean Platelet Volume 9.8, Neutrophils (%) (Auto) 79.5, Lymphocytes (%) (Auto) 7.2, Monocytes (%) (Auto) 12.4, Eosinophils (%) (Auto) 0.7, Basophils (%) (Auto) 0.1, Neutrophils # (Auto ) 6.11, Lymphocytes # (Auto) 0.55, Monocytes # (Auto) 0.95, Eosinophils # (Auto ) 0.05, Basophils # (Auto) 0.01 08/14/16 03:00 Test 08/14/16 03:00 White Blood Count 7.68 K/uL (4.8-10.8) Red Blood Count 4.71 M/uL (4.7-6.1) Hemoglobin 12.0 g/dL (14.0-18.0) Hematocrit 39.2 % (42-52) Mean Corpuscular Volume 83.2 fL (80-100) Mean Corpuscular Hemoglobin 25.5 pg (25-34) Mean Corpuscular Hemoglobin Concent 30.6 g/dl (32-36) Platelet Count 265 K/uL (130-400) Mean Platelet Volume 9.8 fL (7.4-10.4) Neutrophils (%) (Auto) 79.5 % Lymphocytes (%) (Auto) 7.2 % Monocytes (%) (Auto) 12.4 % Eosinophils (%) (Auto) 0.7 % Basophils (%) (Auto) 0.1 % Neutrophils # (Auto) 6.11 K/uL (1.4-6.5) Lymphocytes # (Auto) 0.55 K/uL (1.2-3.4) Monocytes # (Auto) 0.95 K/uL (0.11-0.59) Eosinophils # (Auto) 0.05 K/uL (0-0.5) Basophils # (Auto) 0.01 K/uL (0-0.2) RDW Standard Deviation 50.4 fL (36.4-46.3) RDW Coefficient of Variation 16.6 % (11.5-14.5) Immature Granulocyte % (Auto) 0.1 % Immature Granulocyte # (Auto) 0.01 K/uL (0.00-0.02) Prothrombin Time 11.2 SECONDS (9.0-12.0) Prothromb Time International Ratio 1.0 (0.9-1.1) Activated Partial Thromboplast Time 23.8 SECONDS (21.0-31.0) Partial Thromboplastin Ratio 0.9 Anion Gap 9.0 mmol/L (3-11) Est Creatinine Clear Calc Drug Dose 145.8 ml/min Estimated GFR () 109.2 Estimated GFR (Non- 94.3 BUN/Creatinine Ratio 35.8 (10-20) Calcium Level 8.7 mg/dl (8.5-10.1) Total Bilirubin 0.6 mg/dl (0.2-1) Direct Bilirubin 0.1 mg/dl (0-0.2) Aspartate Amino Transf (AST/SGOT) 56 U/L (15-37) Alanine Aminotransferase (ALT/SGPT) 28 U/L (12-78) Alkaline Phosphatase 61 U/L (45-117) Total Protein 7.7 gm/dl (6.4-8.2) Albumin 3.6 gm/dl (3.4-5.0) Lipase 178 U/L (73-393) Laboratory results as reviewed by me. ED Course 0252: The patient was evaluated in room A02. A complete history and physical exam was performed. 0453: I discussed the patient's case with Dr. Aguilar, from [facility] Hospitalist Service. Upon reevaluation, the patient is resting comfortably. Discussed results and treatment plan with the patient. He verbalized understanding and agreement with the treatment plan. The patient will be evaluated for further management. Medical Decision Differential: Diverticulitis, AVM, Coagulopathy, Colitis, Malignancy, Upper GI bleed, Fissure, Hemorrhoids, amongst other pathologies entertained. Medication Reconciliation: I attest that I have personally reviewed the patient 's current medication list. Blood pressure screening: Patient was found to have an elevated blood pressure and was referred to the hospitalist for recheck and further treatment. 61 yr old male arrives with heavily rectal bleeding from rehab facility. He was just discharged earlier in the day from this facility after treatment of CHF. He is without peritonitis nor significant abdominal pain/discomfort. Rectal exam clearly with significant bloody stool though patient without BM here otherwise. CT with enlarged colon which may be ileus vs colitis. He is not actively vomiting, has no peritonitis nor surgical abdominal exam nor in acute distress thus I feel emergent surgical consult not indicated at this time. HgB currently stable. Discussed with hospitalist who will bring in for further evaluation/treatment. Consults Time Called: [phone] [facility] Phys[facility] Return[facility] Call: [phone] I discussed the patient's [facility] Impression Primary Impression: GI bleed Additional Impression: Colitis Scribe Attestation The scribe's documentation has been prepared under my direction and personally reviewed by me in its entirety. I confirm that the note above accurately reflects all work, treatment, procedures, and medical decision making performed by me. Departure Information Dispostion Being Evaluated By Hospitalist [facility] Instructions [facility] Problem Qualifiers
[2016-08-14 03:11] LABS: BASO % 0.1 %; BASO ABS # 0.01 K/uL (0-0.2); COMPLETE YES; EOS % 0.7 %; HEMATOCRIT 39.2 % (42-52); IG% 0.1 %; LYMPH % 7.2 %; LYMPH ABS # 0.55 K/uL (1.2-3.4); MEAN CELL VOLUME 83.2 fL (80-100); MEAN CORPUSCULAR HEMOGLOBIN 25.5 pg (25-34); MEAN CORPUSCULAR HGB CONC 30.6 g/dl (32-36); MEAN PLATELET VOLUME 9.8 fL (7.4-10.4); MONO % 12.4 %; NEUT % 79.5 %; PLATELET COUNT 265 K/uL (130-400); RED BLOOD COUNT 4.71 M/uL (4.7-6.1); WHITE BLOOD COUNT 7.68 K/uL (4.8-10.8)
[2016-08-14 03:19] LABS: PARTIAL THROMBOPLASTIN RATIO 0.9; PROTHROMBIN TIME (PATIENT) 11.2 SECONDS (9.0-12.0)
[2016-08-14 03:27] LABS: CALCIUM 8.7 mg/dl (8.5-10.1)
[2016-08-14 03:30] LABS: BUN/CREATININE RATIO 35.8 (10-20); CREATININE 0.86 mg/dl (0.60-1.40); POTASSIUM 4.2 mmol/L (3.5-5.1)
[2016-08-14] MEDS ORDERED: DEXTROSE 50% 50 ML SYR IV PRN (05:15)
[2016-08-14] MEDS ORDERED: ACETAMINOPHEN 325 MG TAB PO PRN (05:15)
[2016-08-14] MEDS ORDERED: GLUCOSE 40% GEL 15 GM TUBE PO PRN (05:15)
[2016-08-14] MEDS ORDERED: GLUCOSE 10 TABS/TUBE PO PRN (05:15)
[2016-08-14] MEDS ORDERED: ONDANSETRON INJ 2 MG/ML 2 ML VIAL IV PRN (05:15)
[2016-08-14] MEDS ORDERED: GLUCAGON FOR INJ 1 MG VIAL SQ PRN (05:15)
--- NOTE | 2016-08-14 05:15 | History and Physical ---
History & Physical Date & Time of Service: Aug 14, 2016 at 05:15 Chief Complaint: Gi Bleed Primary Care Physician: Cristian Singh Mina History of Present Illness Source: patient, clinic records, hospital records The patient is a 61-year-old male most recently admitted to [facility] from August 06 through August 13 for CHF, and then was discharged to [facility]. He reports that he vomited twice yesterday, and he was noted by nurses to have blood in the stool. The patient was unaware of any bleeding. He does report some generalized abdominal discomfort. He currently is receiving heparin shots for DVT prophylaxis. Past Medical/Surgical History Medical Problems: (1) Hyperlipidemia Status: Chronic (2) Hypertension Status: Chronic (3) Tremor Status: Chronic Family History FHx: cancer Social History Smoking Status: Never Smoker Smokeless Tobacco Use: No Alcohol Use: none Drug Use: none Marital Status: single, Housing status: lives with family Occupational Status: retired Immunizations History of Influenza Vaccine: N/A Influenza Vaccine Date: Jan 19, 2010 History of Tetanus Vaccine?: No History of Pneumococcal: No History of Hepatitis B Vaccine: No Multi-Drug Resistant Organisms History of MDRO: No Allergies Coded Allergies: Erythromycin (Unverified Allergy, Unknown, per PCP/cardio note , 08/06/16) Home Medications Scheduled Aspirin (Aspirin EC Low Dose), 81 MG PO DAILY Fluoxetine HCl (Fluoxetine HCl), 20 MG PO DAILY Furosemide (Furosemide), 40 MG PO QAM Levodopa/Carbidopa (Sinemet 25MG/100MG), 1 TAB PO QID@0800,1200,1600,2000 Lisinopril (Lisinopril), 5 MG PO QAM Metformin HCl (Metformin HCl), 500 MG PO BID Metoprolol Succinate (Metoprolol Succinate ER), 75 MG PO QAM Potassium Chloride (Klor-Con M20), 20 MEQ PO QAM Scheduled PRN Tramadol HCl (Tramadol HCl), 50 MG PO Q4H PRN for Pain Review of Systems The patient denies chest pain, palpitations, shortness of breath, cough, lower extremity swelling, sore throat, fevers, chills, sweats, blood in urine, dysuria , urinary frequency or urgency, lightheadedness, dizziness, headache, rash, change in his chronic imbalance, focal weakness. The review of systems is otherwise negative other than for that already noted above, and at least 10 systems have been reviewed. Physical Exam Vital Signs Date Time Temp Pulse Resp B/P (MAP) Pulse Ox O2 Delivery O2 Flow Rate FiO2 08/14/16 04:29 94 18 124/83 96 Room Air 08/14/16 03:26 96 15 156/99 95 Room Air 08/14/16 02:56 96 08/14/16 02:49 95 Room Air 08/14/16 02:45 37.2 94 18 147/91 95 Room Air The patient is awake, alert and oriented 3, normocephalic and atraumatic, lying in bed and in no acute distress. HEENT--PERRL, EOMI, mucous membranes and oropharynx dry. Neck--supple, no JVD or bruits, thyroid normal, trachea midline, no adenopathy. Heart--normal S1 and S2, no extra beats, no murmurs, rubs or gallops. Lungs--decreased breath sounds throughout, no respiratory distress, no accessory muscle use. Abdomen--few high-pitched bowel sounds, mildly firm and mildly distended. Extremities--no cyanosis, clubbing or edema. There are good distal pulses b/l. Dermatologic--normal skin turgor, warm and dry. Chronic venous stasis changes bilateral lower extremities. Neurologic--cranial nerves II through XII grossly intact. Psychiatric--flat affect. Diagnostics Laboratory Results Results Past 24 Hours Test 08/14/16 03:00 08/14/16 05:09 Range/Units White Blood Count 7.68 4.8-10.8 K/uL Red Blood Count 4.71 4.7-6.1 M/uL Hemoglobin 12.0 14.0-18.0 g/dL Hematocrit 39.2 42-52 % Mean Corpuscular Volume 83.2 80-100 fL Mean Corpuscular Hemoglobin 25.5 25-34 pg Mean Corpuscular Hemoglobin Concent 30.6 32-36 g/dl Platelet Count 265 130-400 K/uL Mean Platelet Volume 9.8 7.4-10.4 fL Neutrophils (%) (Auto) 79.5 % Lymphocytes (%) (Auto) 7.2 % Monocytes (%) (Auto) 12.4 % Eosinophils (%) (Auto) 0.7 % Basophils (%) (Auto) 0.1 % Neutrophils # (Auto) 6.11 1.4-6.5 K/uL Lymphocytes # (Auto) 0.55 1.2-3.4 K/uL Monocytes # (Auto) 0.95 0.11-0.59 K/uL Eosinophils # (Auto) 0.05 0-0.5 K/uL Basophils # (Auto) 0.01 0-0.2 K/uL RDW Standard Deviation 50.4 36.4-46.3 fL RDW Coefficient of Variation 16.6 11.5-14.5 % Immature Granulocyte % (Auto) 0.1 % Immature Granulocyte # (Auto) 0.01 0.00-0.02 K/uL Prothrombin Time 11.2 9.0-12.0 SECONDS Prothromb Time International Ratio 1.0 0.9-1.1 Activated Partial Thromboplast Time 23.8 21.0-31.0 SECONDS Partial Thromboplastin Ratio 0.9 Sodium Level 137 136-145 mmol/L Potassium Level 4.2 3.5-5.1 mmol/L Chloride Level 102 98-107 mmol/L Carbon Dioxide Level 26 21-32 mmol/L Anion Gap 9.0 3-11 mmol/L Blood Urea Nitrogen 31 7-18 mg/dl Creatinine 0.86 0.60-1.40 mg/dl Est Creatinine Clear Calc Drug Dose 145.8 ml/min Estimated GFR () 109.2 Estimated GFR (Non- 94.3 BUN/Creatinine Ratio 35.8 10-20 Random Glucose 157 70-99 mg/dl Calcium Level 8.7 8.5-10.1 mg/dl Total Bilirubin 0.6 0.2-1 mg/dl Direct Bilirubin 0.1 0-0.2 mg/dl Aspartate Amino Transf (AST/SGOT) 56 15-37 U/L Alanine Aminotransferase (ALT/SGPT) 28 12-78 U/L Alkaline Phosphatase 61 45-117 U/L Total Protein 7.7 6.4-8.2 gm/dl Albumin 3.6 3.4-5.0 gm/dl Lipase 178 73-393 U/L Impression Assessment and Plan Colitis/fecal retention/bright red blood per rectum--the patient will be admitted to the telemetry unit for serial H&H's every 6 hours. Entrance hemoglobin is 12.0. He'll be nothing by mouth except essential medications. We 'll gently rehydrate, keeping in mind his previous admission for CHF. Discontinue heparin subcutaneous being used for DVT prophylaxis. Consult gastroenterology. Place on SCDs for DVT prophylaxis. Hypertension/CHF--hold aspirin, lisinopril, potassium chloride and furosemide. Continue metoprolol succinate at split dosing with hold parameters. Diabetes mellitus--hold metformin. Place on Accu-Cheks before meals and at bedtime with NovoLog coverage per scale. Parkinson's--continue current dosing of Sinemet, and bilateral neural stimulators. Depression--continue fluoxetine 20 mg by mouth daily. Level of Care Telemetry Advanced Directives Existing Advance Directive: No Existing Living Will: No Existing Power of Supervisor [employer]: No Resuscitation Status FULL RESUSCITATION VTE Prophylaxis VTE Risk Assessment Done? Y/N: Yes Risk Level: High Given or contraindicated: SCD's
[2016-08-14] MEDS ORDERED: IV FLUIDS COMPLETED PRN (05:30)
[2016-08-14 05:50] VITALS: BP 170/85; PULSE 99; TEMP 37; O2SAT 94; Ht 182.9 cm; Wt 163.5 kg
[2016-08-14] MEDS ORDERED: INSULIN ASPART 100 UNITS/ML 3 ML PEN SC SCH (06:30)
[2016-08-14] MEDS: NSS + 20MEQ KCL 1000ML 1,000 ML IV SCH ×2 (06:35→18:17)
[2016-08-14 06:50] LABS: HEMATOCRIT 40.6 % (42-52)
--- NOTE | 2016-08-14 07:24 | DIAGNOSTIC IMAGING REPORT ---
SINGLE VIEW CHEST CLINICAL HISTORY: Vomiting. Crackles on physical examination. FINDINGS: An AP, portable, upright chest radiograph is compared to study dated 08/06/2016 and correlated with chest CT dated 08/07/2016. The examination is degraded by portable technique, apical lordotic positioning, and patient rotation. Bilateral electronic devices partially obscure the upper lobes with leads extending to the neck. The heart is enlarged and there is mild pulmonary vascular congestion. Trace pleural effusions are suspected and there is bibasilar basilar atelectasis. No pneumothorax is seen. The skeletal structures are osteopenic. Advanced degenerative changes noted in the thoracic spine and shoulders. IMPRESSION: 1. Cardiomegaly with mild pulmonary vascular congestion. 2. Suspect trace pleural effusions. Electronically signed by: Aryan Ayers M.D. 08/14/2016 7:22 AM Dictated Date/Time: 08/14/2016 7:20 AM
--- NOTE | 2016-08-14 07:30 | DIAGNOSTIC IMAGING REPORT ---
CT OF THE ABDOMEN AND PELVIS WITHOUT CONTRAST, STONE PROTOCOL CLINICAL HISTORY: Abdominal pain, vomiting and lower GI bleed. COMPARISON STUDY: None. TECHNIQUE: Helical axial images of the abdomen and pelvis were obtained without IV or oral contrast according to renal stone protocol. FINDINGS: There is a trace pericardial effusion. Visualized portions of lower chest partially visualize bilateral hilar and mediastinal lymphadenopathy as well as subpleural nodules which were shown on earlier chest CTs dating back to November 15, 2014. There is no hydronephrosis. No urinary calculi are present. Evaluation of the abdomen and pelvis suboptimal on this unenhanced examination. Apparent heterogeneity of the liver may be artifactual. Unenhanced images of the spleen, adrenal glands and pancreas are normal. There is no pneumatosis, free air or portal venous gas. There is moderate distention of the colon without transition point. There is a moderate amount of poorly formed stool within the colon. The appendix is normal. Sensitivity for detection of mucosal lesions is diminished given CT technique. Apparent focal wall thickening of the mid sigmoid colon shown image 401 of 503 is probably within normal limits. Images of the pelvis are degraded from bilateral hip hardware. No suspicious osseous lesions are identified. There is no pneumatosis, free air or portal venous gas. IMPRESSION: 1. Moderate colonic dilatation with the ascending colon measuring up to 8.5 cm. No transition point to suggest mechanical obstruction. Moderate amount of poorly formed stool within the colon. The findings could reflect a colonic pseudoobstruction. A colitis could appear similar although no definite bowel wall thickening. 2. Decreased sensitivity for detection of mucosal lesions given CT technique. Apparent focal wall thickening of the mid sigmoid colon is probably within normal limits although a mucosal lesion could appear similar and this could be correlated with colonoscopy. 3. Redemonstration of bilateral hilar and mediastinal lymphadenopathy with several subpleural nodules which are unchanged since CT of November 15, 2014 and may reflect a granulomatous process. Electronically signed by: Srinivas Shell M.D. 08/14/2016 7:29 AM Dictated Date/Time: 08/14/2016 7:12 AM
[2016-08-14] MEDS: CARBIDOPA/LEVODOPA 25/100MG TAB PO SCH (08:00)
[2016-08-14] MEDS ORDERED: NURSING DECISION MEDICATION ORDER SCH (09:00)
[2016-08-14] MEDS ORDERED: FUROSEMIDE 40 MG TAB PO SCH (09:00)
[2016-08-14] MEDS ORDERED: FLUOXETINE HCL 20 MG CAP PO SCH (09:00)
[2016-08-14] MEDS ORDERED: LISINOPRIL 5 MG TAB PO SCH (09:00)
[2016-08-14] MEDS ORDERED: METOPROLOL SUCC 25MG EXT REL TAB PO SCH (09:00)
[2016-08-14 09:12] VITALS: BP 130/80; PULSE 91
[2016-08-14] MEDS: FUROSEMIDE INJ 20 MG in SYRINGE 0 ML IV SCH (09:13)
--- NOTE | 2016-08-14 10:41 | Family Medicine Progress Note ---
Progress Note Date of Service Aug 14, 2016. Subjective Pt evaluation today including: conversation w/ patient, physical exam, chart review, lab review, review of studies, conversation w/ customer service and sales consultant Pain: 0/10 PO Intake: NPO Voiding: no voiding problems Patient has ongoing N&V and diarrhea today. We did discuss the results of his CT scan and patient is agreeable with plan. Patient denies any chest pain or SOB. Could not recall blood in his stool or emesis Constitutional: No fever Eyes: No worsening of vision ENT: No hearing loss Respiratory: No cough, No sputum, No wheezing, No shortness of breath, No dyspnea on exertion Cardiovascular: No chest pain Abdomen: + nausea, + vomiting, + diarrhea, No pain, No constipation Male : No dysuria Neurologic: + weakness, + balance problems, No memory loss, No numbness/ tingling Psychiatric: No depression symptoms Heme: No abnormal bleeding/bruising Endo: No fatigue Skin: No rash Medications Medications Administered Medications (Trade) Dose Ordered Sig/Parris Route Start Time Stop Time Status Last Admin Dose Admin Potassium Chloride/Sodium Chloride 1,000 ml @ 80 mls/hr [id number] IV 08/14/16 05:09 09/13/16 05:08 08/14/16 06:35 80 MLS/HR Insulin Aspart (novoLOG ASPART) SLIDING SCALE If C... ACHS SC 08/14/16 06:30 08/14/16 09:13 DC 08/14/16 08:37 1 UNITS Furosemide 20 mg/ Syringe 2 ml @ 4 mls/min DAILY IV 08/14/16 09:00 09/13/16 08:59 08/14/16 09:13 4 MLS/MIN Objective Vital Signs Date Time Temp Pulse Resp B/P (MAP) Pulse Ox O2 Delivery O2 Flow Rate FiO2 08/14/16 09:12 91 130/80 (97) 08/14/16 08:00 Room Air 08/14/16 05:50 37.0 99 20 170/85 94 Room Air 08/14/16 05:22 95 18 101/58 95 08/14/16 04:29 94 18 124/83 96 Room Air 08/14/16 03:26 96 15 156/99 95 Room Air 08/14/16 02:56 96 08/14/16 02:49 95 Room Air 08/14/16 02:45 37.2 94 18 147/91 95 Room Air Physical Exam General Appearance: no apparent distress, + obese Eyes: normal inspection ENT: normal ENT inspection Neck: supple Respiratory/Chest: no respiratory distress, no accessory muscle use, + decreased breath sounds (bilat bases) Cardiovascular: regular rate, rhythm, no murmur Abdomen: normal bowel sounds, non tender, soft, + distended (midly ) Extremities: non-tender, normal inspection, no calf tenderness, + pedal edema ( +1 bilat) Neurologic/Psychiatric: alert, normal mood/affect, oriented x 3 Skin: normal color, warm/dry, no rash Lymphatic: no adenopathy Laboratory Results Results Past 24 Hours Test 08/14/16 03:00 08/14/16 06:18 08/14/16 07:19 Range/Units White Blood Count 7.68 4.8-10.8 K/uL Red Blood Count 4.71 4.7-6.1 M/uL Hemoglobin 12.0 11.8 14.0-18.0 g/dL Hematocrit 39.2 40.6 42-52 % Mean Corpuscular Volume 83.2 80-100 fL Mean Corpuscular Hemoglobin 25.5 25-34 pg Mean Corpuscular Hemoglobin Concent 30.6 32-36 g/dl Platelet Count 265 130-400 K/uL Mean Platelet Volume 9.8 7.4-10.4 fL Neutrophils (%) (Auto) 79.5 % Lymphocytes (%) (Auto) 7.2 % Monocytes (%) (Auto) 12.4 % Eosinophils (%) (Auto) 0.7 % Basophils (%) (Auto) 0.1 % Neutrophils # (Auto) 6.11 1.4-6.5 K/uL Lymphocytes # (Auto) 0.55 1.2-3.4 K/uL Monocytes # (Auto) 0.95 0.11-0.59 K/uL Eosinophils # (Auto) 0.05 0-0.5 K/uL Basophils # (Auto) 0.01 0-0.2 K/uL RDW Standard Deviation 50.4 36.4-46.3 fL RDW Coefficient of Variation 16.6 11.5-14.5 % Immature Granulocyte % (Auto) 0.1 % Immature Granulocyte # (Auto) 0.01 0.00-0.02 K/uL Prothrombin Time 11.2 9.0-12.0 SECONDS Prothromb Time International Ratio 1.0 0.9-1.1 Activated Partial Thromboplast Time 23.8 21.0-31.0 SECONDS Partial Thromboplastin Ratio 0.9 Sodium Level 137 136-145 mmol/L Potassium Level 4.2 3.5-5.1 mmol/L Chloride Level 102 98-107 mmol/L Carbon Dioxide Level 26 21-32 mmol/L Anion Gap 9.0 3-11 mmol/L Blood Urea Nitrogen 31 7-18 mg/dl Creatinine 0.86 0.60-1.40 mg/dl Est Creatinine Clear Calc Drug Dose 145.8 ml/min Estimated GFR () 109.2 Estimated GFR (Non- 94.3 BUN/Creatinine Ratio 35.8 10-20 Random Glucose 157 70-99 mg/dl Calcium Level 8.7 8.5-10.1 mg/dl Total Bilirubin 0.6 0.2-1 mg/dl Direct Bilirubin 0.1 0-0.2 mg/dl Aspartate Amino Transf (AST/SGOT) 56 15-37 U/L Alanine Aminotransferase (ALT/SGPT) 28 12-78 U/L Alkaline Phosphatase 61 45-117 U/L Total Protein 7.7 6.4-8.2 gm/dl Albumin 3.6 3.4-5.0 gm/dl Lipase 178 73-393 U/L Bedside Glucose 155 70-99 mg/dl Microbiology Results 08/14/16 MRSA DNA Surveillance Screen - Final, Complete Specimen Negative for MRSA by DNA Probe Assessment and Plan 61 yo M recently d/c from the hospital for an admission on Aug 062016 for SOB and CHF exacerbation. During that admission he was diuresed approx 20 pounds worth of water weight. He was admitted to [facility] for rehab and after a short period of time he developed N&V and what looked like blood in his stool. Because of the recent admission and Heparin for DVT prophylaxis he was sent back to the hospital. He was found to have a pseudoobstruction and placed on NPO with NG tube. Pseudoobstruction - NG placed on intermittent suction temporarily because of ongoing N&V - strict NPO - gentle hydration with NSS KCL 20 @ 80 cc/h - Consult GI - appreciate input - PT/ OT to encourage ambulation Possible lower GI bleed - hemmoccult - C diff and stool cultures - Not at risk of ischemic colitis - no h/o atherosclerotic ds. closely follow. - HH q6 and if remains stable can be downgraded Thickening of bowel wall - if no emergent colonoscopy required will arrange for outpt Chronic diastolic HF - Will change Lasix PO to 20 mg IV while he is NPO - Will put back on Lasix 40 mg daily once able to tolerate PO - lisinopril, ASA is on hold HTN - PO metoprolol held and patient placed on IV metoprolol for systolic > 160 - transition once tolerating PO DMII - Insulin ISS - metformin held Parkinson's - continue Sinemet, neural stimulator noted Depression - fluoxetine once tolerating PO DVT SCD Continued [facility] stay due to: inadequate po fluid intake Discharge planning: uncertain Reviewed: Pt Seen/Exam by Me History feeling misreable but better than last night. doesn't like the NG tube denies any abdominal pain no fever Constitutional: denies: fever Respiratory: negative: short of breath Cardiovascular: denies chest pain General Appearance: no apparent distress (comfortable in bed) Respiratory: lungs clear, no respiratory distress Cardiovascular: regular rate, rhythm Gastrointestinal: non tender, soft, other (diminished bowel sounds) Neurologic/Psychiatric: alert, oriented x 3, other (speech - slow) Skin Characteristics: warm/dry Assessment/Plan Resident Physician Supervision Note: I was present with Dr. Mcknight in bedside. I verified the burch history and physical , reviewed labs and image studies, discussed the case with the resident and agree with the findings and care plan.
[2016-08-14 11:42] VITALS: BP 132/82; PULSE 98; TEMP 36.9; O2SAT 94
--- NOTE | 2016-08-14 11:51 | DIAGNOSTIC IMAGING REPORT ---
KUB CLINICAL HISTORY: Nasogastric tube placement. COMPARISON STUDY: CT of the abdomen and pelvis August 14, 2016. FINDINGS: The tip of the nasogastric tube is within the body of the stomach. Gaseous distention of the colon is again noted. This is similar to prior CT. Colon measures up to 8.7 cm in caliber. IMPRESSION: 1. Tip of nasogastric tube within the body of stomach. 2. No change in moderate gaseous distention of the colon since abdominal CT performed earlier today. Electronically signed by: Srinivas Shell M.D. 08/14/2016 11:49 AM Dictated Date/Time: 08/14/2016 11:48 AM
[2016-08-14 11:55] LABS: HEMATOCRIT 39.6 % (42-52)
[2016-08-14] MEDS: INSULIN ASPART 100 UNITS/ML 3 ML PEN SC SCH ×2 (12:00→18:00)
[2016-08-14] MEDS ORDERED: METOPROLOL TARTRATE 1 MG/ML VIAL IV PRN (12:00)
[2016-08-14] MEDS: MICONAZOLE NITRATE POWDER 43 GM EXT PRN (14:04)
[2016-08-14 15:10] VITALS: BP 148/81; PULSE 100; TEMP 36.7; O2SAT 94
--- NOTE | 2016-08-14 16:52 | Gastrointestinal Consultation ---
Gastrointestinal Consultation Date of Consultation: Aug 14, 2016 Attending Physician: Dr. Aguilar Consulting Physician: Dr. Rhoades Reason for Consultation: Colitis, Lower GI Bleeding History of Present Illness Patient is a 61 year old male who presented to the ER yesterday from [facility] after he had recurrent vomiting, and reportedly passed some BRBPR. He had previously been admitted to [facility] from 08/06-08/13 for decompensated Heart failure. Upon arrival to the [facility], he was noted to have an H/H of 12/39.2. A CT scan without PO or IV contrast was obtained, and findings included moderate colonic dilation with the Ascending colon measuring up to 8.5 cm. There was a moderate amount of stool noted in the colon. There was also focal wall thickening in the sigmoid colon, however, it was felt to most likely be within normal limits. At the time I saw the patient, he was continuing to have recurrent vomiting. He denied any hematemesis, or melena, and has had no further Bright Red blood per rectum. He did complain of LLQ abdominal pain rated as a 4/10 in intensity, non-radiating, described as a constant ache. He has not had a colonoscopy in the past. He denies any fevers, chills, chest pain , SOB or cough. Due to persistent vomiting, an NG tube was placed. Past Medical/Surgical History Medical Problems: (1) Chronic low back pain Status: Acute (2) Colitis Status: Acute (3) Dyspnea on exertion Status: Acute (4) GI bleed Status: Acute (5) Inability to ambulate due to multiple joints Status: Acute (6) Medical non-compliance Status: Acute (7) Shortness of breath Status: Acute (8) Weakness Status: Acute Past Medical History: 1) HTN 2) Hyperlipidemia 3) Heart Failure 4) Tremor Family History FHx: cancer Social History Smoking Status: Never Smoker Drug Use: none Marital Status: single, Housing Status: lives alone Occupation Status: retired Allergies Coded Allergies: Erythromycin (Unverified Allergy, Unknown, per PCP/cardio note , 08/06/16) Current Medications Home Meds and Scripts Medications Dose Route/Sig Max Daily Dose Days Date Category Metformin HCl 500 Mg Tab 500 Mg PO BID 08/13/16 Rx Aspirin EC Low Dose (Aspirin) 81 Mg Ectab 81 Mg PO DAILY 08/13/16 Rx Tramadol HCl 50 Mg Tab 50 Mg PO Q4H PRN 08/13/16 Rx Klor-Con M20 (Potassium Chloride) 20 Meq Tabcr 20 Meq PO QAM 08/13/16 Rx Furosemide 40 Mg Tab 40 Mg PO QAM 08/13/16 Rx Sinemet 25MG/100MG (Carbidopa/Levodopa) 1 Ea Tab 1 Tab PO QID@0800,1200,1600,2000 08/13/16 Rx Metoprolol Succinate ER (Metoprolol Succinate) 25 Mg Tabcr 75 Mg PO QAM 08/13/16 Rx Lisinopril 5 Mg Tab 5 Mg PO QAM 08/13/16 Rx Fluoxetine HCl 20 Mg Cap 20 Mg PO DAILY 08/06/16 Reported Review of Systems Constitutional: + weight loss (secondary to treatment of heart failure), No fever, No chills ENT: No unusual epistaxis, No sore throat Respiratory: + dyspnea on exertion, No cough, No sputum, No shortness of breath Cardiac: No chest pain Abdomen: + pain, + nausea, + vomiting, + diarrhea, + GI bleeding, No constipation, No dysphagia, No odynophagia, No jaundice Male : No dysuria, No hematuria Psych: No depression symptoms Heme: No abnormal bleeding/bruising Endo: + fatigue Skin: No rash Physical Exam Date Time Temp Pulse Resp B/P (MAP) Pulse Ox O2 Delivery O2 Flow Rate FiO2 08/14/16 15:10 36.7 100 20 148/81 (103) 94 Room Air 08/14/16 12:00 Room Air 08/14/16 11:42 36.9 98 18 132/82 (99) 94 Room Air 08/14/16 09:12 91 130/80 (97) 08/14/16 08:00 Room Air 08/14/16 05:50 37.0 99 20 170/85 94 Room Air 08/14/16 05:22 95 18 101/58 95 08/14/16 04:29 94 18 124/83 96 Room Air 08/14/16 03:26 96 15 156/99 95 Room Air 08/14/16 02:56 96 08/14/16 02:49 95 Room Air 08/14/16 02:45 37.2 94 18 147/91 95 Room Air General Appearance: no apparent distress, + obese Eyes: PERRL, EOMI ENT: hearing grossly normal Neck: supple Respiratory/Chest: + decreased breath sounds Cardiovascular: regular rate, rhythm, no murmur Abdomen: soft, + tenderness (LLQ) Extremities: + pedal edema Neurologic/Psych: alert, normal mood/affect, oriented x 3 Skin: no jaundice Laboratory Results Last 24 Hours Test 08/14/16 03:00 08/14/16 06:18 08/14/16 07:19 08/14/16 11:14 White Blood Count 7.68 K/uL Red Blood Count 4.71 M/uL Hemoglobin 12.0 g/dL 11.8 g/dL 12.0 g/dL Hematocrit 39.2 % 40.6 % 39.6 % Mean Corpuscular Volume 83.2 fL Mean Corpuscular Hemoglobin 25.5 pg Mean Corpuscular Hemoglobin Concent 30.6 g/dl Platelet Count 265 K/uL Mean Platelet Volume 9.8 fL Neutrophils (%) (Auto) 79.5 % Lymphocytes (%) (Auto) 7.2 % Monocytes (%) (Auto) 12.4 % Eosinophils (%) (Auto) 0.7 % Basophils (%) (Auto) 0.1 % Neutrophils # (Auto) 6.11 K/uL Lymphocytes # (Auto) 0.55 K/uL Monocytes # (Auto) 0.95 K/uL Eosinophils # (Auto) 0.05 K/uL Basophils # (Auto) 0.01 K/uL RDW Standard Deviation 50.4 fL RDW Coefficient of Variation 16.6 % Immature Granulocyte % (Auto) 0.1 % Immature Granulocyte # (Auto) 0.01 K/uL Prothrombin Time 11.2 SECONDS Prothromb Time International Ratio 1.0 Activated Partial Thromboplast Time 23.8 SECONDS Partial Thromboplastin Ratio 0.9 Sodium Level 137 mmol/L Potassium Level 4.2 mmol/L Chloride Level 102 mmol/L Carbon Dioxide Level 26 mmol/L Anion Gap 9.0 mmol/L Blood Urea Nitrogen 31 mg/dl Creatinine 0.86 mg/dl Est Creatinine Clear Calc Drug Dose 145.8 ml/min Estimated GFR () 109.2 Estimated GFR (Non- 94.3 BUN/Creatinine Ratio 35.8 Random Glucose 157 mg/dl Calcium Level 8.7 mg/dl Total Bilirubin 0.6 mg/dl Direct Bilirubin 0.1 mg/dl Aspartate Amino Transf (AST/SGOT) 56 U/L Alanine Aminotransferase (ALT/SGPT) 28 U/L Alkaline Phosphatase 61 U/L Total Protein 7.7 gm/dl Albumin 3.6 gm/dl Lipase 178 U/L Bedside Glucose 155 mg/dl Test 08/14/16 11:47 Bedside Glucose 149 mg/dl Impression Patient is a 61 year old male with recent admission for Heart failure, who was readmitted secondary to recurrent vomiting, bright red blood per rectum, and abnormal non-contrast CT abd/pelvis. Plan 1) Recommend continuing supportive care with NG tube as needed. 2) No overt GI bleeding at present, and he remains hemodynamically stable. 3) Add Protonix 40mg IV BID 4) Recommend repeat CT scan of the Abd/Pelvis with PO and IV contrast when he can tolerate PO intake 5) No colonoscopy at this time, as patient cannot tolerate bowel prep, and he is hemodynamically stable without overt GI bleeding. 6) Agree with checking stool for C-diff 7) Will follow clinical course and make further recommendations as needed.
[2016-08-14 17:14] LABS: HEMATOCRIT 39.6 % (42-52)
[2016-08-14 19:13] VITALS: BP 143/89; PULSE 112; TEMP 36.9; O2SAT 96
[2016-08-14 23:03] VITALS: BP 161/93; PULSE 104; TEMP 37; O2SAT 96
[2016-08-15] MEDS: INSULIN ASPART 100 UNITS/ML 3 ML PEN SC SCH ×4 (00:38→18:00)
[2016-08-15 04:35] VITALS: BP 166/91; PULSE 104; TEMP 36.6; O2SAT 94
[2016-08-15 05:30] LABS: BASO % 0.1 %; BASO ABS # 0.01 K/uL (0-0.2); COMPLETE YES; EOS % 0.6 %; HEMATOCRIT 38.8 % (42-52); IG% 0.3 %; LYMPH % 7.5 %; LYMPH ABS # 0.54 K/uL (1.2-3.4); MEAN CELL VOLUME 85.1 fL (80-100); MEAN CORPUSCULAR HEMOGLOBIN 26.1 pg (25-34); MEAN CORPUSCULAR HGB CONC 30.7 g/dl (32-36); MEAN PLATELET VOLUME 9.6 fL (7.4-10.4); NEUT % 81.5 %; PLATELET COUNT 254 K/uL (130-400); RED BLOOD COUNT 4.56 M/uL (4.7-6.1); WHITE BLOOD COUNT 7.17 K/uL (4.8-10.8)
[2016-08-15 05:46] LABS: PARTIAL THROMBOPLASTIN RATIO 0.9
[2016-08-15] MEDS: NSS + 20MEQ KCL 1000ML 1,000 ML IV SCH ×2 (06:23→19:04)
[2016-08-15 06:51] LABS: CALCIUM 8.6 mg/dl (8.5-10.1); MAGNESIUM 2.4 mg/dl (1.8-2.4); POTASSIUM 3.9 mmol/L (3.5-5.1)
[2016-08-15 07:07] LABS: BUN/CREATININE RATIO 31.4 (10-20); CREATININE 0.8 mg/dl (0.60-1.40)
[2016-08-15 07:35] VITALS: BP 162/76; PULSE 104; TEMP 36.6; O2SAT 94
[2016-08-15] MEDS: FUROSEMIDE INJ 20 MG in SYRINGE 0 ML IV SCH (08:49)
--- NOTE | 2016-08-15 09:56 | Family Medicine Progress Note ---
Progress Note Date of Service Aug 15, 2016. Subjective Pt evaluation today including: conversation w/ patient, physical exam, chart review, lab review, review of studies Pain: 0/10 PO Intake: improving Voiding: no voiding problems Patient was able to tolerate fluids this morning without N&V this morning and is willing to try the PO contrast for CT. states he has ongoing diarrhea however he does not have anymore visible blood in the stool. Abdominal pain has completely resolved Constitutional: No fever Eyes: No worsening of vision ENT: No hearing loss Respiratory: No cough, No sputum, No wheezing, No shortness of breath, No dyspnea on exertion Cardiovascular: No chest pain Abdomen: + diarrhea, No pain, No nausea, No vomiting Musculoskeletal: + problem reported (tremor, BL), No joint pain Neurologic: + weakness, + balance problems, No memory loss Psychiatric: No depression symptoms Endo: No fatigue Skin: No rash Medications Medications Administered Medications (Trade) Dose Ordered Sig/Parris Route Start Time Stop Time Status Last Admin Dose Admin Potassium Chloride/Sodium Chloride 1,000 ml @ 80 mls/hr [id number] IV 08/14/16 05:09 09/13/16 05:08 08/15/16 06:23 80 MLS/HR Insulin Aspart (novoLOG ASPART) SLIDING SCALE If C... ACHS SC 08/14/16 06:30 08/14/16 09:13 DC 08/14/16 08:37 1 UNITS Furosemide 20 mg/ Syringe 2 ml @ 4 mls/min DAILY IV 08/14/16 09:00 09/13/16 08:59 08/15/16 08:49 4 MLS/MIN Miconazole Nitrate (Desenex Powder) 1 appln PRN PRN EXT 08/14/16 09:30 09/13/16 09:29 08/14/16 14:04 1 APPLN Objective Vital Signs Date Time Temp Pulse Resp B/P (MAP) Pulse Ox O2 Delivery O2 Flow Rate FiO2 08/15/16 07:35 36.6 104 16 162/76 (104) 94 Room Air 08/15/16 04:35 36.6 104 18 166/91 (116) 94 Room Air 08/15/16 04:00 Room Air 08/15/16 00:00 Room Air 08/14/16 23:03 37.0 104 18 161/93 (115) 96 Room Air 08/14/16 20:31 Room Air 08/14/16 19:13 36.9 112 20 143/89 (107) 96 Room Air 08/14/16 16:00 Room Air 08/14/16 15:10 36.7 100 20 148/81 (103) 94 Room Air 08/14/16 12:00 Room Air 08/14/16 11:42 36.9 98 18 132/82 (99) 94 Room Air Physical Exam General Appearance: no apparent distress, + obese Eyes: normal inspection ENT: normal ENT inspection Neck: supple Respiratory/Chest: normal breath sounds, no respiratory distress, no accessory muscle use, + decreased breath sounds (bilat bases) Cardiovascular: regular rate, rhythm, no murmur Abdomen: normal bowel sounds, non tender, soft Extremities: normal range of motion, non-tender, normal inspection, no pedal edema, no calf tenderness Neurologic/Psychiatric: alert, normal mood/affect, oriented x 3, + pertinent finding (slow speech , tremor of right UE and left LE noted) Skin: normal color, warm/dry, no rash Lymphatic: no adenopathy Laboratory Results Results Past 24 Hours Test 08/14/16 11:14 08/14/16 11:47 08/14/16 17:06 08/14/16 18:06 Range/Units Hemoglobin 12.0 12.1 14.0-18.0 g/dL Hematocrit 39.6 39.6 42-52 % Bedside Glucose 149 133 70-99 mg/dl Test 08/14/16 19:45 08/14/16 23:00 08/14/16 23:54 08/15/16 05:11 Range/Units Stool Occult Blood POSITIVE NEGATIVE Hemoglobin 11.7 11.9 14.0-18.0 g/dL Hematocrit 39.0 38.8 42-52 % Bedside Glucose 124 70-99 mg/dl White Blood Count 7.17 4.8-10.8 K/uL Red Blood Count 4.56 4.7-6.1 M/uL Mean Corpuscular Volume 85.1 80-100 fL Mean Corpuscular Hemoglobin 26.1 25-34 pg Mean Corpuscular Hemoglobin Concent 30.7 32-36 g/dl Platelet Count 254 130-400 K/uL Mean Platelet Volume 9.6 7.4-10.4 fL Neutrophils (%) (Auto) 81.5 % Lymphocytes (%) (Auto) 7.5 % Monocytes (%) (Auto) 10.0 % Eosinophils (%) (Auto) 0.6 % Basophils (%) (Auto) 0.1 % Neutrophils # (Auto) 5.84 1.4-6.5 K/uL Lymphocytes # (Auto) 0.54 1.2-3.4 K/uL Monocytes # (Auto) 0.72 0.11-0.59 K/uL Eosinophils # (Auto) 0.04 0-0.5 K/uL Basophils # (Auto) 0.01 0-0.2 K/uL RDW Standard Deviation 53.3 36.4-46.3 fL RDW Coefficient of Variation 17.1 11.5-14.5 % Immature Granulocyte % (Auto) 0.3 % Immature Granulocyte # (Auto) 0.02 0.00-0.02 K/uL Prothrombin Time 11.0 9.0-12.0 SECONDS Prothromb Time International Ratio 1.0 0.9-1.1 Activated Partial Thromboplast Time 23.1 21.0-31.0 SECONDS Partial Thromboplastin Ratio 0.9 Sodium Level 139 136-145 mmol/L Potassium Level 3.9 3.5-5.1 mmol/L Chloride Level 104 98-107 mmol/L Carbon Dioxide Level 29 21-32 mmol/L Anion Gap 6.0 3-11 mmol/L Blood Urea Nitrogen 25 7-18 mg/dl Creatinine 0.80 0.60-1.40 mg/dl Est Creatinine Clear Calc Drug Dose 155.5 ml/min Estimated GFR () 112.5 Estimated GFR (Non- 97.1 BUN/Creatinine Ratio 31.4 10-20 Random Glucose 138 70-99 mg/dl Calcium Level 8.6 8.5-10.1 mg/dl Magnesium Level 2.4 1.8-2.4 mg/dl Total Bilirubin 0.5 0.2-1 mg/dl Direct Bilirubin 0.2 0-0.2 mg/dl Aspartate Amino Transf (AST/SGOT) 27 15-37 U/L Alanine Aminotransferase (ALT/SGPT) 73 12-78 U/L Alkaline Phosphatase 53 45-117 U/L Total Protein 7.6 6.4-8.2 gm/dl Albumin 3.6 3.4-5.0 gm/dl Test 08/15/16 05:59 Range/Units Bedside Glucose 124 70-99 mg/dl Microbiology Results 08/14/16 C.difficile Toxin B Gene (PCR) - Final, Complete No C. difficile toxin B gene detected 08/14/16 Shiga Toxin Test, Received Pending 08/14/16 Stool Culture, Received Pending Assessment and Plan 61 yo M recently d/c from the hospital for an admission on Aug 062016 for SOB and CHF exacerbation. During that admission he was diuresed approx 20 pounds worth of water weight. He was admitted to [facility] for rehab and after a short period of time he developed N&V and what looked like blood in his stool. Because of the recent admission and Heparin for DVT prophylaxis he was sent back to the hospital. He was found to have a pseudoobstruction and placed on NPO with NG tube. Pseudoobstruction - NG placed on intermittent suction- held for now - if able to tolerate PO throughout the day will restart PO medications - gentle hydration with NSS KCL 20 @ 50 cc/h - CT with IV and oral contrast of abd - Consult GI - appreciate input - PT/ OT to encourage ambulation Possible lower GI bleed - hemmoccult positive - C diff and stool cultures - C Diff negative - Not at risk of ischemic colitis - no h/o atherosclerotic ds. closely follow. - HH q6 and stable- downgrade to tele Thickening of bowel wall - if no emergent colonoscopy required will arrange for outpt Chronic diastolic HF - Will change Lasix PO to 20 mg IV while he is NPO - Will put back on Lasix 40 mg daily once able to tolerate PO - lisinopril, ASA is on hold HTN - PO metoprolol held and patient placed on IV metoprolol for systolic > 160 - transition once tolerating PO DMII - Insulin ISS - metformin held Parkinson's - continue Sinemet, neural stimulator noted Depression - fluoxetine once tolerating PO DVT SCD Discussed care with brother, Richard and questions were answered, brother provided code word Continued [facility] stay due to: inadequate po fluid intake Discharge planning: uncertain Reviewed: Pt Seen/Exam by Me History belly feels better today no feeling as miserable Constitutional: denies: fever Respiratory: negative: short of breath Cardiovascular: denies chest pain Gastrointestinal/Abdominal: negative: abdominal pain General Appearance: no apparent distress Respiratory: lungs clear, no respiratory distress Cardiovascular: regular rate, rhythm Gastrointestinal: normal bowel sounds, non tender, soft, other (NG in place) Neurologic/Psychiatric: alert, oriented x 3, other (slow speech) Skin Characteristics: warm/dry Assessment/Plan Resident Physician Supervision Note: I was present with Dr. Choi in bedside. I verified the burch history and physical, reviewed labs and image studies, discussed the case with the resident and agree with the findings and care plan.
[2016-08-15] MEDS ORDERED: OPTIRAY 320 IV PRN (11:00)
[2016-08-15 11:16] LABS: HEMATOCRIT 37.9 % (42-52)
--- NOTE | 2016-08-15 12:26 | DIAGNOSTIC IMAGING REPORT ---
ABDOMEN AND PELVIS CT WITH IV AND ORAL CONTRAST CT DOSE: 1378.35 mGycm HISTORY: Generalized abdominal pain. TECHNIQUE: Multiaxial CT images of the abdomen and pelvis were performed following the use of intravenous and oral contrast. COMPARISON STUDY: Abdomen and pelvis CT 08/14/2016. FINDINGS: Trace pericardial effusion, unchanged. Right hilar lymphadenopathy and a few subcentimeter pericardial lymph nodes remain unchanged. Nasogastric tube terminates in the proximal stomach. A few stable subcentimeter bibasilar nodules. Largest in the right middle lobe measures 7 mm. No pneumoperitoneum. No pneumatosis.] Hip arthroplasty. Left hip resurfacing. Metallic artifact results in near nondiagnostic evaluation of the deep pelvic structures. The liver, gallbladder, spleen, adrenal glands, and pancreas are unremarkable. Stable prominent periportal lymph nodes. Multiple subcentimeter retroperitoneal lymph nodes are not significantly changed. The kidneys enhance normally. No hydronephrosis. Prominent left external iliac lymph nodes are again noted. Dominant lymph node measures 17 x 14 mm. No enlarging lymph nodes. Evaluation of the bladder is nondiagnostic due to the metallic artifact. Focal circumferential thickening within the mid to distal sigmoid colon best seen on image 404. The area of thickening measures 3.7 cm in length. This is highly suspicious for a colonic mass. Proximal to this the large bowel is distended and filled with gas and stool. The distended large bowel measures up to 6.7 cm in diameter. There is also stool within the distal sigmoid colon. Normal appendix. Contrast reaches the transverse colon. Small bowel is normal in caliber. IMPRESSION: 1. Redemonstration of the focal circumferential thickening within the mid to distal sigmoid colon which measures 3.7 cm in length. This is highly suspicious for a colonic mass. Proximal to this area the large bowel is mildly distended and filled with gas and stool. Therefore, this favors a partial large bowel obstruction. Colonoscopy is recommended for confirmation. 2. Multiple borderline enlarged retroperitoneal and left pelvic lymph nodes. There is also partially visualized right hilar lymphadenopathy. This is nonspecific but could represent a neoplastic process. Electronically signed by: Danyel Beaver M.D. 08/15/2016 12:25 PM Dictated Date/Time: 08/15/2016 12:12 PM
[2016-08-15 15:24] VITALS: BP 132/91; PULSE 104; TEMP 36.9; O2SAT 96
--- NOTE | 2016-08-15 18:12 | Gastroenterology Progress Note ---
Progress Note Date of Service: Aug 15, 2016 Subjective Pt evaluation today including: conversation w/ patient, physical exam, chart review, lab review, review of studies, conversation w/ hematology oncology consultant Patient resting comfortably in bed at time I saw him. Denies any fevers, chills , nausea, or vomiting. He states that he has not had any melena or hematochezia. I informed him of the CT Abd/pelvis results (sigmoid mass). He is agreeable to undergo colonoscopy tomorrow. Review of Systems Constitutional: No fever, No chills Respiratory: No cough, No sputum, No shortness of breath Cardiac: No palpitations Abdomen: No pain, No nausea, No vomiting, No GI bleeding, No dysphagia, No odynophagia, No jaundice Male : No dysuria, No hematuria Skin: No rash Medications Current Inpatient Medications Medications (Trade) Dose Ordered Sig/Parris Route Start Time Stop Time Status Last Admin Dose Admin Potassium Chloride/Sodium Chloride 1,000 ml @ 80 mls/hr [id number] IV 08/14/16 05:09 09/13/16 05:08 08/15/16 06:23 80 MLS/HR Acetaminophen (Tylenol Tab) 650 mg Q4H PRN PO 08/14/16 05:15 09/13/16 05:14 Future Hold Ondansetron HCl (Zofran Inj) 4 mg Q6H PRN IV 08/14/16 05:15 09/13/16 05:14 Glucose (Glucose 40% Gel) UD PRN PO 08/14/16 05:15 09/13/16 05:14 Glucose (Glucose Chew Tab) 1 tabs UD PRN PO 08/14/16 05:15 09/13/16 05:14 Dextrose (Dextrose 50% 50ML Syringe) 50 ml UD PRN IV 08/14/16 05:15 09/13/16 05:14 Glucagon (Glucagon Inj) 1 mg UD PRN SQ 08/14/16 05:15 09/13/16 05:14 Carbidopa/Levodopa (Sinemet 25/ 100MG Tab) 1 tab QID@0800,1200,1600,2000 PO 08/14/16 08:00 09/13/16 07:59 Future Hold Miscellaneous (Iv Fluids Completed) 1 ea PRN PRN N/A 08/14/16 05:30 08/14/17 05:29 Furosemide 20 mg/ Syringe 2 ml @ 4 mls/min DAILY IV 08/14/16 09:00 09/13/16 08:59 08/15/16 08:49 4 MLS/MIN Metoprolol Tartrate (Lopressor Iv) 5 mg Q6 PRN IV 08/14/16 12:00 09/13/16 11:59 Insulin Aspart (novoLOG ASPART) SLIDING SCALE If C... Q6 SC 08/14/16 12:00 09/13/16 06:29 Miconazole Nitrate (Desenex Powder) 1 appln PRN PRN EXT 08/14/16 09:30 09/13/16 09:29 08/14/16 14:04 1 APPLN Ioversol (Optiray 320) 125 ml UD PRN IV 08/15/16 11:00 08/19/16 10:59 Polyethylene Glycol/ Electrolytes (Golytely Soln) 1 dose Q15M PO 08/15/16 20:00 08/15/16 23:46 Objective Vital Signs Date Time Temp Pulse Resp B/P (MAP) Pulse Ox O2 Delivery O2 Flow Rate FiO2 08/15/16 16:18 Room Air 08/15/16 15:24 36.9 104 20 132/91 (105) 96 Room Air 08/15/16 08:00 Room Air 08/15/16 07:35 36.6 104 16 162/76 (104) 94 Room Air 08/15/16 04:35 36.6 104 18 166/91 (116) 94 Room Air 08/15/16 04:00 Room Air 08/15/16 00:00 Room Air 08/14/16 23:03 37.0 104 18 161/93 (115) 96 Room Air 08/14/16 20:31 Room Air 08/14/16 19:13 36.9 112 20 143/89 (107) 96 Room Air Physical Exam General Appearance: + obese Eyes: PERRL, EOMI ENT: hearing grossly normal Respiratory/Chest: lungs clear Cardiovascular: regular rate, rhythm Abdomen: non tender, soft Neurologic/Psych: alert, oriented x 3 Laboratory Results Last 24 Hours Test 08/14/16 19:45 08/14/16 23:00 08/14/16 23:54 08/15/16 05:11 Stool Occult Blood POSITIVE Hemoglobin 11.7 g/dL 11.9 g/dL Hematocrit 39.0 % 38.8 % Bedside Glucose 124 mg/dl White Blood Count 7.17 K/uL Red Blood Count 4.56 M/uL Mean Corpuscular Volume 85.1 fL Mean Corpuscular Hemoglobin 26.1 pg Mean Corpuscular Hemoglobin Concent 30.7 g/dl Platelet Count 254 K/uL Mean Platelet Volume 9.6 fL Neutrophils (%) (Auto) 81.5 % Lymphocytes (%) (Auto) 7.5 % Monocytes (%) (Auto) 10.0 % Eosinophils (%) (Auto) 0.6 % Basophils (%) (Auto) 0.1 % Neutrophils # (Auto) 5.84 K/uL Lymphocytes # (Auto) 0.54 K/uL Monocytes # (Auto) 0.72 K/uL Eosinophils # (Auto) 0.04 K/uL Basophils # (Auto) 0.01 K/uL RDW Standard Deviation 53.3 fL RDW Coefficient of Variation 17.1 % Immature Granulocyte % (Auto) 0.3 % Immature Granulocyte # (Auto) 0.02 K/uL Prothrombin Time 11.0 SECONDS Prothromb Time International Ratio 1.0 Activated Partial Thromboplast Time 23.1 SECONDS Partial Thromboplastin Ratio 0.9 Sodium Level 139 mmol/L Potassium Level 3.9 mmol/L Chloride Level 104 mmol/L Carbon Dioxide Level 29 mmol/L Anion Gap 6.0 mmol/L Blood Urea Nitrogen 25 mg/dl Creatinine 0.80 mg/dl Est Creatinine Clear Calc Drug Dose 155.5 ml/min Estimated GFR () 112.5 Estimated GFR (Non- 97.1 BUN/Creatinine Ratio 31.4 Random Glucose 138 mg/dl Calcium Level 8.6 mg/dl Magnesium Level 2.4 mg/dl Total Bilirubin 0.5 mg/dl Direct Bilirubin 0.2 mg/dl Aspartate Amino Transf (AST/SGOT) 27 U/L Alanine Aminotransferase (ALT/SGPT) 73 U/L Alkaline Phosphatase 53 U/L Total Protein 7.6 gm/dl Albumin 3.6 gm/dl Test 08/15/16 05:59 08/15/16 11:07 08/15/16 11:59 08/15/16 17:55 Bedside Glucose 124 mg/dl 136 mg/dl 123 mg/dl Hemoglobin 11.3 g/dL Hematocrit 37.9 % Assessment and Plan Assessment: 61 yo CM who presented with nausea, vomiting, and anemia, and was subsequently found to have abnormal CT abd/pelvis. Plan: NPO after midnight. Chana bowel prep tonight Colonoscopy in the AM
[2016-08-15 19:55] VITALS: BP 150/94; PULSE 103; TEMP 36.9; O2SAT 95
[2016-08-15] MEDS: LAVAGE SOLUTION 4000ML PO SCH ×14 (20:18→23:49)
[2016-08-15 23:09] VITALS: BP 163/91; PULSE 101; TEMP 36.5; O2SAT 92
[2016-08-16] VITALS (7 sets, daily range): BP systolic 127–176; BP diastolic 82–96; PULSE 89–110; TEMP 36.6–36.9; O2SAT 92–98
[2016-08-16] MEDS: LAVAGE SOLUTION 4000ML PO SCH ×2 (00:13→00:15)
[2016-08-16] MEDS: INSULIN ASPART 100 UNITS/ML 3 ML PEN SC SCH ×5 (06:00→21:00)
[2016-08-16 06:59] LABS: BASO % 0.3 %; BASO ABS # 0.02 K/uL (0-0.2); COMPLETE YES; EOS % 1.1 %; HEMATOCRIT 37.5 % (42-52); IG% 0.3 %; LYMPH % 11.1 %; LYMPH ABS # 0.83 K/uL (1.2-3.4); MEAN CELL VOLUME 83.9 fL (80-100); MEAN CORPUSCULAR HEMOGLOBIN 24.8 pg (25-34); MEAN CORPUSCULAR HGB CONC 29.6 g/dl (32-36); MEAN PLATELET VOLUME 9.7 fL (7.4-10.4); MONO % 10.1 %; NEUT % 77.1 %; PLATELET COUNT 291 K/uL (130-400); RED BLOOD COUNT 4.47 M/uL (4.7-6.1); WHITE BLOOD COUNT 7.45 K/uL (4.8-10.8)
[2016-08-16 07:13] LABS: PARTIAL THROMBOPLASTIN RATIO 0.9; PROTHROMBIN TIME (PATIENT) 11.2 SECONDS (9.0-12.0)
[2016-08-16] MEDS: NSS + 20MEQ KCL 1000ML 1,000 ML IV SCH ×2 (07:30→20:18)
[2016-08-16 07:49] LABS: BUN/CREATININE RATIO 32.2 (10-20); CALCIUM 8.4 mg/dl (8.5-10.1); CREATININE 0.65 mg/dl (0.60-1.40); MAGNESIUM 2.4 mg/dl (1.8-2.4); POTASSIUM 3.6 mmol/L (3.5-5.1)
--- NOTE | 2016-08-16 07:58 | Family Medicine Progress Note ---
Progress Note Date of Service Aug 16, 2016. Subjective Pt evaluation today including: conversation w/ patient, physical exam, chart review, lab review, review of studies Pain: 2/10 PO Intake: WNL Voiding: no voiding problems Patient is quite un comfortable this morning because he had taken the Go Lytely for colonoscopy prep last night and has not had a bowel movement. He reflects understanding as to why the colonoscopy is to be done today. Constitutional: No fever Eyes: No worsening of vision ENT: No hearing loss Respiratory: No cough, No sputum, No wheezing, No shortness of breath, No dyspnea on exertion Cardiovascular: No chest pain Abdomen: + pain, + constipation, No nausea, No vomiting, No diarrhea, No GI bleeding Musculoskeletal: No joint pain, No muscle pain Neurologic: + weakness, + balance problems Psychiatric: No depression symptoms Endo: No fatigue Medications Medications Administered Medications (Trade) Dose Ordered Sig/Parris Route Start Time Stop Time Status Last Admin Dose Admin Potassium Chloride/Sodium Chloride 1,000 ml @ 80 mls/hr [id number] IV 08/14/16 05:09 09/13/16 05:08 08/16/16 07:30 80 MLS/HR Insulin Aspart (novoLOG ASPART) SLIDING SCALE If C... ACHS SC 08/14/16 06:30 08/14/16 09:13 DC 08/14/16 08:37 1 UNITS Furosemide 20 mg/ Syringe 2 ml @ 4 mls/min DAILY IV 08/14/16 09:00 09/13/16 08:59 Future Hold 08/15/16 08:49 4 MLS/MIN Metoprolol Tartrate (Lopressor Iv) 5 mg Q6 PRN IV 08/14/16 12:00 09/13/16 11:59 08/16/16 07:30 5 MG Miconazole Nitrate (Desenex Powder) 1 appln PRN PRN EXT 08/14/16 09:30 09/13/16 09:29 08/14/16 14:04 1 APPLN Polyethylene Glycol/ Electrolytes (Golytely Soln) 1 dose Q15M PO 08/15/16 20:00 08/15/16 23:46 DC 08/16/16 00:15 1 DOSE Objective Vital Signs Date Time Temp Pulse Resp B/P (MAP) Pulse Ox O2 Delivery O2 Flow Rate FiO2 08/16/16 07:30 110 176/96 08/16/16 07:23 36.9 110 18 176/96 (122) 92 Room Air 08/16/16 04:24 36.9 89 20 130/84 (99) 96 Room Air 08/16/16 00:05 Room Air 08/15/16 23:09 36.5 101 18 163/91 (115) 92 Room Air 08/15/16 19:55 36.9 103 18 150/94 (112) 95 Room Air 08/15/16 16:18 Room Air 08/15/16 15:24 36.9 104 20 132/91 (105) 96 Room Air 08/15/16 08:00 Room Air Physical Exam General Appearance: + mild distress, + obese Eyes: normal inspection ENT: normal ENT inspection Neck: supple Respiratory/Chest: normal breath sounds, no respiratory distress, no accessory muscle use, + decreased breath sounds (bilat bases) Cardiovascular: regular rate, rhythm, no murmur Abdomen: normal bowel sounds, soft, + distended, + tenderness (uncomfortable with palpation) Extremities: normal range of motion, non-tender, normal inspection, no pedal edema, no calf tenderness Neurologic/Psychiatric: alert, oriented x 3, + pertinent finding (flat affect, tremor noted left LE) Skin: normal color, warm/dry, no rash Lymphatic: no adenopathy Laboratory Results Results Past 24 Hours Test 08/15/16 11:07 08/15/16 11:59 08/15/16 17:55 08/15/16 23:57 Range/Units Hemoglobin 11.3 14.0-18.0 g/dL Hematocrit 37.9 42-52 % Bedside Glucose 136 123 121 70-99 mg/dl Test 08/16/16 05:59 08/16/16 06:07 Range/Units Bedside Glucose 125 70-99 mg/dl White Blood Count 7.45 4.8-10.8 K/uL Red Blood Count 4.47 4.7-6.1 M/uL Hemoglobin 11.1 14.0-18.0 g/dL Hematocrit 37.5 42-52 % Mean Corpuscular Volume 83.9 80-100 fL Mean Corpuscular Hemoglobin 24.8 25-34 pg Mean Corpuscular Hemoglobin Concent 29.6 32-36 g/dl Platelet Count 291 130-400 K/uL Mean Platelet Volume 9.7 7.4-10.4 fL Neutrophils (%) (Auto) 77.1 % Lymphocytes (%) (Auto) 11.1 % Monocytes (%) (Auto) 10.1 % Eosinophils (%) (Auto) 1.1 % Basophils (%) (Auto) 0.3 % Neutrophils # (Auto) 5.75 1.4-6.5 K/uL Lymphocytes # (Auto) 0.83 1.2-3.4 K/uL Monocytes # (Auto) 0.75 0.11-0.59 K/uL Eosinophils # (Auto) 0.08 0-0.5 K/uL Basophils # (Auto) 0.02 0-0.2 K/uL RDW Standard Deviation 52.3 36.4-46.3 fL RDW Coefficient of Variation 17.1 11.5-14.5 % Immature Granulocyte % (Auto) 0.3 % Immature Granulocyte # (Auto) 0.02 0.00-0.02 K/uL Prothrombin Time 11.2 9.0-12.0 SECONDS Prothromb Time International Ratio 1.0 0.9-1.1 Activated Partial Thromboplast Time 24.0 21.0-31.0 SECONDS Partial Thromboplastin Ratio 0.9 Sodium Level 137 136-145 mmol/L Potassium Level 3.6 3.5-5.1 mmol/L Chloride Level 102 98-107 mmol/L Carbon Dioxide Level 26 21-32 mmol/L Anion Gap 9.0 3-11 mmol/L Blood Urea Nitrogen 21 7-18 mg/dl Creatinine 0.65 0.60-1.40 mg/dl Est Creatinine Clear Calc Drug Dose 191.4 ml/min Estimated GFR () 122.6 Estimated GFR (Non- 105.7 BUN/Creatinine Ratio 32.2 10-20 Random Glucose 118 70-99 mg/dl Calcium Level 8.4 8.5-10.1 mg/dl Magnesium Level 2.4 1.8-2.4 mg/dl Total Bilirubin 0.5 0.2-1 mg/dl Direct Bilirubin 0.1 0-0.2 mg/dl Aspartate Amino Transf (AST/SGOT) 18 15-37 U/L Alanine Aminotransferase (ALT/SGPT) 55 12-78 U/L Alkaline Phosphatase 51 45-117 U/L Total Protein 7.1 6.4-8.2 gm/dl Albumin 3.5 3.4-5.0 gm/dl Assessment and Plan 61 yo M recently d/c from the hospital for an admission on Aug 062016 for SOB and CHF exacerbation. During that admission he was diuresed approx 20 pounds worth of water weight. He was admitted to [facility] for rehab and after a short period of time he developed N&V and what looked like blood in his stool. Because of the recent admission and Heparin for DVT prophylaxis he was sent back to the hospital. He was found to have a pseudoobstruction and placed on NPO with NG tube. CT abd was repeated with oral contrast once the patient was tolerating PO. It was concerning for potential malignancy and partial bowel obstruction so it was decided a colonoscopy would be completed. parital bowel obstruction/ bowel wall thickening concerning for malignancy - restart PO medications - plan is for colonoscopy today, will discuss patient's inability to have BM with Dr Rhoades - gentle hydration with NSS KCL 20 @ 50 cc/h - CT with IV and oral contrast of abd- reflective of bowel wall thickening and lymphadenopathy concerning for mass - Consult GI - appreciate input Possible lower GI bleed - hemmoccult positive - C diff and stool cultures - C Diff negative - hemodynamically stable, downgraded to med/ surg Chronic diastolic HF - Lasix 40 mg PO daily - lisinopril cont'd - ASA still on hold HTN - Continue Metoprolol 25 mg daily DMII - Insulin ISS - metformin held Parkinson's - continue Sinemet, neural stimulator noted Depression - fluoxetine cont'd DVT SCD Continued [facility] stay due to: other Discharge planning: uncertain History sitting in chair. awaiting colonoscopy today denies any concerns. abdominal pain is resolved Constitutional: denies: fever Respiratory: negative: short of breath Cardiovascular: denies chest pain Gastrointestinal/Abdominal: negative: abdominal pain General Appearance: no apparent distress Respiratory: lungs clear, no respiratory distress Cardiovascular: regular rate, rhythm Gastrointestinal: normal bowel sounds, non tender, soft Neurologic/Psychiatric: alert, oriented x 3 Skin Characteristics: warm/dry Assessment/Plan Resident Physician Supervision Note: I was present with Dr. Choi in bedside. I verified the burch history and physical, reviewed labs and image studies, discussed the case with the resident and agree with the findings and care plan.
[2016-08-16] MEDS ORDERED: BISACODYL 10 MG SUPP PR STA (08:11)
[2016-08-16] MEDS ORDERED: NURSING VERBAL MED ORDER ONE ×2 (11:15→15:00)
[2016-08-16] MEDS ORDERED: SOD PHOSPHATE/SOD BIPHOSPHATE ENEMA 132 ML BTL PR STA (11:18)
[2016-08-16] MEDS ORDERED: SOD PHOSPHATE/SOD BIPHOSPHATE ENEMA 132 ML BTL ONE (11:19)
[2016-08-16] MEDS: CARBIDOPA/LEVODOPA 25/100MG TAB PO SCH ×3 (11:42→20:18)
--- NOTE | 2016-08-16 12:57 | Gastroenterology Progress Note ---
Progress Note Date of Service: Aug 16, 2016 Subjective Pt evaluation today including: conversation w/ patient, physical exam, chart review, lab review, review of studies Patient tolerated bowel prep. He states he had multiple bloody bowel movements. Denies any abdominal pain at this time. Medications Current Inpatient Medications Medications (Trade) Dose Ordered Sig/Parris Route Start Time Stop Time Status Last Admin Dose Admin Potassium Chloride/Sodium Chloride 1,000 ml @ 80 mls/hr [id number] IV 08/14/16 05:09 09/13/16 05:08 08/16/16 07:30 80 MLS/HR Acetaminophen (Tylenol Tab) 650 mg Q4H PRN PO 08/14/16 05:15 09/13/16 05:14 Future hold Ondansetron HCl (Zofran Inj) 4 mg Q6H PRN IV 08/14/16 05:15 09/13/16 05:14 Glucose (Glucose 40% Gel) UD PRN PO 08/14/16 05:15 09/13/16 05:14 Glucose (Glucose Chew Tab) 1 tabs UD PRN PO 08/14/16 05:15 09/13/16 05:14 Dextrose (Dextrose 50% 50ML Syringe) 50 ml UD PRN IV 08/14/16 05:15 09/13/16 05:14 Glucagon (Glucagon Inj) 1 mg UD PRN SQ 08/14/16 05:15 09/13/16 05:14 Carbidopa/Levodopa (Sinemet 25/ 100MG Tab) 1 tab QID@0800,1200,1600,2000 PO 08/14/16 08:00 09/13/16 07:59 Future hold Miscellaneous (Iv Fluids Completed) 1 ea PRN PRN N/A 08/14/16 05:30 08/14/17 05:29 Furosemide 20 mg/ Syringe 2 ml @ 4 mls/min DAILY IV 08/14/16 09:00 09/13/16 08:59 Future Hold 08/15/16 08:49 4 MLS/MIN Metoprolol Tartrate (Lopressor Iv) 5 mg Q6 PRN IV 08/14/16 12:00 09/13/16 11:59 08/16/16 07:30 5 MG Insulin Aspart (novoLOG ASPART) SLIDING SCALE If C... Q6 SC 08/14/16 12:00 09/13/16 06:29 Miconazole Nitrate (Desenex Powder) 1 appln PRN PRN EXT 08/14/16 09:30 09/13/16 09:29 08/14/16 14:04 1 APPLN Ioversol (Optiray 320) 125 ml UD PRN IV 08/15/16 11:00 08/19/16 10:59 Fluoxetine HCl (Prozac Cap) 20 mg QAM PO 08/16/16 09:00 09/15/16 08:59 Furosemide (Lasix Tab) 40 mg QAM PO 08/16/16 09:00 09/15/16 08:59 Lisinopril (Zestril Tab) 5 mg QAM PO 08/16/16 09:00 09/15/16 08:59 Metoprolol Succinate (Toprol Xl Tab) 25 mg QAM PO 08/16/16 09:00 09/15/16 08:59 Objective Vital Signs Date Time Temp Pulse Resp B/P (MAP) Pulse Ox O2 Delivery O2 Flow Rate FiO2 08/16/16 12:36 36.8 90 18 160/96 (117) 96 08/16/16 08:00 Room Air 08/16/16 07:30 110 176/96 08/16/16 07:23 36.9 110 18 176/96 (122) 92 Room Air 08/16/16 04:24 36.9 89 20 130/84 (99) 96 Room Air 08/16/16 00:05 Room Air 08/15/16 23:09 36.5 101 18 163/91 (115) 92 Room Air 08/15/16 19:55 36.9 103 18 150/94 (112) 95 Room Air 08/15/16 16:18 Room Air 08/15/16 15:24 36.9 104 20 132/91 (105) 96 Room Air Physical Exam General Appearance: + pertinent finding (Obese) Respiratory/Chest: lungs clear Cardiovascular: regular rate, rhythm Abdomen: non tender, soft Laboratory Results Last 24 Hours Test 08/15/16 17:55 08/15/16 23:57 08/16/16 05:59 08/16/16 06:07 Bedside Glucose 123 mg/dl 121 mg/dl 125 mg/dl White Blood Count 7.45 K/uL Red Blood Count 4.47 M/uL Hemoglobin 11.1 g/dL Hematocrit 37.5 % Mean Corpuscular Volume 83.9 fL Mean Corpuscular Hemoglobin 24.8 pg Mean Corpuscular Hemoglobin Concent 29.6 g/dl Platelet Count 291 K/uL Mean Platelet Volume 9.7 fL Neutrophils (%) (Auto) 77.1 % Lymphocytes (%) (Auto) 11.1 % Monocytes (%) (Auto) 10.1 % Eosinophils (%) (Auto) 1.1 % Basophils (%) (Auto) 0.3 % Neutrophils # (Auto) 5.75 K/uL Lymphocytes # (Auto) 0.83 K/uL Monocytes # (Auto) 0.75 K/uL Eosinophils # (Auto) 0.08 K/uL Basophils # (Auto) 0.02 K/uL RDW Standard Deviation 52.3 fL RDW Coefficient of Variation 17.1 % Immature Granulocyte % (Auto) 0.3 % Immature Granulocyte # (Auto) 0.02 K/uL Prothrombin Time 11.2 SECONDS Prothromb Time International Ratio 1.0 Activated Partial Thromboplast Time 24.0 SECONDS Partial Thromboplastin Ratio 0.9 Sodium Level 137 mmol/L Potassium Level 3.6 mmol/L Chloride Level 102 mmol/L Carbon Dioxide Level 26 mmol/L Anion Gap 9.0 mmol/L Blood Urea Nitrogen 21 mg/dl Creatinine 0.65 mg/dl Est Creatinine Clear Calc Drug Dose 191.4 ml/min Estimated GFR () 122.6 Estimated GFR (Non- 105.7 BUN/Creatinine Ratio 32.2 Random Glucose 118 mg/dl Calcium Level 8.4 mg/dl Magnesium Level 2.4 mg/dl Total Bilirubin 0.5 mg/dl Direct Bilirubin 0.1 mg/dl Aspartate Amino Transf (AST/SGOT) 18 U/L Alanine Aminotransferase (ALT/SGPT) 55 U/L Alkaline Phosphatase 51 U/L Total Protein 7.1 gm/dl Albumin 3.5 gm/dl Test 08/16/16 11:45 Bedside Glucose 133 mg/dl Assessment and Plan Assessment: 61 yo CM who presented with nausea, vomiting, and anemia, and was subsequently found to have abnormal CT abd/pelvis. Plan: Proceed with colonoscopy
[2016-08-16] MEDS ORDERED: FENTANYL CITRATE INJ 50 MCG/1 ML 2 ML VIAL ONE (13:23)
[2016-08-16] MEDS ORDERED: ENDOSCOPIC MARKER 5 ML SYR ONE ×2 (14:08→14:13)
[2016-08-16] MEDS ORDERED: LIDOCAINE HCL 2% 2 ML VIAL (20MG/ML) ONE (14:14)
[2016-08-16] MEDS ORDERED: PROPOFOL IV EMULSION 10 MG/ML 20 ML VIAL IV ONE ×2 (14:14)
--- NOTE | 2016-08-16 14:30 | GI REPORT ---
Procedure Date: 08/16/2016 1:16 PM Procedure: Colonoscopy Indications: Abnormal CT of the GI tract Medicines: Monitored Anesthesia Care Complications: No immediate complications. Estimated Blood Loss: Estimated blood loss: none. Procedure: Pre-Anesthesia Assessment: - Prior to the procedure, a History and Physical was performed, and patient medications and allergies were reviewed. The patient's tolerance of previous anesthesia was also reviewed. The risks and benefits of the procedure and the sedation options and risks were discussed with the patient. All questions were answered, and informed consent was obtained. Prior Anticoagulants: The patient has taken aspirin, last dose was 2 days prior to procedure. ASA Grade Assessment: III - A patient with severe systemic disease. After reviewing the risks and benefits, the patient was deemed in satisfactory condition to undergo the procedure. After I obtained informed consent, the scope was passed under direct vision. Throughout the procedure, the patient's blood pressure, pulse, and oxygen saturations were monitored continuously. The Scope was introduced through the anus with the intention of advancing to the ileum. The scope was advanced to the hepatic flexure before the procedure was aborted. Medications were given. The colonoscopy was performed without difficulty. The patient tolerated the procedure well. The quality of the bowel preparation was poor. The rectum was photographed. Findings: A large amount of liquid stool was found in the entire colon, interfering with visualization. Lavage of the area was performed using a large amount, resulting in incomplete clearance with fair visualization. An infiltrative partially obstructing medium-sized mass was found in the sigmoid colon. The mass was circumferential. The mass measured five cm in length. In addition, its diameter measured twelve mm. Oozing was present. Biopsies were taken with a cold forceps for histology. Area was tattooed with an injection of 5 mL of Maggie ink. Impression: - Preparation of the colon was poor. - Stool in the entire examined colon. 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 Biopsied. Tattooed. Recommendation: - [facility]. - Await pathology results. - Check CEA today. Kevin Rhoades DO 08/16/2016 2:30:12 PM This report has been signed electronically. Note Initiated On: 08/16/2016 1:16 PM I attest to the content of the Intraoperative Record and orders documented therein, exceptions below
--- NOTE | 2016-08-16 14:38 | Anesthesiology Progress Note ---
Anesthesia Post Op Note Date & Time Aug 16, 2016 at 14:38 Vital Signs Pain Intensity: 0.0 Vital Signs Past 12 Hours Date Time Temp Pulse Resp B/P (MAP) Pulse Ox O2 Delivery O2 Flow Rate FiO2 08/16/16 14:32 100 16 157/87 (110) 95 Room Air 08/16/16 14:17 98 16 157/82 (107) 97 Room Air 08/16/16 13:32 90 18 98 Room Air 08/16/16 12:53 36.8 97 20 163/92 (115) 95 Room Air 08/16/16 12:36 36.8 90 18 160/96 (117) 96 08/16/16 08:00 Room Air 08/16/16 07:30 110 176/96 08/16/16 07:23 36.9 110 18 176/96 (122) 92 Room Air 08/16/16 04:24 36.9 89 20 130/84 (99) 96 Room Air Notes Mental Status: alert / awake / arousable, participated in evaluation Pt Amnestic to Procedure: Yes Nausea / Vomiting: adequately controlled Pain: adequately controlled Airway Patency, RR, SpO2: stable & adequate BP & HR: stable & adequate Hydration State: stable & adequate Anesthetic Complications: no major complications apparent
[2016-08-16] MEDS: LISINOPRIL 5 MG TAB PO SCH (15:20)
[2016-08-16] MEDS: FUROSEMIDE 40 MG TAB PO SCH (15:20)
[2016-08-16] MEDS: FLUOXETINE HCL 20 MG CAP PO SCH (15:20)
[2016-08-16] MEDS: METOPROLOL SUCC 25MG EXT REL TAB PO SCH (15:21)
[2016-08-17 06:16] LABS: BASO % 0.3 %; BASO ABS # 0.02 K/uL (0-0.2); COMPLETE YES; HEMATOCRIT 34.7 % (42-52); IG% 0.3 %; LYMPH % 11.4 %; LYMPH ABS # 0.76 K/uL (1.2-3.4); MEAN CELL VOLUME 84.6 fL (80-100); MEAN CORPUSCULAR HEMOGLOBIN 25.4 pg (25-34); MEAN PLATELET VOLUME 9.6 fL (7.4-10.4); MONO % 10.2 %; NEUT % 74.8 %; PLATELET COUNT 233 K/uL (130-400); WHITE BLOOD COUNT 6.68 K/uL (4.8-10.8)
[2016-08-17 06:25] LABS: INR 1.1 (0.9-1.1); PARTIAL THROMBOPLASTIN RATIO 0.9; PROTHROMBIN TIME (PATIENT) 11.5 SECONDS (9.0-12.0)
[2016-08-17 06:53] LABS: BUN/CREATININE RATIO 20.4 (10-20); CALCIUM 8.2 mg/dl (8.5-10.1); CREATININE 0.68 mg/dl (0.60-1.40); MAGNESIUM 2.3 mg/dl (1.8-2.4); POTASSIUM 3.9 mmol/L (3.5-5.1)
[2016-08-17 07:23] VITALS: BP 175/78; PULSE 86; TEMP 36.6; O2SAT 97
[2016-08-17] MEDS: METOPROLOL SUCC 25MG EXT REL TAB PO SCH (07:31)
[2016-08-17] MEDS: NSS + 20MEQ KCL 1000ML 1,000 ML IV SCH (07:31)
[2016-08-17] MEDS: CARBIDOPA/LEVODOPA 25/100MG TAB PO SCH ×4 (07:32→21:03)
[2016-08-17] MEDS: FLUOXETINE HCL 20 MG CAP PO SCH (07:32)
[2016-08-17] MEDS: LISINOPRIL 5 MG TAB PO SCH (07:33)
[2016-08-17] MEDS: FUROSEMIDE 40 MG TAB PO SCH (07:33)
[2016-08-17] MEDS: INSULIN ASPART 100 UNITS/ML 3 ML PEN SC SCH ×4 (08:15→21:00)
[2016-08-17 10:20] VITALS: BP 103/73; PULSE 92
--- NOTE | 2016-08-17 12:17 | Hospitalist Progress Note ---
Hospitalist Progress Note Date of Service Aug 17, 2016. Subjective tolerated diet this am denies any complains. Constitutional: No fever Respiratory: No shortness of breath Cardiovascular: No chest pain Abdomen: No pain, No nausea Objective Vital Signs Date Time Temp Pulse Resp B/P (MAP) Pulse Ox O2 Delivery O2 Flow Rate FiO2 08/17/16 10:20 92 103/73 (83) 08/17/16 08:00 Room Air 08/17/16 07:23 36.6 86 22 175/78 (110) 97 Room Air 08/17/16 00:05 Room Air 08/16/16 23:58 36.8 98 18 127/82 (97) 95 Room Air 08/16/16 20:05 Room Air 08/16/16 16:11 Room Air 08/16/16 16:09 36.6 95 20 156/90 (112) 95 Room Air 08/16/16 15:19 104 18 168/88 (114) 97 Room Air 08/16/16 14:47 100 16 163/86 (111) 95 Room Air 08/16/16 14:32 100 16 157/87 (110) 95 Room Air 08/16/16 14:17 98 16 157/82 (107) 97 Room Air 08/16/16 13:32 90 18 98 Room Air 08/16/16 12:53 36.8 97 20 163/92 (115) 95 Room Air 08/16/16 12:36 36.8 90 18 160/96 (117) 96 Physical Exam General Appearance: no apparent distress ENT: hearing grossly normal Respiratory/Chest: lungs clear, no respiratory distress Cardiovascular: regular rate, rhythm Abdomen: normal bowel sounds, non tender, soft Neurologic/Psychiatric: alert, oriented x 3, + pertinent finding (speech slow) Laboratory Results Last 24 Hours Test 08/16/16 16:22 08/16/16 16:40 08/16/16 20:39 08/17/16 05:42 Bedside Glucose 120 mg/dl 106 mg/dl Carcinoembryonic Antigen 2.0 ng/ml White Blood Count 6.68 K/uL Red Blood Count 4.10 M/uL Hemoglobin 10.4 g/dL Hematocrit 34.7 % Mean Corpuscular Volume 84.6 fL Mean Corpuscular Hemoglobin 25.4 pg Mean Corpuscular Hemoglobin Concent 30.0 g/dl Platelet Count 233 K/uL Mean Platelet Volume 9.6 fL Neutrophils (%) (Auto) 74.8 % Lymphocytes (%) (Auto) 11.4 % Monocytes (%) (Auto) 10.2 % Eosinophils (%) (Auto) 3.0 % Basophils (%) (Auto) 0.3 % Neutrophils # (Auto) 5.00 K/uL Lymphocytes # (Auto) 0.76 K/uL Monocytes # (Auto) 0.68 K/uL Eosinophils # (Auto) 0.20 K/uL Basophils # (Auto) 0.02 K/uL RDW Standard Deviation 52.9 fL RDW Coefficient of Variation 17.2 % Immature Granulocyte % (Auto) 0.3 % Immature Granulocyte # (Auto) 0.02 K/uL Prothrombin Time 11.5 SECONDS Prothromb Time International Ratio 1.1 Activated Partial Thromboplast Time 23.7 SECONDS Partial Thromboplastin Ratio 0.9 Sodium Level 137 mmol/L Potassium Level 3.9 mmol/L Chloride Level 103 mmol/L Carbon Dioxide Level 31 mmol/L Anion Gap 3.0 mmol/L Blood Urea Nitrogen 14 mg/dl Creatinine 0.68 mg/dl Est Creatinine Clear Calc Drug Dose 182.9 ml/min Estimated GFR () 120.3 Estimated GFR (Non- 103.8 BUN/Creatinine Ratio 20.4 Random Glucose 106 mg/dl Calcium Level 8.2 mg/dl Magnesium Level 2.3 mg/dl Total Bilirubin 0.6 mg/dl Direct Bilirubin 0.1 mg/dl Aspartate Amino Transf (AST/SGOT) 23 U/L Alanine Aminotransferase (ALT/SGPT) 37 U/L Alkaline Phosphatase 46 U/L Total Protein 6.5 gm/dl Albumin 3.0 gm/dl Test 08/17/16 07:22 08/17/16 11:15 Bedside Glucose 97 mg/dl 123 mg/dl Assessment and Plan 61 yo M recently d/c from the hospital for an admission on Aug 062016 for SOB and CHF exacerbation. During that admission he was diuresed approx 20 pounds worth of water weight. He was admitted to [facility] for rehab and after a short period of time he developed N&V and what looked like blood in his stool. Because of the recent admission and Heparin for DVT prophylaxis he was sent back to the hospital. He was found to have a pseudoobstruction and placed on NPO with NG tube. CT abd was repeated with oral contrast once the patient was tolerating PO. It was concerning for potential malignancy and partial bowel obstruction. Colonoscopy done yesterday showed the mass. parital bowel obstruction/ bowel wall thickening concerning for malignancy - resolved. Diet advanced and tolerated. - d/c ivf. Lower GI bleed secondary to mass in colon - Biopsy results pending - For Outpatient surgery evaluation - C diff and stool cultures - C Diff negative Chronic diastolic HF - Lasix 40 mg PO daily - lisinopril cont'd - ASA on hold HTN - Continue Metoprolol 25 mg daily DMII - Insulin ISS - metformin held Parkinson's - continue Sinemet, neural stimulator noted Depression - fluoxetine cont'd DVT SCD Anticipate d/c to [facility] once bed available
[2016-08-17] MEDS ORDERED: NURSING VERBAL MED ORDER ONE (12:30)
[2016-08-17 15:05] VITALS: BP 134/71; PULSE 90; TEMP 36.9; O2SAT 96
[2016-08-17 16:00] VITALS: O2SAT 96
[2016-08-17] MEDS: MICONAZOLE NITRATE POWDER 43 GM EXT PRN (21:03)
[2016-08-17 23:31] VITALS: BP 109/74; PULSE 85; TEMP 36.6; O2SAT 93
[2016-08-18 07:14] VITALS: BP 152/93; PULSE 99; TEMP 36.5; O2SAT 95
[2016-08-18] MEDS: FLUOXETINE HCL 20 MG CAP PO SCH (08:01)
[2016-08-18] MEDS: FUROSEMIDE 40 MG TAB PO SCH (08:01)
[2016-08-18] MEDS: CARBIDOPA/LEVODOPA 25/100MG TAB PO SCH ×4 (08:02→20:40)
[2016-08-18] MEDS: LISINOPRIL 5 MG TAB PO SCH (08:02)
[2016-08-18] MEDS: METOPROLOL SUCC 25MG EXT REL TAB PO SCH (08:02)
[2016-08-18] MEDS: INSULIN ASPART 100 UNITS/ML 3 ML PEN SC SCH ×4 (08:05→20:39)
[2016-08-18] MEDS ORDERED: NURSING VERBAL MED ORDER ONE (10:15)
[2016-08-18] MEDS ORDERED: POLYETHYLENE (MIRALAX) 17 GM PACK PO ONE (10:30)
[2016-08-18 15:12] VITALS: BP 143/84; PULSE 98; TEMP 36.4; O2SAT 96
--- NOTE | 2016-08-18 15:14 | Hospitalist Progress Note ---
Hospitalist Progress Note Date of Service Aug 18, 2016. Subjective feels well no abdominal pain hasn't had bowel movement since after colonoscopy Objective Vital Signs Date Time Temp Pulse Resp B/P (MAP) Pulse Ox O2 Delivery O2 Flow Rate FiO2 08/18/16 08:00 CPAP 08/18/16 07:14 36.5 99 20 152/93 (112) 95 Room Air 08/18/16 00:10 CPAP 08/17/16 23:31 36.6 85 16 109/74 (86) 93 BiPAP 08/17/16 16:00 96 Room Air Physical Exam General Appearance: no apparent distress Respiratory/Chest: lungs clear, no respiratory distress Cardiovascular: regular rate, rhythm Abdomen: normal bowel sounds, non tender, soft Neurologic/Psychiatric: alert, oriented x 3 Skin: warm/dry Laboratory Results Last 24 Hours Test 08/17/16 16:30 08/17/16 20:43 08/18/16 07:38 08/18/16 11:37 Bedside Glucose 98 mg/dl 116 mg/dl 128 mg/dl 151 mg/dl Assessment and Plan 61 yo M recently d/c from the hospital for an admission on Aug 062016 for SOB and CHF exacerbation. During that admission he was diuresed approx 20 pounds worth of water weight. He was admitted to [facility] for rehab and after a short period of time he developed N&V and what looked like blood in his stool. Because of the recent admission and Heparin for DVT prophylaxis he was sent back to the hospital. He was found to have a pseudoobstruction and placed on NPO with NG tube. CT abd was repeated with oral contrast once the patient was tolerating PO. It was concerning for potential malignancy and partial bowel obstruction. Colonoscopy done yesterday showed the mass. parital bowel obstruction/ bowel wall thickening concerning for malignancy - resolved. Diet advanced and tolerated. - bowel regimen to prevent obstruction awaiting surgery Lower GI bleed secondary to mass in colon - Biopsy results pending - For Outpatient surgery evaluation - C diff and stool cultures - C Diff negative Chronic diastolic HF - Lasix 40 mg PO daily - lisinopril cont'd - ASA on hold HTN - Continue Metoprolol 25 mg daily DMII - Insulin ISS - metformin held Parkinson's - continue Sinemet, neural stimulator noted Depression - fluoxetine cont'd DVT SCD Anticipate d/c to [facility] once bed available
[2016-08-18 16:00] VITALS: O2SAT 96
[2016-08-18] MEDS: MICONAZOLE NITRATE POWDER 43 GM EXT PRN (20:40)
[2016-08-18 22:54] VITALS: BP 119/78; PULSE 95; TEMP 37.4; O2SAT 93
[2016-08-19] VITALS: O2SAT 96
[2016-08-19 07:38] VITALS: BP 154/84; PULSE 105; TEMP 36.9; O2SAT 94
[2016-08-19] MEDS: FUROSEMIDE 40 MG TAB PO SCH (08:19)
[2016-08-19] MEDS: FLUOXETINE HCL 20 MG CAP PO SCH (08:19)
[2016-08-19] MEDS: INSULIN ASPART 100 UNITS/ML 3 ML PEN SC SCH ×4 (08:19→20:22)
[2016-08-19] MEDS: CARBIDOPA/LEVODOPA 25/100MG TAB PO SCH ×4 (08:19→20:20)
[2016-08-19] MEDS: METOPROLOL SUCC 25MG EXT REL TAB PO SCH ×2 (08:20→20:20)
[2016-08-19] MEDS: LISINOPRIL 5 MG TAB PO SCH (08:20)
--- NOTE | 2016-08-19 08:29 | Discharge Instructions ---
Discharge Instructions Date of Service Aug 19, 2016. Admission Reason for Admission: Colitis, Gi Bleed Discharge Discharge Diagnosis / Problem: Bowel obstruction Discharge Goals Goal(s): Decrease discomfort, Improve function, Increase independence, Improve disease control Activity Recommendations Activity Limitations: per Instructions/Follow-up section . Instructions / Follow-Up Instructions / Follow-Up You were found to have a mass in your colon. A biopsy was taken from this mass and we will be following it up with a report Please follow up with general surgery in order to discuss further treatment, depending on the diagnosis We will be transferring you back to [facility] Current Hospital Diet Patient's current hospital diet: Diabetes Type 2 Diet, AHA Diet (Heart Healthy) Discharge Diet Recommended Diet: AHA Diet (Heart Healthy), Diabetes Type 2 Diet Pending Studies Studies pending at discharge: yes List of pending studies: Pathology report from bowel mass Laboratory Results Hemoglobin A1c Test 08/07/16 02:05 Range/Units Estimated Average Glucose 166 mg/dl Hemoglobin A1c 7.4 H 4.5-5.6 % Lipid Panel Test 08/06/16 20:41 Range/Units Triglycerides Level 115 0-150 mg/dl Cholesterol Level 160 0-200 mg/dl HDL Cholesterol 45 mg/dl Cholesterol/HDL Ratio 3.6 LDL Cholesterol, Calculated 92 mg/dl Medical Emergencies . Who to Call and When: Medical Emergencies: If at any time you feel your situation is an emergency, please call 911 immediately. . Non-Emergent Contact Non-Emergency issues call your: Primary Care Provider . . "Provider Documentation" section prepared by Keaton Monique. . VTE Core Measure Inpt VTE Proph given/why not?: SCD's
[2016-08-19 15:48] VITALS: BP 144/83; PULSE 91; TEMP 37.1; O2SAT 95
--- NOTE | 2016-08-19 16:16 | Surgery Consultation ---
Consultation Date of Consultation: Aug 19, 2016. Attending Physician: Sky Duran MD History of Present Illness pt is a 61 years old male who was admitted to hospital for SOB, CHF, nausea and vomiting. pt had CT scan abd + pelvis which DX sigmoid colon mass, pt had colonoscopy done which shoewed sigmoid colon mass, the biopsy done, pathology is pending, pt is doing better, no nausea, no vomiting, no abdominal pain, he tolerated diet. last BM 3 days ago, pt denies chest pain, no fever. Past Medical/Surgical History Medical Problems: (1) Chronic low back pain Status: Acute (2) Colitis Status: Acute (3) Dyspnea on exertion Status: Acute (4) GI bleed Status: Acute (5) Inability to ambulate due to multiple joints Status: Acute (6) Medical non-compliance Status: Acute (7) Shortness of breath Status: Acute (8) Weakness Status: Acute Family History FHx: cancer Social History Smoking Status: Never Smoker Smokeless Tobacco Use: No Alcohol Use: none Drug Use: none Marital Status: single, Housing Status: lives alone Occupation Status: retired Allergies Coded Allergies: Erythromycin (Unverified Allergy, Unknown, per PCP/cardio note , 08/06/16) Home Medications Scheduled Aspirin (Aspirin EC Low Dose), 81 MG PO DAILY Fluoxetine HCl (Fluoxetine HCl), 20 MG PO DAILY Furosemide (Furosemide), 40 MG PO QAM Levodopa/Carbidopa (Sinemet 25MG/100MG), 1 TAB PO QID@0800,1200,1600,2000 Lisinopril (Lisinopril), 5 MG PO QAM Metformin HCl (Metformin HCl), 500 MG PO BID Metoprolol Succinate (Metoprolol Succinate ER), 75 MG PO QAM Potassium Chloride (Klor-Con M20), 20 MEQ PO QAM Scheduled PRN Tramadol HCl (Tramadol HCl), 50 MG PO Q4H PRN for Pain Current Inpatient Medications Current Inpatient Medications Medications (Trade) Dose Ordered Sig/Parris Route Start Time Stop Time Status Last Admin Dose Admin Acetaminophen (Tylenol Tab) 650 mg Q4H PRN PO 08/14/16 05:15 09/13/16 05:14 Future hold Ondansetron HCl (Zofran Inj) 4 mg Q6H PRN IV 08/14/16 05:15 09/13/16 05:14 Glucose (Glucose 40% Gel) UD PRN PO 08/14/16 05:15 09/13/16 05:14 Glucose (Glucose Chew Tab) 1 tabs UD PRN PO 08/14/16 05:15 09/13/16 05:14 Dextrose (Dextrose 50% 50ML Syringe) 50 ml UD PRN IV 08/14/16 05:15 09/13/16 05:14 Glucagon (Glucagon Inj) 1 mg UD PRN SQ 08/14/16 05:15 09/13/16 05:14 Carbidopa/Levodopa (Sinemet 25/ 100MG Tab) 1 tab QID@0800,1200,1600,2000 PO 08/14/16 08:00 09/13/16 07:59 Future hold 08/19/16 15:42 1 TAB Miscellaneous (Iv Fluids Completed) 1 ea PRN PRN N/A 08/14/16 05:30 08/14/17 05:29 Furosemide 20 mg/ Syringe 2 ml @ 4 mls/min DAILY IV 08/14/16 09:00 09/13/16 08:59 Future Hold 08/15/16 08:49 4 MLS/MIN Metoprolol Tartrate (Lopressor Iv) 5 mg Q6 PRN IV 08/14/16 12:00 09/13/16 11:59 08/16/16 07:30 5 MG Miconazole Nitrate (Desenex Powder) 1 appln PRN PRN EXT 08/14/16 09:30 09/13/16 09:29 08/18/16 20:40 1 APPLN Fluoxetine HCl (Prozac Cap) 20 mg QAM PO 08/16/16 09:00 09/15/16 08:59 08/19/16 08:19 20 MG Furosemide (Lasix Tab) 40 mg QAM PO 08/16/16 09:00 09/15/16 08:59 08/19/16 08:19 40 MG Lisinopril (Zestril Tab) 5 mg QAM PO 08/16/16 09:00 09/15/16 08:59 08/19/16 08:20 5 MG Metoprolol Succinate (Toprol Xl Tab) 25 mg QAM PO 08/16/16 09:00 09/15/16 08:59 08/19/16 08:20 25 MG Insulin Aspart (novoLOG ASPART) SLIDING SCALE If C... ACHS SC 08/16/16 16:30 09/15/16 16:29 08/19/16 11:45 5 UNITS Review of Systems Constitutional: No fever, No chills, No sweats, No weight loss, No weakness, No fatigue, No problem reported Eyes: No worsening of vision, No eye pain, No redness, No discharge, No diplopia, No problem reported ENT: No hearing loss, No unusual epistaxis, No nasal symptoms, No sore throat, No tinnitus, No dental problems, No trouble swallowing, No problem reported Respiratory: No cough, No sputum, No wheezing, No shortness of breath, No dyspnea on exertion, No dyspnea at rest, No hemoptysis, No problem reported Cardiovascular: + problem reported (HTN, CHF), No chest pain, No orthopnea, No PND, No edema, No claudication, No palpitations Abdomen: + nausea, + vomiting Musculoskeletal: No joint pain, No muscle pain, No swelling, No calf pain, No problem reported Genitourinary - Male: No hematuria, No dysuria, No urinary frequency, No urinary urgency, No urinary hesitancy, No urinary retention, No urinary incontinence, No penile discharge, No lesions, No impotence, No problem reported Neurologic: + problem reported (parkinson disease) Endocrine: + problem reported (dm) Hematologic / Lymphatic: No abnormal bleeding/bruising, No clotting problems, No swollen lymph nodes, No night sweats, No problem reported Integumentary: No rash, No itch, No new/changing skin lesions, No color change , No bleeding, No problem reported Physical Exam Date Time Temp Pulse Resp B/P (MAP) Pulse Ox O2 Delivery O2 Flow Rate FiO2 08/19/16 15:48 37.1 91 20 144/83 (103) 95 Room Air 08/19/16 08:00 CPAP 08/19/16 08:00 Room Air 08/19/16 07:38 36.9 105 20 154/84 (107) 94 Room Air 08/19/16 00:00 96 Room Air 08/18/16 22:54 37.4 95 20 119/78 (92) 93 Room Air Obesity General Appearance: WD/WN, no apparent distress Head: normocephalic Eyes: normal inspection ENT: normal ENT inspection Neck: supple, no JVD Respiratory/Chest: chest non-tender, lungs clear, normal breath sounds Cardiovascular: regular rate, rhythm, no edema, no gallop, no JVD, no murmur Abdomen/GI: normal bowel sounds, non tender, soft, no organomegaly, no pulsatile mass Extremities/Musculoskelatal: normal inspection, no calf tenderness Neurologic/Psych: alert, normal mood/affect Lymphatic: no adenopathy Laboratory Results Last 24 Hours Test 08/18/16 16:42 08/18/16 19:47 08/19/16 07:31 08/19/16 11:35 Bedside Glucose 115 mg/dl 142 mg/dl 116 mg/dl 157 mg/dl Assessment & Plan CT scan-IMPRESSION: 1. Redemonstration of the focal circumferential thickening within the mid to distal sigmoid colon which measures 3.7 cm in length. This is highly suspicious for a colonic mass. Proximal to this area the large bowel is mildly distended and filled with gas and stool. Therefore, this favors a partial large bowel obstruction. Colonoscopy is recommended for confirmation. 2. Multiple borderline enlarged retroperitoneal and left pelvic lymph nodes. There is also partially visualized right hilar lymphadenopathy. This is nonspecific but could represent a neoplastic process. colonoscopy-Impression: - Preparation of the colon was poor. - Stool in the entire examined colon. 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 Biopsied. Tattooed. 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 Biopsied. Tattooed.pathology is pending follow up me in clinic 1 week, D/W possible sigmoid colon resection , pt should go to ER if he develops abdominal pain, nausea, and vomiting, pt understood, I answered all questions,
--- NOTE | 2016-08-19 17:02 | Oncology Consultation ---
Oncology/Heme Consultation Date of Consultation: Aug 19, 2016. Attending Physician: Sky Duran MD Reason for Consultation: Sigmoid colon mass, likely colon cancer History of Present Illness Mr. Canas is a 61 year old man with a history of CHF and Parkinsons. He was admitted from rehab after passing red blood in his stool. He also noted nausea and vomiting. A CT revealed colonic dilatation without a clear transition point to suggest a complete obstruction. He had an NGT placed and was put on bowel rest. Repeat CT with contrast 08/15 revealed thickening of his sigmoid colon concerning for a neoplasm. A colonoscopy 08/16 was limited by a suboptimal prep but revealed a partially obstructing tumor in the sigmoid colon. A biopsy was taken and official pathology is pending, though conversation with pathology suggests it is at least a high-grade adenoma. He was recently treated for CHF and apparently was diuresed for ~30 lb of weight. He denies any chest pain or shortness of breath at this time. He also doesn't really recall any bowel symptoms prior to the rectal bleeding. He had a colonoscopy once many years ago. Past Medical/Surgical History Medical Problems: (1) Chronic low back pain Status: Acute (2) Colitis Status: Acute (3) Dyspnea on exertion Status: Acute (4) GI bleed Status: Acute (5) Inability to ambulate due to multiple joints Status: Acute (6) Medical non-compliance Status: Acute (7) Shortness of breath Status: Acute (8) Weakness Status: Acute Family History FHx: cancer Social History Smoking Status: Never Smoker Smokeless Tobacco Use: No Alcohol Use: none Drug Use: none Marital Status: single, Housing Status: lives alone Occupation Status: retired Allergies Coded Allergies: Erythromycin (Unverified Allergy, Unknown, per PCP/cardio note , 08/06/16) Home Medications Scheduled Aspirin (Aspirin EC Low Dose), 81 MG PO DAILY Fluoxetine HCl (Fluoxetine HCl), 20 MG PO DAILY Furosemide (Furosemide), 40 MG PO QAM Levodopa/Carbidopa (Sinemet 25MG/100MG), 1 TAB PO QID@0800,1200,1600,2000 Lisinopril (Lisinopril), 5 MG PO QAM Metformin HCl (Metformin HCl), 500 MG PO BID Metoprolol Succinate (Metoprolol Succinate ER), 75 MG PO QAM Potassium Chloride (Klor-Con M20), 20 MEQ PO QAM Scheduled PRN Tramadol HCl (Tramadol HCl), 50 MG PO Q4H PRN for Pain Current Inpatient Medications Current Inpatient Medications Medications (Trade) Dose Ordered Sig/Parris Route Start Time Stop Time Status Last Admin Dose Admin Acetaminophen (Tylenol Tab) 650 mg Q4H PRN PO 08/14/16 05:15 09/13/16 05:14 Future hold Ondansetron HCl (Zofran Inj) 4 mg Q6H PRN IV 08/14/16 05:15 09/13/16 05:14 Glucose (Glucose 40% Gel) UD PRN PO 08/14/16 05:15 09/13/16 05:14 Glucose (Glucose Chew Tab) 1 tabs UD PRN PO 08/14/16 05:15 09/13/16 05:14 Dextrose (Dextrose 50% 50ML Syringe) 50 ml UD PRN IV 08/14/16 05:15 09/13/16 05:14 Glucagon (Glucagon Inj) 1 mg UD PRN SQ 08/14/16 05:15 09/13/16 05:14 Carbidopa/Levodopa (Sinemet 25/ 100MG Tab) 1 tab QID@0800,1200,1600,2000 PO 08/14/16 08:00 09/13/16 07:59 Future hold 08/19/16 15:42 1 TAB Miscellaneous (Iv Fluids Completed) 1 ea PRN PRN N/A 08/14/16 05:30 08/14/17 05:29 Furosemide 20 mg/ Syringe 2 ml @ 4 mls/min DAILY IV 08/14/16 09:00 09/13/16 08:59 Future Hold 08/15/16 08:49 4 MLS/MIN Metoprolol Tartrate (Lopressor Iv) 5 mg Q6 PRN IV 08/14/16 12:00 09/13/16 11:59 08/16/16 07:30 5 MG Miconazole Nitrate (Desenex Powder) 1 appln PRN PRN EXT 08/14/16 09:30 09/13/16 09:29 08/18/16 20:40 1 APPLN Fluoxetine HCl (Prozac Cap) 20 mg QAM PO 08/16/16 09:00 09/15/16 08:59 08/19/16 08:19 20 MG Furosemide (Lasix Tab) 40 mg QAM PO 08/16/16 09:00 09/15/16 08:59 08/19/16 08:19 40 MG Lisinopril (Zestril Tab) 5 mg QAM PO 08/16/16 09:00 09/15/16 08:59 08/19/16 08:20 5 MG Metoprolol Succinate (Toprol Xl Tab) 25 mg QAM PO 08/16/16 09:00 09/15/16 08:59 08/19/16 08:20 25 MG Insulin Aspart (novoLOG ASPART) SLIDING SCALE If C... ACHS SC 08/16/16 16:30 09/15/16 16:29 08/19/16 11:45 5 UNITS Review of Systems Constitutional: + weight loss, + fatigue Respiratory: No cough, No shortness of breath Cardiovascular: No chest pain Abdomen: No pain, No nausea, No vomiting Musculoskeletal: No joint pain, No muscle pain Genitourinary - Male: No dysuria Hematologic / Lymphatic: No abnormal bleeding/bruising, No swollen lymph nodes Integumentary: No rash Physical Exam Date Time Temp Pulse Resp B/P (MAP) Pulse Ox O2 Delivery O2 Flow Rate FiO2 08/19/16 15:48 37.1 91 20 144/83 (103) 95 Room Air 08/19/16 08:00 CPAP 08/19/16 08:00 Room Air 08/19/16 07:38 36.9 105 20 154/84 (107) 94 Room Air 08/19/16 00:00 96 Room Air 08/18/16 22:54 37.4 95 20 119/78 (92) 93 Room Air General Appearance: no apparent distress, + obese (morbid obesity) Respiratory/Chest: lungs clear, no respiratory distress Cardiovascular: regular rate, rhythm, no edema Abdomen/GI: non tender, soft Neurologic/Psych: alert, oriented x 3, + pertinent finding (Severe parkinsonian symptoms, including resting tremor, halting speech, and limited facial and extremity movements.) Laboratory Results Last 24 Hours Test 08/18/16 19:47 08/19/16 07:31 08/19/16 11:35 08/19/16 16:32 Bedside Glucose 142 mg/dl 116 mg/dl 157 mg/dl 115 mg/dl Assessment & Plan Mr. Canas appears to have a partially obstructing colon mass. Biopsy strongly suggests a colon cancer, though the specimen was not deep enough to confirm. My concern is his presentation, which suggests that this lesion has a high risk of leading to a complete obstruction. While he is certainly a risky operative candidate, given his body habitus and CHF, I would be nervous about his not following up or presenting again with a ruptured obstruction. Surgery has been consulted and I would discuss with them the risks and benefits of surgery now versus later. The patient prefers the idea of surgery now as well. My role will be more relevant after his surgery, which will determine his stage and the need for adjuvant chemo. He has been adequately staged and does not appear to have distant metastatic disease. Even if he did, however, this mass likely would still need to come out.
--- NOTE | 2016-08-19 17:30 | Family Medicine Progress Note ---
Progress Note Date of Service Aug 19, 2016. Subjective Pt evaluation today including: conversation w/ patient, physical exam, chart review, conversation w/ cardiology clinical consultant, review of inpatient medication list Pain: minimal Patient in no acute distress Denies any abdominal pain, nausea, vomiting Tolerating full diet Urinating regularly and ambulating with walker Last bowel movement was on Friday Constitutional: No fever, No chills, No sweats Respiratory: No cough, No sputum, No shortness of breath Cardiovascular: No chest pain, No edema, No palpitations Abdomen: + constipation, No pain, No nausea, No vomiting Medications Current Inpatient Medications Medications (Trade) Dose Ordered Sig/Parris Route Start Time Stop Time Status Last Admin Dose Admin Acetaminophen (Tylenol Tab) 650 mg Q4H PRN PO 08/14/16 05:15 09/13/16 05:14 Future hold Ondansetron HCl (Zofran Inj) 4 mg Q6H PRN IV 08/14/16 05:15 09/13/16 05:14 Glucose (Glucose 40% Gel) UD PRN PO 08/14/16 05:15 09/13/16 05:14 Glucose (Glucose Chew Tab) 1 tabs UD PRN PO 08/14/16 05:15 09/13/16 05:14 Dextrose (Dextrose 50% 50ML Syringe) 50 ml UD PRN IV 08/14/16 05:15 09/13/16 05:14 Glucagon (Glucagon Inj) 1 mg UD PRN SQ 08/14/16 05:15 09/13/16 05:14 Carbidopa/Levodopa (Sinemet 25/ 100MG Tab) 1 tab QID@0800,1200,1600,2000 PO 08/14/16 08:00 09/13/16 07:59 Future hold 08/19/16 15:42 1 TAB Miscellaneous (Iv Fluids Completed) 1 ea PRN PRN N/A 08/14/16 05:30 08/14/17 05:29 Furosemide 20 mg/ Syringe 2 ml @ 4 mls/min DAILY IV 08/14/16 09:00 09/13/16 08:59 Future Hold 08/15/16 08:49 4 MLS/MIN Metoprolol Tartrate (Lopressor Iv) 5 mg Q6 PRN IV 08/14/16 12:00 09/13/16 11:59 08/16/16 07:30 5 MG Miconazole Nitrate (Desenex Powder) 1 appln PRN PRN EXT 08/14/16 09:30 09/13/16 09:29 08/18/16 20:40 1 APPLN Fluoxetine HCl (Prozac Cap) 20 mg QAM PO 08/16/16 09:00 09/15/16 08:59 08/19/16 08:19 20 MG Furosemide (Lasix Tab) 40 mg QAM PO 08/16/16 09:00 09/15/16 08:59 08/19/16 08:19 40 MG Lisinopril (Zestril Tab) 5 mg QAM PO 08/16/16 09:00 09/15/16 08:59 08/19/16 08:20 5 MG Metoprolol Succinate (Toprol Xl Tab) 25 mg QAM PO 08/16/16 09:00 09/15/16 08:59 08/19/16 08:20 25 MG Insulin Aspart (novoLOG ASPART) SLIDING SCALE If C... ACHS SC 08/16/16 16:30 09/15/16 16:29 08/19/16 11:45 5 UNITS Objective Vital Signs Date Time Temp Pulse Resp B/P (MAP) Pulse Ox O2 Delivery O2 Flow Rate FiO2 08/19/16 16:00 Room Air 08/19/16 15:48 37.1 91 20 144/83 (103) 95 Room Air 08/19/16 08:00 CPAP 08/19/16 08:00 Room Air 08/19/16 07:38 36.9 105 20 154/84 (107) 94 Room Air 08/19/16 00:00 96 Room Air 08/18/16 22:54 37.4 95 20 119/78 (92) 93 Room Air Physical Exam General Appearance: WD/WN, no apparent distress, + obese, + pertinent finding ( flat affect) Respiratory/Chest: chest non-tender, lungs clear, no respiratory distress, no accessory muscle use Cardiovascular: regular rate, rhythm, no murmur Abdomen: normal bowel sounds, non tender, soft, + distended Extremities: normal inspection, no calf tenderness, normal capillary refill, + pedal edema (trace to the mid walker) Neurologic/Psychiatric: alert, normal mood/affect, oriented x 3, + pertinent finding (resting tremor) Laboratory Results Results Past 24 Hours Test 08/18/16 19:47 08/19/16 07:31 08/19/16 11:35 08/19/16 16:32 Range/Units Bedside Glucose 142 116 157 115 70-99 mg/dl Assessment and Plan 61 yo M recently d/c from the hospital for an admission on Aug 062016 for SOB and CHF exacerbation. During that admission he was diuresed approx 20 pounds worth of water weight. He was admitted to [facility] for rehab and after a short period of time he developed N&V and what looked like blood in his stool. Because of the recent admission and Heparin for DVT prophylaxis he was sent back to the hospital. He was found to have a pseudoobstruction. He had a colonoscopy and was found to have a mass which was biopsied. This is presumed to be a GI malignancy with a high chance of reobstructing. patial bowel obstruction/ bowel wall thickening concerning for malignancy - Diet advanced and tolerated. - biopsy taken from mass on colonoscopy--likely malignancy - consult general surgery to remove affected bowel to prevent reobstruction - oncology consulted for follow up of further treatment after surgery and biopsy results Chronic diastolic HF - Lasix 40 mg PO daily - lisinopril cont'd - ASA on hold HTN - Continue Metoprolol 25 mg daily DMII - Insulin ISS - metformin held Parkinson's - continue Sinemet, neural stimulator noted Depression - fluoxetine cont'd DVT SCD ---- Resident Physician Supervision Note: I was present with PGY2 Dr. Keaton Monique during the history and exam. I discussed the case with the resident and agree with the findings and plan as documented in the note. Any exceptions or clarifications are listed here: None. Pt w/o any complaints during my visit; no abd pain, no nausea/emesis. Not passing much flatus. No BM in several days. No dyspnea. VSS except BPs mildly high gen - obese heart - RR, extra beats, s1, s2 lungs - CTA b/l abd - obese, soft, NT, ND, BS+ ext - trace edema left, none on right A/P: Sigmoid mass - s/p colonoscopy w/ biopsy - path today with at least high grade dysplasia but suspicious for adenocarcinoma. Resection advised. Spoke with Dr. Silva who recommends transfer to tertiary care center for resection as he is high risk for any surgical intervention. Will d/w patient his desires. Heme/onc consult also appreciated. HTN - uncontrolled - was on 75mg of toprol xl; will increase toprol xl to 25mg BID. Documented By: Sky Duran MD
[2016-08-19 20:00] VITALS: O2SAT 96
[2016-08-19 23:20] VITALS: BP 135/76; PULSE 97; TEMP 37; O2SAT 94
[2016-08-20] VITALS (7 sets, daily range): BP systolic 122–146; BP diastolic 78–83; PULSE 80–97; TEMP 36.5–37; O2SAT 94–96
[2016-08-20 07:32] LABS: HEMATOCRIT 34.2 % (42-52); MEAN CELL VOLUME 83.4 fL (80-100); MEAN CORPUSCULAR HEMOGLOBIN 24.6 pg (25-34); MEAN CORPUSCULAR HGB CONC 29.5 g/dl (32-36); MEAN PLATELET VOLUME 9.8 fL (7.4-10.4); PLATELET COUNT 271 K/uL (130-400); WHITE BLOOD COUNT 7.14 K/uL (4.8-10.8)
[2016-08-20] MEDS: CARBIDOPA/LEVODOPA 25/100MG TAB PO SCH ×4 (07:53→20:34)
[2016-08-20 07:57] LABS: BUN/CREATININE RATIO 16.2 (10-20); CALCIUM 8.3 mg/dl (8.5-10.1); CREATININE 0.61 mg/dl (0.60-1.40); POTASSIUM 3.6 mmol/L (3.5-5.1)
[2016-08-20] MEDS: FLUOXETINE HCL 20 MG CAP PO SCH (08:05)
[2016-08-20] MEDS: FUROSEMIDE 40 MG TAB PO SCH (08:05)
[2016-08-20] MEDS: METOPROLOL SUCC 25MG EXT REL TAB PO SCH ×2 (08:06→20:37)
[2016-08-20] MEDS: LISINOPRIL 5 MG TAB PO SCH (08:06)
[2016-08-20] MEDS: INSULIN ASPART 100 UNITS/ML 3 ML PEN SC SCH ×4 (08:15→20:40)
--- NOTE | 2016-08-20 11:54 | Surgery Progress Note ---
Surgery Progress Note Date of Service Aug 20, 2016. Subjective He has been able to tolerate diet but is feeling more full. Has not passed any stool since cscope. No vomiting. No abdominal pain. Pt is wondering about surgical options- ? surgery here at [facility] vs transfer to tertiary care facility given his BMI and other medical issues. Objective Vital Signs: Date Time Temp Pulse Resp B/P (MAP) Pulse Ox O2 Delivery O2 Flow Rate FiO2 08/20/16 08:00 94 Room Air 08/20/16 07:29 36.8 97 20 146/83 (104) 94 08/20/16 00:00 96 Room Air 08/19/16 23:20 37.0 97 18 135/76 (95) 94 Room Air 08/19/16 20:00 96 Room Air 08/19/16 16:00 Room Air 08/19/16 15:48 37.1 91 20 144/83 (103) 95 Room Air General Appearance: WD/WN, no apparent distress Respiratory/Chest: no respiratory distress Cardiovascular: regular rate, rhythm Abdomen: non tender, soft, + abnormal bowel sounds (high pitched), + distended Laboratory Results: Results Past 24 Hours Test 08/19/16 16:32 08/19/16 20:07 08/20/16 06:54 08/20/16 07:39 Range/Units Bedside Glucose 115 131 123 70-99 mg/dl White Blood Count 7.14 4.8-10.8 K/uL Red Blood Count 4.10 4.7-6.1 M/uL Hemoglobin 10.1 14.0-18.0 g/dL Hematocrit 34.2 42-52 % Mean Corpuscular Volume 83.4 80-100 fL Mean Corpuscular Hemoglobin 24.6 25-34 pg Mean Corpuscular Hemoglobin Concent 29.5 32-36 g/dl RDW Standard Deviation 52.4 36.4-46.3 fL RDW Coefficient of Variation 17.1 11.5-14.5 % Platelet Count 271 130-400 K/uL Mean Platelet Volume 9.8 7.4-10.4 fL Sodium Level 136 136-145 mmol/L Potassium Level 3.6 3.5-5.1 mmol/L Chloride Level 101 98-107 mmol/L Carbon Dioxide Level 28 21-32 mmol/L Anion Gap 7.0 3-11 mmol/L Blood Urea Nitrogen 10 7-18 mg/dl Creatinine 0.61 0.60-1.40 mg/dl Est Creatinine Clear Calc Drug Dose 203.9 ml/min Estimated GFR () 125.8 Estimated GFR (Non- 108.5 BUN/Creatinine Ratio 16.2 10-20 Random Glucose 113 70-99 mg/dl Calcium Level 8.3 8.5-10.1 mg/dl Assessment & Plan 61 yr old man with BMI of almost 49, Parkinson's, CHF and partially obstructing sigmoid colonic mass. Biopsies pending but concern is for malignancy. Currently able to tolerate diet but has not had any bowel function. Will try miralax. If able to pass bowel movements, can be discharged with outpt f/u within next 1 week preferred for scheduling of surgery. If unable to pass bowel movements, may need more urgent surgical intervention. Family would prefer [facility] if transfer becomes indicated. Dr. Silva to return tomorrow.
--- NOTE | 2016-08-20 12:20 | Hematology/Oncology Prog Note ---
Hematology/Onc Progress Note Date of Service Aug 20, 2016. Diagnoses Colon cancer CHF Parkinson's Disease Medications Medications Administered Medications (Trade) Dose Ordered Sig/Parris Route Start Time Stop Time Status Last Admin Dose Admin Potassium Chloride/Sodium Chloride 1,000 ml @ 80 mls/hr [id number] IV 08/14/16 05:09 08/17/16 12:27 DC 08/17/16 07:31 80 MLS/HR Insulin Aspart (novoLOG ASPART) SLIDING SCALE If C... ACHS SC 08/14/16 06:30 08/14/16 09:13 DC 08/14/16 08:37 1 UNITS Carbidopa/Levodopa (Sinemet 25/ 100MG Tab) 1 tab QID@0800,1200,1600,2000 PO 08/14/16 08:00 09/13/16 07:59 Future hold 08/20/16 07:53 1 TAB Furosemide 20 mg/ Syringe 2 ml @ 4 mls/min DAILY IV 08/14/16 09:00 09/13/16 08:59 Future Hold 08/15/16 08:49 4 MLS/MIN Metoprolol Tartrate (Lopressor Iv) 5 mg Q6 PRN IV 08/14/16 12:00 09/13/16 11:59 08/16/16 07:30 5 MG Miconazole Nitrate (Desenex Powder) 1 appln PRN PRN EXT 08/14/16 09:30 09/13/16 09:29 08/18/16 20:40 1 APPLN Polyethylene Glycol/ Electrolytes (Golytely Soln) 1 dose Q15M PO 08/15/16 20:00 08/15/16 23:46 DC 08/16/16 00:15 1 DOSE Fluoxetine HCl (Prozac Cap) 20 mg QAM PO 08/16/16 09:00 09/15/16 08:59 08/20/16 08:05 20 MG Furosemide (Lasix Tab) 40 mg QAM PO 08/16/16 09:00 09/15/16 08:59 08/20/16 08:05 40 MG Lisinopril (Zestril Tab) 5 mg QAM PO 08/16/16 09:00 09/15/16 08:59 08/20/16 08:06 5 MG Metoprolol Succinate (Toprol Xl Tab) 25 mg QAM PO 08/16/16 09:00 08/19/16 19:09 DC 08/19/16 08:20 25 MG Bisacodyl (Dulcolax Supp) [address] 08/16/16 08:11 08/16/16 08:12 DC 08/16/16 08:31 10 MG Sodium Biphosphate/ Sodium Phosphate (Fleet Enema) 132 ml STK-MED ONCE .ROUTE 08/16/16 11:19 08/16/16 11:20 DC 08/16/16 11:33 132 ML Insulin Aspart (novoLOG ASPART) SLIDING SCALE If C... ACHS SC 08/16/16 16:30 09/15/16 16:29 08/20/16 08:15 6 UNITS Polyethylene (Miralax Powder Packet) 17 gm NOW ONCE PO 08/18/16 10:30 08/18/16 10:31 DC 08/18/16 10:44 17 GM Metoprolol Succinate (Toprol Xl Tab) 25 mg BID PO 08/19/16 21:00 09/15/16 08:59 08/20/16 08:06 25 MG Subjective Mr. Canas is sitting comfortably in a chair. He has not yet moved his bowels, but has no abdominal pain, nausea, or vomiting. Review of Systems: Constitutional: No fever, No fatigue Respiratory: No cough, No shortness of breath Cardiovascular: No chest pain Abdomen: + constipation, No pain, No nausea Musculoskeletal: No joint pain, No muscle pain Heme: No abnormal bleeding/bruising Vital Signs Vital Signs Past 12 Hours Date Time Temp Pulse Resp B/P (MAP) Pulse Ox O2 Delivery O2 Flow Rate FiO2 08/20/16 08:00 94 Room Air 08/20/16 07:29 36.8 97 20 146/83 (104) 94 Physical Exam Constitutional: General Apperance: obese Level of Distress: NAD Psychiatric: Mental Status: active & alert Orientation: oriented except where noted Lungs: Auscuitation: CTA except as noted Cardiovascular: Heart Auscultation: RRR Abdomen: Inspection & Palpation: soft, no tenderness, guarding & rebound Extremities: no edema Neurologic: Gait & Station: pertinent finding (movements consistent with Parkinsons) Laboratory Last 24 Hours Test 08/19/16 16:32 08/19/16 20:07 08/20/16 06:54 08/20/16 07:39 Bedside Glucose 115 mg/dl 131 mg/dl 123 mg/dl White Blood Count 7.14 K/uL Red Blood Count 4.10 M/uL Hemoglobin 10.1 g/dL Hematocrit 34.2 % Mean Corpuscular Volume 83.4 fL Mean Corpuscular Hemoglobin 24.6 pg Mean Corpuscular Hemoglobin Concent 29.5 g/dl RDW Standard Deviation 52.4 fL RDW Coefficient of Variation 17.1 % Platelet Count 271 K/uL Mean Platelet Volume 9.8 fL Sodium Level 136 mmol/L Potassium Level 3.6 mmol/L Chloride Level 101 mmol/L Carbon Dioxide Level 28 mmol/L Anion Gap 7.0 mmol/L Blood Urea Nitrogen 10 mg/dl Creatinine 0.61 mg/dl Est Creatinine Clear Calc Drug Dose 203.9 ml/min Estimated GFR () 125.8 Estimated GFR (Non- 108.5 BUN/Creatinine Ratio 16.2 Random Glucose 113 mg/dl Calcium Level 8.3 mg/dl Test 08/20/16 11:48 Bedside Glucose 159 mg/dl Pathology COLON, SIGMOID, MASS, BIOPSY: 1. AT LEAST ADENOMA WITH HIGH-GRADE DYSPLASIA, SUSPICIOUS FOR ADENOCARCINOMA. 2. SEE COMMENT. COMMENT: The clinical history of a mass is noted. The biopsies show at least an adenoma with high-grade dysplasia. Portions of the lesion are ulcerated. There are areas of apparent desmoplasmic stroma with scattered atypical glands. These areas are very worrisome for a component of invasive carcinoma. Microsatellite instability by immunohistochemistry will be performed and reported in an addendum. Assessment & Plan Mr. Canas has a colon cancer that needs to be resected. He has been referred to colorectal surgery at [facility] given his medical comorbidities. Depending on whether his bowel function returns, this will happen either as an outpatient or during this stay, after a transfer. I will make arrangements to see him as an outpatient to review his pathology results and to discuss the need for chemo, if indicated.
--- NOTE | 2016-08-20 13:56 | Family Medicine Progress Note ---
Progress Note Date of Service Aug 20, 2016. Subjective Pt evaluation today including: conversation w/ patient, physical exam, chart review, lab review, conversation w/ contaminated land consultant Pain: minimal PO Intake: good Voiding: no voiding problems Patient with new complaint of buttock discomfort on left side Has not had bm since friday, passed gas yesterday evening but feels as if abdomen is more bloated. Denies any abdomina pain, nausea, vomiting, fevers, chills weats Said he would like to go to [place] for colon resection Constitutional: No fever, No chills, No sweats Respiratory: + wheezing, No cough, No sputum, No shortness of breath Cardiovascular: No chest pain, No palpitations Abdomen: + constipation, No pain, No nausea, No vomiting, No diarrhea Skin: + new/changing skin lesions (rigtht buttock) Medications Current Inpatient Medications Medications (Trade) Dose Ordered Sig/Parris Route Start Time Stop Time Status Last Admin Dose Admin Acetaminophen (Tylenol Tab) 650 mg Q4H PRN PO 08/14/16 05:15 09/13/16 05:14 Future hold Ondansetron HCl (Zofran Inj) 4 mg Q6H PRN IV 08/14/16 05:15 09/13/16 05:14 Glucose (Glucose 40% Gel) UD PRN PO 08/14/16 05:15 09/13/16 05:14 Glucose (Glucose Chew Tab) 1 tabs UD PRN PO 08/14/16 05:15 09/13/16 05:14 Dextrose (Dextrose 50% 50ML Syringe) 50 ml UD PRN IV 08/14/16 05:15 09/13/16 05:14 Glucagon (Glucagon Inj) 1 mg UD PRN SQ 08/14/16 05:15 09/13/16 05:14 Carbidopa/Levodopa (Sinemet 25/ 100MG Tab) 1 tab QID@0800,1200,1600,2000 PO 08/14/16 08:00 09/13/16 07:59 Future hold 08/20/16 12:32 1 TAB Miscellaneous (Iv Fluids Completed) 1 ea PRN PRN N/A 08/14/16 05:30 08/14/17 05:29 Furosemide 20 mg/ Syringe 2 ml @ 4 mls/min DAILY IV 08/14/16 09:00 09/13/16 08:59 Future Hold 08/15/16 08:49 4 MLS/MIN Metoprolol Tartrate (Lopressor Iv) 5 mg Q6 PRN IV 08/14/16 12:00 09/13/16 11:59 08/16/16 07:30 5 MG Miconazole Nitrate (Desenex Powder) 1 appln PRN PRN EXT 08/14/16 09:30 09/13/16 09:29 08/18/16 20:40 1 APPLN Fluoxetine HCl (Prozac Cap) 20 mg QAM PO 08/16/16 09:00 09/15/16 08:59 08/20/16 08:05 20 MG Furosemide (Lasix Tab) 40 mg QAM PO 08/16/16 09:00 09/15/16 08:59 08/20/16 08:05 40 MG Lisinopril (Zestril Tab) 5 mg QAM PO 08/16/16 09:00 09/15/16 08:59 08/20/16 08:06 5 MG Insulin Aspart (novoLOG ASPART) SLIDING SCALE If C... ACHS SC 08/16/16 16:30 09/15/16 16:29 08/20/16 08:15 6 UNITS Metoprolol Succinate (Toprol Xl Tab) 25 mg BID PO 08/19/16 21:00 09/15/16 08:59 08/20/16 08:06 25 MG Polyethylene (Miralax Powder Packet) 17 gm DAILY PO 08/21/16 09:00 09/20/16 08:59 Vancomycin HCl 1000 mg/Sodium Chloride 270 ml @ 125 mls/hr Q12 IV 08/20/16 21:00 08/30/16 20:59 UNV Vancomycin HCl 1000 mg/Sodium Chloride 270 ml @ 125 mls/hr 1313 ONCE IV 08/20/16 13:13 08/20/16 15:22 UNV Objective Vital Signs Date Time Temp Pulse Resp B/P (MAP) Pulse Ox O2 Delivery O2 Flow Rate FiO2 08/20/16 08:00 94 Room Air 08/20/16 07:29 36.8 97 20 146/83 (104) 94 08/20/16 00:00 96 Room Air 08/19/16 23:20 37.0 97 18 135/76 (95) 94 Room Air 08/19/16 20:00 96 Room Air 08/19/16 16:00 Room Air 08/19/16 15:48 37.1 91 20 144/83 (103) 95 Room Air Physical Exam General Appearance: WD/WN, no apparent distress, + obese, + pertinent finding ( flat affect) Neck: no carotid bruits, trachea midline Respiratory/Chest: lungs clear, no respiratory distress, no accessory muscle use Cardiovascular: regular rate, rhythm, no murmur, + pertinent finding (+1 pitting edema to knees bilaterally) Abdomen: non tender, soft, + distended, + pertinent finding (high pitched bs) Neurologic/Psychiatric: alert, normal mood/affect, oriented x 3 Skin: + rash (over right buttock has tender, confluent, erythematous rash with central purulent discharge and some scattered crusted vesicles) Laboratory Results Results Past 24 Hours Test 08/19/16 16:32 08/19/16 20:07 08/20/16 06:54 08/20/16 07:39 Range/Units Bedside Glucose 115 131 123 70-99 mg/dl White Blood Count 7.14 4.8-10.8 K/uL Red Blood Count 4.10 4.7-6.1 M/uL Hemoglobin 10.1 14.0-18.0 g/dL Hematocrit 34.2 42-52 % Mean Corpuscular Volume 83.4 80-100 fL Mean Corpuscular Hemoglobin 24.6 25-34 pg Mean Corpuscular Hemoglobin Concent 29.5 32-36 g/dl RDW Standard Deviation 52.4 36.4-46.3 fL RDW Coefficient of Variation 17.1 11.5-14.5 % Platelet Count 271 130-400 K/uL Mean Platelet Volume 9.8 7.4-10.4 fL Sodium Level 136 136-145 mmol/L Potassium Level 3.6 3.5-5.1 mmol/L Chloride Level 101 98-107 mmol/L Carbon Dioxide Level 28 21-32 mmol/L Anion Gap 7.0 3-11 mmol/L Blood Urea Nitrogen 10 7-18 mg/dl Creatinine 0.61 0.60-1.40 mg/dl Est Creatinine Clear Calc Drug Dose 203.9 ml/min Estimated GFR () 125.8 Estimated GFR (Non- 108.5 BUN/Creatinine Ratio 16.2 10-20 Random Glucose 113 70-99 mg/dl Calcium Level 8.3 8.5-10.1 mg/dl Test 08/20/16 11:48 Range/Units Bedside Glucose 159 70-99 mg/dl Assessment and Plan 61 yo M recently d/c from the hospital for an admission on Aug 062016 for SOB and CHF exacerbation. During that admission he was diuresed approx 20 pounds worth of water weight. He was admitted to [facility] for rehab and after a short period of time he developed N&V and what looked like blood in his stool. Because of the recent admission and Heparin for DVT prophylaxis he was sent back to the hospital. He was found to have a pseudoobstruction. He had a colonoscopy and was found to have a mass which was biopsied. This is presumed to be a GI malignancy with a high chance of reobstructing. Will go to [place] for resection. In the interim he has been found to have a new tender, erythematous skin change on buttock which appears to have a possible underlying abscess. Before going to [place] we will need to investigate this as it may either be cellulitis with abscess or it could possible be shingles. Buttock cellulitis - start IV Vancomycin bid for MRSA coverage - order US to check for underlying abscess - if abscess present will need to contact surgeon chemist instrumentation for drainage and culture patial bowel obstruction/ bowel wall thickening concerning for malignancy - Diet advanced and tolerated. - biopsy taken from mass on colonoscopy--AT LEAST ADENOMA WITH HIGH-GRADE DYSPLASIA, SUSPICIOUS FOR ADENOCARCINOMA. - will need to go to [place] for resection - oncology consulted for follow up of further treatment after surgery and biopsy results Chronic diastolic HF - Lasix 40 mg PO daily - lisinopril cont'd - ASA on hold HTN - Continue Metoprolol 25 mg daily DMII - Insulin ISS - metformin held Parkinson's - continue Sinemet, neural stimulator noted Depression - fluoxetine cont'd DVT SCD ---- Resident Physician Supervision Note: I was present with PGY2 Dr. Keaton Monique during the history and exam. I discussed the case with the resident and agree with the findings and plan as documented in the note. Any exceptions or clarifications are listed here: None. Overnight developed painful/reddened area with mild drainage over left buttock. No fever. Otherwise no complaints. no BM since last week. passing little flatus. VSS gen - obese, NAD heart - RR, extra beats, s1, s2 lungs - CTA b/l abd - obese, soft, NT, BS present but more hyperactive today; possibly more distended today ext - trace edema left, none on right skin - left buttock - erythematous area - probably 6-8 cm in diameter horizontally with medial area much more firm; no fluctuance/abscess felt near the cleft there are several white appearing papules or vesicles(?) but not classic shingles; serous drainage present from some of these white lesions A/P: Sigmoid mass - s/p colonoscopy w/ biopsy - path today with at least high grade dysplasia but suspicious for adenocarcinoma. Resection advised. Spoke with Dr. Silva who recommends transfer to tertiary care center for resection as he is high risk for any surgical intervention. Pt desires Tx to [facility] ultimately. Left buttock lesions - cellulitis vs cellulitis w/ abscess vs shingles. Start vanco. u/s to r/o abscess. if it becomes more vesicular then this is sacral shingles. re-eval tomorrow. Documented By: Sky Duran MD Continued [facility] stay due to: ambulation difficulties, multiple IV medications needed
[2016-08-20] MEDS ORDERED: VANCOMYCIN CONSULT ACTIVE PRN (14:15)
[2016-08-20] MEDS: MICONAZOLE NITRATE POWDER 43 GM EXT PRN (14:16)
--- NOTE | 2016-08-20 14:25 | Pharmacy Progress Note ---
Pharmacy Abx Initial Consult Date of Service Aug 20, 2016. Pharmacy Dosing Scope Date of Consult: 08/20/16 Consultation requested by: Dr. Monique Pharmacy is consulted to initiate vancomycin IV dosing therapy, order appropriate labs and adjust drug dose/frequency. Subjective The patient is a 61 year old male admitted on Aug 15, 2016 for colitis. Objective Height (Feet): 6 Height (Inches): 0.00 Weight (Kilograms): 163.500 (BMI = 48.9) Vital Signs (Past 12Hrs) Vital Signs Past 12 Hours Date Time Temp Pulse Resp B/P (MAP) Pulse Ox O2 Delivery O2 Flow Rate FiO2 08/20/16 08:00 94 Room Air 08/20/16 07:29 36.8 97 20 146/83 (104) 94 Lab Results (24Hrs) Laboratory Tests (24 Hours) Test 08/20/16 06:54 White Blood Count 7.14 K/uL (4.8-10.8) Micro Results Date/Time Source Procedure Growth Status 08/14/16 06:30 Nasal MRSA DNA Surveillance Screen - Final Specimen Negative for MRSA by DNA Probe Complete 08/14/16 19:45 Stool C.difficile Toxin B Gene (PCR) - Final No C. difficile toxin B gene detected Complete 08/14/16 19:45 Stool Shiga Toxin Test - Final No E. Coli shiga toxin 1 or shiga tox... Complete 08/14/16 19:45 Stool Stool Culture - Final NO SALMONELLA ISOLATED,... Complete Risk Factors for Resistance * Resident in a jail or extended-care facility * Hospitalization for 48 hours or more within the past 90 days * Current hospitalization > 5 days Assessment & Plan Assessment 61 year old male admitted 08/14 for colitis, now being initiated on vancomycin IV for buttock cellulitis with possible underlying abscess Plan Vancomycin IV * Est PK parameters: Vd ~0.6 L/kg, Ammon ~ 0.104 hr-1, t1/2 6.7 hrs * Loading dose: 2800 mg (17 mg/kg) * Maintenance dose: 1500 mg IV (9.2 mg/kg) every 8 hours * Goal trough level for cellulitis w/ possible abscess : ~15 mcg/mL * Trough level ordered for 08/21/16 prior to the 4th overall dose - NOT yet steady state but will need to assess for accumulation * A less than traditional dose has been selected due to likelihood of drug accumulation in obese patient Pharmacy will continue to follow and will adjust dose/frequency as necessary. Thank you.
[2016-08-20] MEDS ORDERED: VANCOMYCIN INJ 2,800 MG in SODIUM CHLORIDE 0.9% 500ML 500 ML IV ONE (14:30)
--- NOTE | 2016-08-20 20:11 | DIAGNOSTIC IMAGING REPORT ---
ULTRASOUND OF THE LEFT BUTTOCK CLINICAL HISTORY: Clinical concern for buttock abscess. FINDINGS: Real-time, grayscale, and color flow sonography of the left buttock is performed at the indicated site of interest. Correlation is made with pelvic CT dated 08/15/2016. There is no sonographic evidence of abscess at the indicated site of interest in the left buttock. No significant soft tissue edema is identified. Clarence appearing subcutaneous fat is identified. IMPRESSION: Unremarkable sonographic assessment of left buttock. There is no evidence of abscess as clinically queried. Electronically signed by: Aryan Ayers M.D. 08/20/2016 8:10 PM Dictated Date/Time: 08/20/2016 8:08 PM
[2016-08-20] MEDS: VANCOMYCIN INJ 1,500 MG in SODIUM CHLORIDE 0.9% 500ML 500 ML IV SCH (22:10)
[2016-08-21] VITALS (7 sets, daily range): BP systolic 121–154; BP diastolic 81–88; PULSE 85–90; TEMP 36.7–36.8; O2SAT 94–98
[2016-08-21] MEDS: VANCOMYCIN INJ 1,500 MG in SODIUM CHLORIDE 0.9% 500ML 500 ML IV SCH ×2 (06:02→14:45)
[2016-08-21] MEDS ORDERED: POLYETHYLENE (MIRALAX) 17 GM PACK PO SCH (09:00)
[2016-08-21] MEDS: CARBIDOPA/LEVODOPA 25/100MG TAB PO SCH ×4 (09:04→20:12)
[2016-08-21] MEDS: METOPROLOL SUCC 25MG EXT REL TAB PO SCH ×2 (09:04→20:13)
[2016-08-21] MEDS: LISINOPRIL 5 MG TAB PO SCH (09:05)
[2016-08-21] MEDS: FLUOXETINE HCL 20 MG CAP PO SCH (09:05)
[2016-08-21] MEDS: FUROSEMIDE 40 MG TAB PO SCH (09:06)
[2016-08-21] MEDS: INSULIN ASPART 100 UNITS/ML 3 ML PEN SC SCH ×3 (09:10→18:04)
--- NOTE | 2016-08-21 09:23 | Hematology/Oncology Prog Note ---
Hematology/Onc Progress Note Date of Service Aug 21, 2016. Diagnoses Sigmoid mass lesion rule out carcinoma Medications Medications Administered Medications (Trade) Dose Ordered Sig/Parris Route Start Time Stop Time Status Last Admin Dose Admin Potassium Chloride/Sodium Chloride 1,000 ml @ 80 mls/hr [id number] IV 08/14/16 05:09 08/17/16 12:27 DC 08/17/16 07:31 80 MLS/HR Insulin Aspart (novoLOG ASPART) SLIDING SCALE If C... ACHS SC 08/14/16 06:30 08/14/16 09:13 DC 08/14/16 08:37 1 UNITS Carbidopa/Levodopa (Sinemet 25/ 100MG Tab) 1 tab QID@0800,1200,1600,2000 PO 08/14/16 08:00 09/13/16 07:59 Future hold 08/21/16 09:04 1 TAB Furosemide 20 mg/ Syringe 2 ml @ 4 mls/min DAILY IV 08/14/16 09:00 09/13/16 08:59 Future Hold 08/15/16 08:49 4 MLS/MIN Metoprolol Tartrate (Lopressor Iv) 5 mg Q6 PRN IV 08/14/16 12:00 09/13/16 11:59 08/16/16 07:30 5 MG Miconazole Nitrate (Desenex Powder) 1 appln PRN PRN EXT 08/14/16 09:30 09/13/16 09:29 08/20/16 14:16 1 APPLN Polyethylene Glycol/ Electrolytes (Golytely Soln) 1 dose Q15M PO 08/15/16 20:00 08/15/16 23:46 DC 08/16/16 00:15 1 DOSE Fluoxetine HCl (Prozac Cap) 20 mg QAM PO 08/16/16 09:00 09/15/16 08:59 08/21/16 09:05 20 MG Furosemide (Lasix Tab) 40 mg QAM PO 08/16/16 09:00 09/15/16 08:59 08/21/16 09:06 40 MG Lisinopril (Zestril Tab) 5 mg QAM PO 08/16/16 09:00 09/15/16 08:59 08/21/16 09:05 5 MG Metoprolol Succinate (Toprol Xl Tab) 25 mg QAM PO 08/16/16 09:00 08/19/16 19:09 DC 08/19/16 08:20 25 MG Bisacodyl (Dulcolax Supp) 10 mg NOW STAT OK 08/16/16 08:11 08/16/16 08:12 DC 08/16/16 08:31 10 MG Sodium Biphosphate/ Sodium Phosphate (Fleet Enema) 132 ml STK-MED ONCE .ROUTE 08/16/16 11:19 08/16/16 11:20 DC 08/16/16 11:33 132 ML Insulin Aspart (novoLOG ASPART) SLIDING SCALE If C... ACHS SC 08/16/16 16:30 09/15/16 16:29 08/21/16 09:10 2 UNITS Polyethylene (Miralax Powder Packet) 17 gm NOW ONCE PO 08/18/16 10:30 08/18/16 10:31 DC 08/18/16 10:44 17 GM Metoprolol Succinate (Toprol Xl Tab) 25 mg BID PO 08/19/16 21:00 09/15/16 08:59 08/21/16 09:04 25 MG Polyethylene (Miralax Powder Packet) 17 gm DAILY PO 08/21/16 09:00 09/20/16 08:59 08/21/16 09:05 17 GM Vancomycin HCl 1500 mg/Sodium Chloride 530 ml @ 200 mls/hr Q8H IV 08/20/16 22:00 08/30/16 21:59 08/21/16 06:02 200 MLS/HR Vancomycin HCl 2800 mg/Sodium Chloride 556 ml @ 200 mls/hr TODAY@1430 ONCE IV 08/20/16 14:30 08/20/16 17:16 DC 08/20/16 14:20 200 MLS/HR Subjective He seems to be doing well. He denies any pain. Review of Systems: Constitutional: Negative for weight loss, night sweats, or fever Eyes: Negative for event change of vision ENT: Negative for epistaxis, nasal discharge, sore throat, or deafness Cardiovascular: Negative for chest pain, palpitations, dizziness, diaphoresis Respiratory: Negative for new shortness of breath,hemoptysis, or purulent cough Gastrointestinal: Negative for diarrhea, hematemesis, he has seen blood in the stool Integumentary (skin): Negative for rash or jaundice discoloration Genitourinary: Negative for urinary frequency, hematuria, or dysuria Neurological: History of Parkinson's Lymphatic/Hematologic: Negative for petechiae, bleeding or new adenopathy Musculoskeletal: Negative for new joint or back pain Allergic/Immunologic: Negative for unusual rash or pruritis. Vital Signs Vital Signs Past 12 Hours Date Time Temp Pulse Resp B/P (MAP) Pulse Ox O2 Delivery O2 Flow Rate FiO2 08/21/16 09:10 85 149/88 (108) 08/21/16 08:00 Room Air 08/21/16 07:19 36.8 90 20 154/83 (106) 95 Room Air 08/21/16 00:00 96 Room Air 08/20/16 23:44 37.0 86 18 145/81 (102) 94 Room Air Physical Exam Constitutional: vitals are stable. Morbidly obese Eyes: Eyes are KURT EOMI without conjuctival erythema or icterus. ENT: External examination was negative for masses. Neck: Negative for masses or palpable thyromegaly Respiratory: Lung sounds were generally clear bilaterally Cardiovascular: Heart was RRR without significant murmur, gallops aoe rubs Gastrointestinal: No palpable hepatic or splenomegaly. The abdomen was soft with normal to decreased bowel sounds. Lymphatic system: there was no palpable peripheral lymphadenopathy Musculoskeletal System: The musculoskeletal system seemed concordant with age. Skin: The skin was negative for jaundice. Neurologic exam: The exam was negative for any focal findings. Deep tendon reflexes were equal and symmetrical. Psychiatric exam: Was essentially negative with normal mood and effect. Extremities: Negative for significant edema Constitutional: General Apperance: obese Level of Distress: NAD Psychiatric: Mental Status: active & alert Orientation: oriented except where noted Lungs: Auscuitation: CTA except as noted Cardiovascular: Heart Auscultation: RRR Abdomen: Inspection & Palpation: soft, no tenderness, guarding & rebound Extremities: no edema Neurologic: Gait & Station: pertinent finding (movements consistent with Parkinsons) Laboratory Last 24 Hours Test 08/20/16 11:48 08/20/16 16:29 08/20/16 20:40 08/21/16 07:40 Bedside Glucose 159 mg/dl 129 mg/dl 116 mg/dl 129 mg/dl Test 08/21/16 08:10 Assessment & Plan Sigmoid lesion with high-grade dysplasia. Surgery will be needed. This is a partially obstructing tumor or mass. For now we will sign off but he will have a follow-up in our clinic in 2-3 weeks to discuss the need for any further therapy. Please do not hesitate to reconsult.
[2016-08-21 09:26] LABS: CREATININE 0.62 mg/dl (0.60-1.40)
[2016-08-21] MEDS: MICONAZOLE NITRATE POWDER 43 GM EXT PRN (10:30)
--- NOTE | 2016-08-21 11:10 | Surgery Progress Note ---
Surgery Progress Note Date of Service Aug 21, 2016. Subjective Post OP Day: HD # 6 Patient was in restroom on encounter Just had very large,foul smelling bowel movement Not having much abdominal pain Objective Vital Signs: Date Time Temp Pulse Resp B/P (MAP) Pulse Ox O2 Delivery O2 Flow Rate FiO2 08/21/16 09:10 85 149/88 (108) 08/21/16 08:00 Room Air 08/21/16 07:19 36.8 90 20 154/83 (106) 95 Room Air 08/21/16 00:00 96 Room Air 08/20/16 23:44 37.0 86 18 145/81 (102) 94 Room Air 08/20/16 20:41 89 131/78 (95) 08/20/16 16:00 96 Room Air 08/20/16 15:50 36.5 80 19 122/78 (93) 96 Room Air General Appearance: WD/WN, no apparent distress, + obese Head: normocephalic, atraumatic Neck: trachea midline Respiratory/Chest: no respiratory distress, no accessory muscle use Laboratory Results: Results Past 24 Hours Test 08/20/16 11:48 08/20/16 16:29 08/20/16 20:40 08/21/16 07:40 Range/Units Bedside Glucose 159 129 116 129 70-99 mg/dl Test 08/21/16 08:10 Range/Units Creatinine 0.62 0.60-1.40 mg/dl Est Creatinine Clear Calc Drug Dose 200.6 ml/min Estimated GFR () 125.0 Estimated GFR (Non- 107.8 Assessment & Plan Near obstructing sigmoid mass concerning for malignancy - pathology showing adenoma with high grade dysplasia suspicious for adenocarcinoma - +bowel function, large foul smelling bowel movement today - vitals stable Plan: Given patients morbid obesity along with comorbidities of CHF, Diabetes mellitus , HTN, hypercholesterolemia and recent hospitalization for CHF, Dr. Silva recommends consultation at Tertiary center either ([place] or [place]) for further evaluation and management of his near obstructing sigmoid mass given his high risk for surgical intervention. Given patient has had bowel movement and not completely obstructed, could be discharged and follow-up with tertiary center as an outpatient. Thank you for the consultation, our services signing off, please call with any questions or concerns. Dr. Silva has seen patient, agrees with above
[2016-08-21] MEDS ORDERED: VANCOMYCIN TROUGH ONE (13:30)
--- NOTE | 2016-08-21 16:28 | Pharmacy Progress Note ---
Pharmacy Abx Dose Progress Nt Date of Service Aug 21, 2016. Pharmacy Dosing Scope The patient is currently receiving the following antimicrobial agents per Pharmacy consult: 1500 mg IV/PO every 8 hours Objective Height (Feet): 6 Height (Inches): 0.00 Weight (Kilograms): 163.500 Vital Signs (Past 12Hrs) Vital Signs Past 12 Hours Date Time Temp Pulse Resp B/P (MAP) Pulse Ox O2 Delivery O2 Flow Rate FiO2 08/21/16 12:09 36.7 87 18 121/81 (94) 94 Room Air 08/21/16 09:10 85 149/88 (108) 08/21/16 08:00 Room Air 08/21/16 07:19 36.8 90 20 154/83 (106) 95 Room Air Lab Results (24Hrs) Item Value Date Time Vancomycin Level Trough 8.8 mcg/ml 08/21/16 1415 Micro Results Date/Time Source Procedure Growth Status 08/14/16 06:30 Nasal MRSA DNA Surveillance Screen - Final Specimen Negative for MRSA by DNA Probe Complete 08/14/16 19:45 Stool C.difficile Toxin B Gene (PCR) - Final No C. difficile toxin B gene detected Complete 08/14/16 19:45 Stool Shiga Toxin Test - Final No E. Coli shiga toxin 1 or shiga tox... Complete 08/14/16 19:45 Stool Stool Culture - Final NO SALMONELLA ISOLATED,... Complete Risk Factors for Resistance * Resident in a halfway or extended-care facility * Hospitalization for 48 hours or more within the past 90 days Assessment & Plan Assessment 61 year old male receiving Vancomycin for treatment of Cellulitis Day # 2 of antimicrobial therapy Plan Vancomycin IV * Trough level of 8.8 mcg/mL is subtherapeutic. * Change to Vancomycin 1700 mg (10 mg/kg) IV every 8 hours * Goal trough level 12 - 17 mcg/mL * Trough level ordered for 08/22 before dose at 1400. * Less than traditional dose selected due to likelihood of drug accumulation in obese patient. Pharmacy will continue to follow and will adjust dose/frequency as necessary. Thank you.
[2016-08-21] MEDS ORDERED: VNCE1000 IV (17:33)
--- NOTE | 2016-08-21 18:19 | Discharge Summary ---
Discharge Summary Date of Service Aug 21, 2016. (Keaton Monique MD) Discharge Summary Admission Date: Aug 15, 2016 at 10:26 Discharge Date: Aug 21, 2016 Discharge Disposition: Acute care facility Principal Diagnosis: Sigmoid carcinoma Immunizations: Have You Had Influenza Vaccine: N/A Influenza Vaccine Date: Jan 19, 2010 History of Tetanus Vaccine?: No History of Pneumococcal: No History of Hepatitis B Vaccine: No Consultations: Oncology General Surgery Gastroenterology (Keaton Monique MD) Problems/Secondary Diagnoses: 1. left-sided buttock cellulitis 2. chronic diastolic CHF 3. HTN 4. T2DM 5. Parkinson's disease 6. depression 7. partial colonic obstruction 2nd to sigmoid colon cancer Procedures: 1. CT abd/pelvis - IMPRESSION: 1. Moderate colonic dilatation with the ascending colon measuring up to 8.5 cm. No transition point to suggest mechanical obstruction. Moderate amount of poorly formed stool within the colon. The findings could reflect a colonic pseudoobstruction. A colitis could appear similar although no definite bowel wall thickening. 2. Decreased sensitivity for detection of mucosal lesions given CT technique. Apparent focal wall thickening of the mid sigmoid colon is probably within normal limits although a mucosal lesion could appear similar and this could be correlated with colonoscopy. 3. Redemonstration of bilateral hilar and mediastinal lymphadenopathy with several subpleural nodules which are unchanged since CT of November 15, 2014 and may reflect a granulomatous process. 2. ultrasound of left buttock - no evidence of buttock abscess (Sky Duran MD) Medication Reconciliation New Medications: Vancomycin HCl (Vancomycin HCl) 1,000 Mg/1000 Ml Soln 1700 MG IV Q8H for 7 Days, VIAL Continued Medications: Fluoxetine HCl (Fluoxetine HCl) 20 Mg Cap 20 MG PO DAILY, #30 Furosemide (Furosemide) 40 Mg Tab 40 MG PO QAM, #30 TAB 2 Refills Levodopa/Carbidopa (Sinemet 25MG/100MG) 1 Ea Tab 1 TAB PO QID@0800,1200,1600,2000, #120 TAB 2 Refills Lisinopril (Lisinopril) 5 Mg Tab 5 MG PO QAM, #30 TAB 3 Refills Metoprolol Succinate (Metoprolol Succinate ER) 25 Mg Tabcr 75 MG PO QAM, #90 TABS 2 Refills Potassium Chloride (Klor-Con M20) 20 Meq Tabcr 20 MEQ PO QAM, #30 TABS 2 Refills Tramadol HCl (Tramadol HCl) 50 Mg Tab 50 MG PO Q4H PRN for Pain, #30 TAB 0 Refills Discontinued Medications: Aspirin (Aspirin EC Low Dose) 81 Mg Ectab 81 MG PO DAILY, #30 TABS 3 Refills Metformin HCl (Metformin HCl) 500 Mg Tab 500 MG PO BID, #60 TABS 3 Refills Discharge Exam Patient did have a bowel movement this morning that was liquid in nature, no blood noted Buttock pain improving Denies any ab pain, nausea, vomiting and is tolerating regular diet Review of Systems: Constitutional: No fever, No chills, No sweats Respiratory: No shortness of breath Cardiovascular: No chest pain, No edema, No palpitations Abdomen: + diarrhea, No pain, No nausea, No vomiting, No constipation Neurologic: No paralysis, No weakness, No numbness/tingling, No vertigo Hematologic / Lymphatic: No abnormal bleeding/bruising Integumentary: + new/changing skin lesions (buttock pain improving) Physical Exam: General Appearance: WD/WN, no apparent distress, + obese, + pertinent finding (flat affect) ENT: hearing grossly normal, pharynx normal Respiratory/Chest: no respiratory distress, no accessory muscle use, + rhonchi (bilateral), + wheezing (bilateral) Cardiovascular: regular rate, rhythm, no murmur, normal peripheral pulses Abdomen / GI: non tender, soft, + distended, + pertinent finding (very high pitched bowel sounds) Extremities: no calf tenderness, normal capillary refill, non-tender, + pedal edema (trace to the mid walker bilaterally) Neurologic/Psychiatric: alert, normal mood/affect, oriented x 3 Skin: + pertinent finding (left buttock - erythematous area - probably 6-8 cm in diameter horizontally with medial area much more firm; no fluctuance/ abscess felt) (Keaton Monique MD) Hospital Course The patients is a 61 year old male who presented to [facility] from [facility] on 08/14 after he had recurrent vomiting and reportedly passed some BRPR. He had previously been admitted to [facility] from 08/06-07/13 for decompensated Heart Failure. Upon arrival to the ED he was noted to have a H/H of 12/39.2. A CT scan w/out PO or IV contrast was obtained and findings included moderate colonic dilatation with the ascending colon measuring up to 8.5cm. There was a moderate amount of stool noted in the colon as well as focal wall thickening in the sigmoid colon. In the ED he had persistent vomiting therefore an NG tube was placed, the patient was made NPO and GI were consulted. Repeat CT with contrast on 08/15 revealed thickening of his sigmoid colon concerning for a neoplasm. A colonoscopy 08/16 was limited by suboptimal prep but revealed a partially obstructing tumor in the sigmoid colon. A biopsy was taken. On 08/17 the patient was started on a clear liquid diet and his diet was advanced over the following few days. On 08/18 his pathology report showed at least an adenoma with high-grade dysplasia and were very worrisome for invasive carcinoma. Oncology was consulted and suggested that the patient have the tumor removed as he is at high risk of re-obstructing. They agreed to follow the patient as an outpatient to discuss chemotherapy options after the procedure. General surgery saw the patient and also said that the patient would be at high risk of reobstructing and would benefit from surgical intervention; however, due to the patient being high risk it was decided the patient should be transferred to [facility]. On 08/20 the patient was found to have a demarcated, tender erythematous rash on his right buttock. The patient had an US of the area which ruled out an abscess and the need for drainage. The patient was started on Vancomycin due to the potential risk for MRSA. On 08/21 the patients buttocks wound had improved substantially. On 08/21 the patient continued to have very high pitched bowel sounds on exam and had not passed gas for 4 days therefore it was decided to transfer the patient. [facility] were contacted who accepted the patient for further management on 08/21. Other medical problems Buttock cellulitis - Vanc IV Q8 - US negative for underlying abscess Chronic diastolic CHF - lasix 40mg daily, lisinopril continued - aspirin held due to bleeding HTN (well controlled) - Continue Metoprolol 25 mg daily DMII - On ISS in hospital - metformin has been held Parkinson's - on Sinemet, and has neural stimulator (placed at [facility] in [place]) Depression - fluoxetine 08/20/16 06:54 08/20/16 06:54 08/21/16 08:10 Test 08/18/16 19:47 08/19/16 07:31 08/19/16 11:35 08/19/16 16:32 Bedside Glucose 142 mg/dl (70-99) 116 mg/dl (70-99) 157 mg/dl (70-99) 115 mg/dl (70-99) Test 08/19/16 20:07 08/20/16 06:54 08/20/16 07:39 08/20/16 11:48 Bedside Glucose 131 mg/dl (70-99) 123 mg/dl (70-99) 159 mg/dl (70-99) Red Blood Count 4.10 M/uL (4.7-6.1) Mean Corpuscular Volume 83.4 fL (80-100) Mean Corpuscular Hemoglobin 24.6 pg (25-34) Mean Corpuscular Hemoglobin Concent 29.5 g/dl (32-36) RDW Standard Deviation 52.4 fL (36.4-46.3) RDW Coefficient of Variation 17.1 % (11.5-14.5) Mean Platelet Volume 9.8 fL (7.4-10.4) Anion Gap 7.0 mmol/L (3-11) Est Creatinine Clear Calc Drug Dose 203.9 ml/min Estimated GFR () 125.8 Estimated GFR (Non- 108.5 BUN/Creatinine Ratio 16.2 (10-20) Calcium Level 8.3 mg/dl (8.5-10.1) Test 08/20/16 16:29 08/20/16 20:40 08/21/16 07:40 08/21/16 08:10 Bedside Glucose 129 mg/dl (70-99) 116 mg/dl (70-99) 129 mg/dl (70-99) Est Creatinine Clear Calc Drug Dose 200.6 ml/min Estimated GFR () 125.0 Estimated GFR (Non- 107.8 Test 08/21/16 11:33 08/21/16 14:15 08/21/16 16:22 Bedside Glucose 160 mg/dl (70-99) 120 mg/dl (70-99) Vancomycin Level Trough 8.8 mcg/ml (SEE COMMENT) Current Inpatient Medications Medications (Trade) Dose Ordered Sig/Parris Route Start Time Stop Time Status Last Admin Dose Admin Acetaminophen (Tylenol Tab) 650 mg Q4H PRN PO 08/14/16 05:15 09/13/16 05:14 Future hold Ondansetron HCl (Zofran Inj) 4 mg Q6H PRN IV 08/14/16 05:15 09/13/16 05:14 Glucose (Glucose 40% Gel) UD PRN PO 08/14/16 05:15 09/13/16 05:14 Glucose (Glucose Chew Tab) 1 tabs UD PRN PO 08/14/16 05:15 09/13/16 05:14 Dextrose (Dextrose 50% 50ML Syringe) 50 ml UD PRN IV 08/14/16 05:15 09/13/16 05:14 Glucagon (Glucagon Inj) 1 mg UD PRN SQ 08/14/16 05:15 09/13/16 05:14 Carbidopa/Levodopa (Sinemet 25/ 100MG Tab) 1 tab QID@0800,1200,1600,2000 PO 08/14/16 08:00 09/13/16 07:59 Future hold 08/21/16 16:20 1 TAB Miscellaneous (Iv Fluids Completed) 1 ea PRN PRN N/A 08/14/16 05:30 08/14/17 05:29 Metoprolol Tartrate (Lopressor Iv) 5 mg Q6 PRN IV 08/14/16 12:00 09/13/16 11:59 08/16/16 07:30 5 MG Miconazole Nitrate (Desenex Powder) 1 appln PRN PRN EXT 08/14/16 09:30 09/13/16 09:29 08/21/16 10:30 1 APPLN Fluoxetine HCl (Prozac Cap) 20 mg QAM PO 08/16/16 09:00 09/15/16 08:59 08/21/16 09:05 20 MG Furosemide (Lasix Tab) 40 mg QAM PO 08/16/16 09:00 09/15/16 08:59 08/21/16 09:06 40 MG Lisinopril (Zestril Tab) 5 mg QAM PO 08/16/16 09:00 09/15/16 08:59 08/21/16 09:05 5 MG Insulin Aspart (novoLOG ASPART) SLIDING SCALE If C... ACHS SC 08/16/16 16:30 09/15/16 16:29 08/21/16 12:28 5 UNITS Metoprolol Succinate (Toprol Xl Tab) 25 mg BID PO 08/19/16 21:00 09/15/16 08:59 08/21/16 09:04 25 MG Polyethylene (Miralax Powder Packet) 17 gm DAILY PO 08/21/16 09:00 09/20/16 08:59 08/21/16 09:05 17 GM Vancomycin HCl 1500 mg/Sodium Chloride 530 ml @ 200 mls/hr Q8H IV 08/20/16 22:00 08/21/16 18:00 08/21/16 14:45 200 MLS/HR Vancomycin HCl (Consult) 1 ea UD PRN N/A 08/20/16 14:15 09/19/16 14:14 Vancomycin HCl 1700 mg/Sodium Chloride 534 ml @ 200 mls/hr Q8H IV 08/21/16 22:00 08/30/16 21:59 I would like to thank Dr. Joey Keys for accepting this patient in transfer for ongoing care. Total Time Spent: Less than 30 minutes This includes examination of the patient, discharge planning, medication reconciliation, and communication with other providers. (Keaton Monique .MD) Resident Physician Supervision Note: I was present with PGY2 Dr. Keaton Monique during the discharge history and exam. I discussed the case with the resident and agree with the findings and plan as documented in the discharge summary. Any exceptions or clarifications are listed here: none. 61yo male recently admitted for acute/chronic diastolic CHF who presented with vomiting due to a partial colonic obstruction. Found to have a mass in the sigmoid colon. Colonoscopy showed likely colon adenocarcinoma and biopsy confirmed, at the very least, high grade dysplasia. He was restarted on a diet and this was advanced as tolerated. He did not pass stool/flatus for 4-5 days post-colonoscopy but on day of transfer to [facility] he finally did so. Due to high risk of recurrent obstruction [facility] was contacted for transfer and ongoing management (general surgery at [facility] felt he was too high risk for surgical management here). He was in fact accepted and will likely undergo resection with colostomy formation. Accepting physician was Dr. Joey Keys. His hospitalization was complicated by left buttock cellulitis treated with IV vancomycin. Discharge exam - gen - obese, slow speech due to parkinson's neck - no JVD heart - RRR, extra beats, s1, s2, no murmur lungs - CTA b/l abd - distended, high-pitched bowel sounds, NT, no HSM ext - trace edema left leg, none on right, stasis changes skin - resolving cellulitis, left buttock All other medical problems remained stable while hospitalized. total time spent on discharge - > 30 minutes Documented By: Sky Duran MD (Sky Duran MD) Discharge Instructions Please refer to the electronic Patient Visit Report (Discharge Instructions) for additional information. (Keaton Monique MD) Additional Copies To [facility]; Nickolas Friedman M.D. ; [facility]; [facility]
[2016-08-21] MEDS ORDERED: VANCOMYCIN INJ 1,700 MG in SODIUM CHLORIDE 0.9% 500ML 500 ML IV SCH (22:00)
[2016-08-22] MEDS ORDERED: VANCOMYCIN TROUGH ONE (13:30)
== END 2016-08-21 22:01 | disposition short-term general hospital (02) | DRG 375 ==
LOC: EDBD 02:42 → C.EDA 02:44 → C.MED 05:09 → ENRESERV 05:15 → OBSVTOIN 08-15 10:26
PROVIDERS: ADMIT Hospitalist; ATTEND Internal Medicine
PROC: 0DBN8ZX Excision of Sigmoid Colon, Via Natural or Artificial Opening Endoscopic, Diagnostic (ICD-10-PCS; principal; 2016-08-16 12:43)
DX: C18.7 Malignant neoplasm of sigmoid colon (principal); I50.32 Chronic diastolic (congestive) heart failure; L03.317 Cellulitis of buttock; K56.69 Other intestinal obstruction; K52.9 Noninfective gastroenteritis and colitis, unspecified; E78.5 Hyperlipidemia, unspecified; I10 Essential (primary) hypertension; K59.00 Constipation, unspecified; E11.9 Type 2 diabetes mellitus without complications; F32.9 Major depressive disorder, single episode, unspecified; G20 Parkinson's disease